=== PATIENT | female | born 1950 | race African-American/Black ===

== ENCOUNTER 2018-08-03 12:03 | Inpatient (IN) | payer MEDICARE, MEDICAID ==
[2018-08-03] MEDS ORDERED: LORazepam 2 MG/ML INJ IM STA (12:26)
[2018-08-03] MEDS ORDERED: ZIPRASIDONE 20 MG VIAL IM STA (12:26)
--- NOTE | 2018-08-03 12:31 | ED ---
Psych HPI - General Chief Complaint: Psychiatric Symptoms Stated Complaint: MENTAL HEALTH PETITION Time Seen by Provider: 08/03/18 12:10 Source: police, RN notes reviewed Mode of arrival: ambulatory - History of Present Illness Initial Comments: This is a 67-year-old female with a known medical history was brought in by police under petition. Patient apparently is been demonstrating a flight of ideas and very aggressive and agitated. She's been seen things that aren't there including snakes. She stated that the poor putting nails and her feet. She apparently and route was having a conversation with no known person. Upon arrival she was very combative verbally abusive and at other times without answer any questions. No trauma is reported no other currently known modifying factors MD Complaint: other - Related Data Home Medications Medication Instructions Recorded Confirmed Cephalexin [Keflex] 500 mg PO QID 08/03/18 08/03/18 OLANZapine [ZyPREXA] 2.5 mg PO DAILY 08/03/18 08/03/18 metFORMIN HCL ER [Glucophage Xr] 1,000 mg PO PC-SUPPER 08/03/18 08/03/18 Allergies Allergy/AdvReac Type Severity Reaction Status Date / Time Unable to Assess Allergy Verified 08/03/18 12:08 Review of Systems ROS Statement: Those systems with pertinent positive or pertinent negative responses have been documented in the HPI. ROS Other: All systems not noted in ROS Statement are negative. Limitations: ROS unobtainable due to patients medical condition Past Medical History Past Medical History: Unable to Obtain Additional Past Medical History / Comment(s): refusing to respond History of Any Multi-Drug Resistant Organisms: Unobtainable Past Surgical History: Unable to Obtain Past Psychological History: Unable to Obtain Smoking Status: Unknown if ever smoked Past Alcohol Use History: Unable to Obtain Past Drug Use History: Unable to Obtain General Exam - General Exam Comments Initial Comments: This is a well-developed well-nourished awake alert agitated female Limitations: no limitations General appearance: alert, anxious Head exam: Present: atraumatic, normocephalic, normal inspection Eye exam: Present: normal appearance, PERRL, EOMI. Absent: scleral icterus, conjunctival injection, periorbital swelling ENT exam: Present: normal exam, mucous membranes moist Neck exam: Present: normal inspection. Absent: tenderness, meningismus, lymphadenopathy Respiratory exam: Present: normal lung sounds bilaterally. Absent: respiratory distress, wheezes, rales, rhonchi, stridor Cardiovascular Exam: Present: regular rate, normal rhythm, normal heart sounds. Absent: systolic murmur, diastolic murmur, rubs, gallop, clicks GI/Abdominal exam: Present: soft, normal bowel sounds. Absent: distended, tenderness, guarding, rebound, rigid Extremities exam: Present: normal inspection, full ROM, normal capillary refill. Absent: tenderness, pedal edema, joint swelling, calf tenderness Back exam: Present: normal inspection Neurological exam: Present: alert, altered, CN II-XII intact Psychiatric exam: Present: agitated, manic Skin exam: Present: warm, dry, intact, normal color. Absent: rash Course Vital Signs 08/03/18 08/03/18 12:52 15:32 Pulse Rate 68 78 Respiratory 20 15 Rate Blood Pressure 198/101 122/85 O2 Sat by Pulse 97 Oximetry Medical Decision Making - Medical Decision Making The patient was evaluated by the psychiatric service and will be admitted for inpatient treatment of acute psychosis. I did fill out a clinical certificate. - Lab Data Result diagrams: 08/03/18 13:18 08/03/18 13:18 Lab Results 08/03/18 08/03/18 08/03/18 Range/Units 13:18 13:18 13:18 WBC 6.2 (3.8-10.6) k/uL RBC 4.38 (3.80-5.40) m/uL Hgb 13.2 (11.4-16.0) gm/dL Hct 41.4 (34.0-46.0) % MCV 94.5 (80.0-100.0) fL MCH 30.1 (25.0-35.0) pg MCHC 31.9 (31.0-37.0) g/dL RDW 12.4 (11.5-15.5) % Plt Count 179 (150-450) k/uL Neutrophils % 72 % Lymphocytes % 20 % Monocytes % 5 % Eosinophils % 2 % Basophils % 0 % Neutrophils # 4.4 (1.3-7.7) k/uL Lymphocytes # 1.2 (1.0-4.8) k/uL Monocytes # 0.3 (0-1.0) k/uL Eosinophils # 0.1 (0-0.7) k/uL Basophils # 0.0 (0-0.2) k/uL Sodium 140 (137-145) mmol/L Potassium 3.9 (3.5-5.1) mmol/L Chloride 109 H (98-107) mmol/L Carbon Dioxide 21 L (22-30) mmol/L Anion Gap 10 mmol/L BUN 20 H (7-17) mg/dL Creatinine 0.75 (0.52-1.04) mg/dL Est GFR (CKD-EPI)AfAm >90 (>60 ml/min/1.73 sqM) Est GFR (CKD-EPI)NonAf 83 (>60 ml/min/1.73 sqM) Glucose 126 H (74-99) mg/dL Calcium 9.1 (8.4-10.2) mg/dL Total Bilirubin 0.3 (0.2-1.3) mg/dL AST 24 (14-36) U/L ALT 28 (9-52) U/L Alkaline Phosphatase 62 (38-126) U/L Ammonia 17 (<30) umol/L Troponin I (0.000-0.034) ng/mL Total Protein 6.6 (6.3-8.2) g/dL Albumin 3.6 (3.5-5.0) g/dL Urine Color Urine Appearance (Clear) Urine pH (5.0-8.0) Ur Specific [place] (1.001-1.035) Urine Protein (Negative) Urine Glucose (UA) (Negative) Urine Ketones (Negative) Urine Blood (Negative) Urine Nitrite (Negative) Urine Bilirubin (Negative) Urine Urobilinogen (<2.0) mg/dL Ur Leukocyte Esterase (Negative) Urine RBC (0-5) /hpf Urine WBC (0-5) /hpf Urine Bacteria (None) /hpf Urine Mucus (None) /hpf Salicylates <1.0 mg/dL Urine Opiates Screen (NotDetected) Ur Oxycodone Screen (NotDetected) Urine Methadone Screen (NotDetected) Ur Propoxyphene Screen (NotDetected) Acetaminophen <10.0 ug/mL Ur Barbiturates Screen (NotDetected) U Tricyclic Antidepress (NotDetected) Ur Phencyclidine Scrn (NotDetected) Ur Amphetamines Screen (NotDetected) U Methamphetamines Scrn (NotDetected) U Benzodiazepines Scrn (NotDetected) Urine Cocaine Screen (NotDetected) U Marijuana (THC) Screen (NotDetected) Serum Alcohol <10 mg/dL 08/03/18 08/03/18 Range/Units 13:18 14:15 WBC (3.8-10.6) k/uL RBC (3.80-5.40) m/uL Hgb (11.4-16.0) gm/dL Hct (34.0-46.0) % MCV (80.0-100.0) fL MCH (25.0-35.0) pg MCHC (31.0-37.0) g/dL RDW (11.5-15.5) % Plt Count (150-450) k/uL Neutrophils % % Lymphocytes % % Monocytes % % Eosinophils % % Basophils % % Neutrophils # (1.3-7.7) k/uL Lymphocytes # (1.0-4.8) k/uL Monocytes # (0-1.0) k/uL Eosinophils # (0-0.7) k/uL Basophils # (0-0.2) k/uL Sodium (137-145) mmol/L Potassium (3.5-5.1) mmol/L Chloride (98-107) mmol/L Carbon Dioxide (22-30) mmol/L Anion Gap mmol/L BUN (7-17) mg/dL Creatinine (0.52-1.04) mg/dL Est GFR (CKD-EPI)AfAm (>60 ml/min/1.73 sqM) Est GFR (CKD-EPI)NonAf (>60 ml/min/1.73 sqM) Glucose (74-99) mg/dL Calcium (8.4-10.2) mg/dL Total Bilirubin (0.2-1.3) mg/dL AST (14-36) U/L ALT (9-52) U/L Alkaline Phosphatase (38-126) U/L Ammonia (<30) umol/L Troponin I <0.012 (0.000-0.034) ng/mL Total Protein (6.3-8.2) g/dL Albumin (3.5-5.0) g/dL Urine Color Colorless Urine Appearance Clear (Clear) Urine pH 6.5 (5.0-8.0) Ur Specific [place] 1.005 (1.001-1.035) Urine Protein Negative (Negative) Urine Glucose (UA) Negative (Negative) Urine Ketones Negative (Negative) Urine Blood Negative (Negative) Urine Nitrite Negative (Negative) Urine Bilirubin Negative (Negative) Urine Urobilinogen <2.0 (<2.0) mg/dL Ur Leukocyte Esterase Moderate H (Negative) Urine RBC 2 (0-5) /hpf Urine WBC 7 H (0-5) /hpf Urine Bacteria Occasional H (None) /hpf Urine Mucus Rare H (None) /hpf Salicylates mg/dL Urine Opiates Screen Not Detected (NotDetected) Ur Oxycodone Screen Not Detected (NotDetected) Urine Methadone Screen Not Detected (NotDetected) Ur Propoxyphene Screen Not Detected (NotDetected) Acetaminophen ug/mL Ur Barbiturates Screen Not Detected (NotDetected) U Tricyclic Antidepress Not Detected (NotDetected) Ur Phencyclidine Scrn Not Detected (NotDetected) Ur Amphetamines Screen Not Detected (NotDetected) U Methamphetamines Scrn Not Detected (NotDetected) U Benzodiazepines Scrn Not Detected (NotDetected) Urine Cocaine Screen Not Detected (NotDetected) U Marijuana (THC) Screen Not Detected (NotDetected) Serum Alcohol mg/dL Disposition Clinical Impression: Acute psychosis Disposition: TRANSFER TO PSYCH HOSP/UNIT Condition: Stable Referrals: None,Stated [Primary Care Provider] - 1-2 days
[2018-08-03 13:30] LABS: Basophils % (A) 0 %; Eosinophils # (A) 0.1 k/uL (0-0.7); Eosinophils % (A) 2 %; HCT 41.4 % (34.0-46.0); HGB 13.2 gm/dL (11.4-16.0); Lymphocytes # (A) 1.2 k/uL (1.0-4.8); Lymphocytes % (A) 20 %; MCH 30.1 pg (25.0-35.0); MCHC 31.9 g/dL (31.0-37.0); MCV 94.5 fL (80.0-100.0); Monocytes # (A) 0.3 k/uL (0-1.0); Monocytes % (A) 5 %; Neutrophils # (A) 4.4 k/uL (1.3-7.7); Neutrophils % (A) 72 %; Platelet Count 179 k/uL (150-450); RBC 4.38 m/uL (3.80-5.40); RDW 12.4 % (11.5-15.5); WBC 6.2 k/uL (3.8-10.6)
[2018-08-03 13:42] LABS: ALT 28 U/L (9-52); AST 24 U/L (14-36); Acetaminophen <10.0 ug/mL; Albumin 3.6 g/dL (3.5-5.0); Alcohol <10 mg/dL; Alkaline Phosphatase 62 U/L (38-126); Anion Gap 10 mmol/L; Blood Urea Nitrogen 20 mg/dL (7-17); Calcium 9.1 mg/dL (8.4-10.2); Carbon Dioxide 21 mmol/L (22-30); Chloride 109 mmol/L (98-107); Glucose 126 mg/dL (74-99); Potassium 3.9 mmol/L (3.5-5.1); Salicylate <1.0 mg/dL; Sodium 140 mmol/L (137-145); Total Bilirubin 0.3 mg/dL (0.2-1.3); Total Protein 6.6 g/dL (6.3-8.2)
[2018-08-03 14:27] LABS: Appearance,Urine Clear (Clear); Bacteria,Urine Occasional /hpf; Bilirubin,Urine Negative (Negative); Blood,Urine Negative (Negative); Color,Urine Colorless; Glucose,Urine (UA) Negative (Negative); Ketones,Urine Negative (Negative); Leukocyte Esterase,Urine Moderate (Negative); Mucus,Urine Rare /hpf; Nitrite,Urine Negative (Negative); PH, Urine 6.5 (5.0-8.0); Protein,Urine Negative (Negative); RBC,Urine 2 /hpf (0-5); Specific Gravity,Urine 1.005 (1.001-1.035); Urobilinogen,Urine <2.0 mg/dL (<2.0); WBC,Urine 7 /hpf (0-5)
[2018-08-03 14:36] LABS: Amphetamine Screen,Urine Not Detected (NotDetected); Barbiturate Screen,Urine Not Detected (NotDetected); Benzodiazepines Screen,Urine Not Detected (NotDetected); Cocaine Screen,Urine Not Detected (NotDetected); Methadone Screen, Urine Not Detected (NotDetected); Opiate Screen,Urine Not Detected (NotDetected); Oxycodone Screen, Urine Not Detected (NotDetected); Phencyclidine Screen,Urine Not Detected (NotDetected); Tricyclic Antidepressant,Urine Not Detected (NotDetected); Urn Cannabinoid Scrn Not Detected (NotDetected)
[2018-08-03] MEDS ORDERED: ZIPRASIDONE 20 MG VIAL IM PRN (20:17)
[2018-08-03] MEDS ORDERED: LORazepam 1 MG TAB PO PRN (20:17)
[2018-08-03] MEDS ORDERED: MAGNESIUM HYDROXIDE 2,400 MG/10 ML CUP PO PRN (20:17)
[2018-08-03] MEDS ORDERED: MAG HYDROX/AL HYDROX/SIMETH 30 ML CUP PO PRN (20:17)
[2018-08-03] MEDS ORDERED: ACETAMINOPHEN TAB 325 MG TAB PO PRN (20:17)
--- NOTE | 2018-08-03 23:26 | P.HPMEDMHU ---
History of Present Illness H&P Date: 08/03/18 Chief Complaint: MHU HPI The patient is a 67-year-old -[place] female with a past medical history of type 2 diabetes and schizophrenia who is admitted to the mental health unit due to increase concerns for acute psychosis on her underlying schizophrenia. Apparently the patient has been having increased paranoid delusions regarding taking her medications, she has been reporting that olanzapine has snake toxin in it which she cannot take and can only take Zyprexa. She also reports that her primary care physician Dr. Cardona has weaned her off her psychiatric medications and metformin. The patient reports that she was brought here and was manhandled by police when they put and Her, she also reports that her neighbors have been using her apartment for prostitution and that she refuses to engage in those acts. Per EPS reports the patient was found in clothing soiled with feces and was was aggressive, paranoid and was not allowing ER staff to clean her up. She was given Geodon and Ativan. Review of Systems Pertinent positives per HPI, all other review of systems are otherwise negative Past Medical History Past Medical History: Unable to Obtain Additional Past Medical History / Comment(s): refusing to respond History of Any Multi-Drug Resistant Organisms: Unobtainable Past Surgical History: Unable to Obtain Past Psychological History: Unable to Obtain Smoking Status: Unknown if ever smoked Past Alcohol Use History: Unable to Obtain Past Drug Use History: Unable to Obtain Medications and Allergies Home Medications Medication Instructions Recorded Confirmed Type Cephalexin [Keflex] 500 mg PO QID 08/03/18 08/03/18 History OLANZapine [ZyPREXA] 2.5 mg PO DAILY 08/03/18 08/03/18 History metFORMIN HCL ER [Glucophage Xr] 1,000 mg PO PC-SUPPER 08/03/18 08/03/18 History Allergies Allergy/AdvReac Type Severity Reaction Status Date / Time Unable to Assess Allergy Verified 08/03/18 20:32 Physical Exam Vitals: Vital Signs Pulse Resp BP Pulse Ox 08/03/18 15:32 78 15 122/85 97 08/03/18 12:52 68 20 198/101 Intake and Output 08/03/18 08/03/18 08/04/18 14:59 22:59 06:59 Other: Weight 72.575 kg Constitutional: No acute distress, conversant, pleasant Eyes: Anicteric sclerae, moist conjunctiva, no lid-lag, PERRLA ENMT: NC/AT,Oropharynx clear, no erythema, exudates Neck:Supple, FROM, no masses, or JVD, No carotid bruits; No thyromegaly Lungs: Clear to auscultation, Clear to percussion, Normal respiratory effort, no accessory muscle use Cardiovascular: Heart regular in rate and rhythm, No murmurs, gallops, or rubs no peripheral edema Abdominal: Soft Nontender, nom distended, no guarding, no rebound or rigidity, Normoactive bowel sounds No hepatomegaly, No splenomegaly, No palpable mass No abdominal wall hernia noted Skin: Normal temperature, tone, texture, turgor, No induration No subcutaneous nodules, No rash, lesions, No ulcers Extremities:No digital cyanosis No clubbing, Pedal pulses intact and symmetrical Radial pulses intact and symmetrical Normal gait and station, No calf tenderness Psychiatric: Poor insight, tangential, pressured speech, paranoid delusions regarding medication, reporting prostitution at her apartment Neuro: Muscles Strength 5/5 in all 4 extremities, Sensation to light touch grossly present throughout, Cranial nerves II-XII grossly intact. No focal sensory deficits Cranial Nerve Examination - Cranial Nerves Cranial Nerve II- Optic: Intact Cranial Nerve III- Oculomotor: Intact Cranial Nerve IV- Trochlear: Intact Cranial Nerve V- Trigeminal: Intact Cranial Nerve - Abducens: Intact Cranial Nerve VII- Facial: Intact Cranial Nerve VIII- Auditory: Intact Cranial Nerve IX- Glossopharyngeal: Intact Cranial Nerve X- Vagus: Intact Cranial Nerve XI- Accessory: Intact Cranial Nerve XII- Hypoglossal: Intact Results CBC & Chem 7: 08/03/18 13:18 08/03/18 13:18 Labs: Abnormal Lab Results - Last 24 Hours (Table) 08/03/18 08/03/18 Range/Units 13:18 14:15 Chloride 109 H (98-107) mmol/L Carbon Dioxide 21 L (22-30) mmol/L BUN 20 H (7-17) mg/dL Glucose 126 H (74-99) mg/dL Ur Leukocyte Esterase Moderate H (Negative) Urine WBC 7 H (0-5) /hpf Urine Bacteria Occasional H (None) /hpf Urine Mucus Rare H (None) /hpf Thrombosis Risk Factor Assmnt - Choose All That Apply Each Factor Represents 1 point: Obesity (BMI >25) Each Risk Factor Represents 2 Points: Age 61-74 years Thrombosis Risk Factor Assessment Total Risk Factor Score: 3 Thrombosis Risk Factor Assessment Level: Moderate Risk Assessment and Plan (1) Schizophrenia, chronic with acute exacerbation Current Visit: Yes Status: Acute Code(s): F20.9 - SCHIZOPHRENIA, UNSPECIFIED SNOMED Code(s): 206472024 (2) Type 2 diabetes mellitus Current Visit: Yes Status: Acute Code(s): E11.9 - TYPE 2 DIABETES MELLITUS WITHOUT COMPLICATIONS SNOMED Code(s): 04949612 (3) Elevated blood pressure reading Current Visit: Yes Status: Acute Code(s): R03.0 - ELEVATED BLOOD-PRESSURE READING, W/O DIAGNOSIS OF HTN SNOMED Code(s): 28087982 Plan: The patient is admitted to the mental health unit with acute exacerbation of her schizophrenia with acute psychosis paranoid delusions, will defer to the inpatient psychiatry team regarding ongoing psychotropic medications and ongoing cognitive behavioral therapy. The patient is resumed on her metformin for her diabetes A1c is pending. The patient is noted to have elevated blood pressure but denies any history of hypertension, we'll continue to check her blood pressures and will start Norvasc and continue to monitor and follow her clinical course Further questions or concerns please do not hesitate to contact the sound inpatient team. I appreciate opportunity to be involved in ongoing care of this patient
[2018-08-04 02:03] VITALS: BMI 29.0
[2018-08-04] MEDS: amLODIPine 10 MG TAB PO SCH (07:51)
[2018-08-04] MEDS: OLANZapine 2.5 MG TAB PO SCH (07:51)
--- NOTE | 2018-08-04 10:08 | P.HP ---
Psychiatric H&P - . H&P Date: 08/04/18 History & Physical: Allergies Allergy/AdvReac Type Severity Reaction Status Date / Time Unable to Assess Allergy Verified 08/03/18 20:32 Vital Signs Temp 97.4 F L 08/04/18 01:36 Pulse 77 08/04/18 01:36 Resp 16 08/04/18 01:36 BP 185/97 08/04/18 01:36 Pulse Ox 97 08/03/18 15:32 Intake & Output 08/03/18 08/04/18 08/04/18 18:59 06:59 18:59 Weight 72.575 kg 71.9 kg Laboratory Last Values WBC 6.2 k/uL (3.8-10.6) 08/03/18 13:18 RBC 4.38 m/uL (3.80-5.40) 08/03/18 13:18 Hgb 13.2 gm/dL (11.4-16.0) 08/03/18 13:18 Hct 41.4 % (34.0-46.0) 08/03/18 13:18 MCV 94.5 fL (80.0-100.0) 08/03/18 13:18 MCH 30.1 pg (25.0-35.0) 08/03/18 13:18 MCHC 31.9 g/dL (31.0-37.0) 08/03/18 13:18 RDW 12.4 % (11.5-15.5) 08/03/18 13:18 Plt Count 179 k/uL (150-450) 08/03/18 13:18 Neutrophils % 72 % 08/03/18 13:18 Lymphocytes % 20 % 08/03/18 13:18 Monocytes % 5 % 08/03/18 13:18 Eosinophils % 2 % 08/03/18 13:18 Basophils % 0 % 08/03/18 13:18 Neutrophils # 4.4 k/uL (1.3-7.7) 08/03/18 13:18 Lymphocytes # 1.2 k/uL (1.0-4.8) 08/03/18 13:18 Monocytes # 0.3 k/uL (0-1.0) 08/03/18 13:18 Eosinophils # 0.1 k/uL (0-0.7) 08/03/18 13:18 Basophils # 0.0 k/uL (0-0.2) 08/03/18 13:18 Sodium 140 mmol/L (137-145) 08/03/18 13:18 Potassium 3.9 mmol/L (3.5-5.1) 08/03/18 13:18 Chloride 109 mmol/L (98-107) H 08/03/18 13:18 Carbon Dioxide 21 mmol/L (22-30) L 08/03/18 13:18 Anion Gap 10 mmol/L 08/03/18 13:18 BUN 20 mg/dL (7-17) H 08/03/18 13:18 Creatinine 0.75 mg/dL (0.52-1.04) 08/03/18 13:18 Est GFR (CKD-EPI)AfAm >90 (>60 ml/min/1.73 sqM) 08/03/18 13:18 Est GFR (CKD-EPI)NonAf 83 (>60 ml/min/1.73 sqM) 08/03/18 13:18 Glucose 126 mg/dL (74-99) H 08/03/18 13:18 Calcium 9.1 mg/dL (8.4-10.2) 08/03/18 13:18 Total Bilirubin 0.3 mg/dL (0.2-1.3) 08/03/18 13:18 AST 24 U/L (14-36) 08/03/18 13:18 ALT 28 U/L (9-52) 08/03/18 13:18 Alkaline Phosphatase 62 U/L (38-126) 08/03/18 13:18 Ammonia 17 umol/L (<30) 08/03/18 13:18 Troponin I <0.012 ng/mL (0.000-0.034) 08/03/18 13:18 Total Protein 6.6 g/dL (6.3-8.2) 08/03/18 13:18 Albumin 3.6 g/dL (3.5-5.0) 08/03/18 13:18 Urine Color Colorless 08/03/18 14:15 Urine Appearance Clear (Clear) 08/03/18 14:15 Urine pH 6.5 (5.0-8.0) 08/03/18 14:15 Ur Specific [place] 1.005 (1.001-1.035) 08/03/18 14:15 Urine Protein Negative (Negative) 08/03/18 14:15 Urine Glucose (UA) Negative (Negative) 08/03/18 14:15 Urine Ketones Negative (Negative) 08/03/18 14:15 Urine Blood Negative (Negative) 08/03/18 14:15 Urine Nitrite Negative (Negative) 08/03/18 14:15 Urine Bilirubin Negative (Negative) 08/03/18 14:15 Urine Urobilinogen <2.0 mg/dL (<2.0) 08/03/18 14:15 Ur Leukocyte Esterase Moderate (Negative) H 08/03/18 14:15 Urine RBC 2 /hpf (0-5) 08/03/18 14:15 Urine WBC 7 /hpf (0-5) H 08/03/18 14:15 Urine Bacteria Occasional /hpf (None) H 08/03/18 14:15 Urine Mucus Rare /hpf (None) H 08/03/18 14:15 Salicylates <1.0 mg/dL 08/03/18 13:18 Urine Opiates Screen Not Detected (NotDetected) 08/03/18 14:15 Ur Oxycodone Screen Not Detected (NotDetected) 08/03/18 14:15 Urine Methadone Screen Not Detected (NotDetected) 08/03/18 14:15 Ur Propoxyphene Screen Not Detected (NotDetected) 08/03/18 14:15 Acetaminophen <10.0 ug/mL 08/03/18 13:18 Ur Barbiturates Screen Not Detected (NotDetected) 08/03/18 14:15 U Tricyclic Antidepress Not Detected (NotDetected) 08/03/18 14:15 Ur Phencyclidine Scrn Not Detected (NotDetected) 08/03/18 14:15 Ur Amphetamines Screen Not Detected (NotDetected) 08/03/18 14:15 U Methamphetamines Scrn Not Detected (NotDetected) 08/03/18 14:15 U Benzodiazepines Scrn Not Detected (NotDetected) 08/03/18 14:15 Urine Cocaine Screen Not Detected (NotDetected) 08/03/18 14:15 U Marijuana (THC) Screen Not Detected (NotDetected) 08/03/18 14:15 Serum Alcohol <10 mg/dL 08/03/18 13:18 Assessment and Plan Assessment: Chief Complaint: Psychiatric Symptoms Stated Complaint: MENTAL HEALTH PETITION Source: police, RN notes reviewedand personal interview with client Mode of arrival: ambulatory - History of Present Illness Initial Comments: This is a 67-year-old female with a known medical history was brought in by police under petition. Patient apparently is been demonstrating a flight of ideas and very aggressive and agitated. She's been seen things that aren't there including snakes. She stated that the poor putting nails and her feet. She apparently and route was having a conversation with no known person. Upon arrival she was very combative verbally abusive and at other times without answer any questions. No trauma is reported no other currently known modifying factors Home Medications Medication Instructions Recorded Confirmed Cephalexin [Keflex] 500 mg PO QID 08/03/18 08/03/18 OLANZapine [ZyPREXA] 2.5 mg PO DAILY 08/03/18 08/03/18 metFORMIN HCL ER [Glucophage Xr] 1,000 mg PO PC-SUPPER 08/03/18 08/03/18 Past Medical History Past Medical History: Unable to Obtain Additional Past Medical History / Comment(s): refusing to respond History of Any Multi-Drug Resistant Organisms: Unobtainable Past Surgical History: Unable to Obtain Past Psychological History: Unable to Obtain Smoking Status: Unknown if ever smoked Past Alcohol Use History: Unable to Obtain Past Drug Use History: Unable to Obtain Musculoskeletal Examination - Abnormal/Involuntary Movements: [none] Strength: [greater than antigravity (greater than/equal to 3/5) in all extremities:] Muscle Tone: [no impairment, ] Gait: [grossly normal, ] Station: [grossly normal] Mental Status Examination - General Appearance: [ disheveled, casual, bizarre, appears older than stated age ] Speech/Language: [slow, rapid, slurred, rambled, mumbling, hesitant, halting, monotone, expressive,, loud,] Attitude/Behavior: [guarded, irritable, withdrawn, indifferent] Mood: [ depressed, euphoric, anxious, elated, irritable, angry, fearful] Affect: [lively, incongruent, labile, other] Orientation: [not time, person, place situation] Thought Content: [ delusions Risk Factors: [no suicidal (ideations, plan), and/or Homicidal (ideations, plan) ] Perception: [hallucinations (auditory] Thought Processes: [concrete, circumstantial, tangential Concentration/Attention Span: [impaired] [Per observation and interview with the patient] Recent Memory: impaired] [0 out of 3 in 3 minutes] Remote Memory: [ impaired] [past events, as related history] Intelligence: [below average] [based on history, based on vocabulary, syntax, grammar, and content] Judgement: [ poor] [per patient's behavior/history of present illness] Insight: [ poor] [understanding severity of illness/history of present illness] Admitting Diagnosis: [schizophrenia acute exacerbation with psychosis] Patient Strengths - Steady employment/financial stability: [disability] Housing stability: [x] Patient Limitations: [medication, non-compliance, pathological/unsupported environment, no interests, intellectual impairment, legal issues, lack of social supports] Initial Plan of Care: [she was on demand order for coming to the hospital and she has no insight she'll have to return to court for mandatory treatment. She' ll be admitted to [facility] environment, medical workup, psychiatric workup in process, nursing evaluation, social work evaluation, and recreational therapy.] Estimated Length of Stay: [5-7 days] Initial Discharge Plan: [ [facility], referred to therapist] Prognosis: [guarded] Justification for Inpatient Hospitalization - [Hallucinations, delusions, agitation, anxiety, depression resulting in significant loss of functioning.] [Dangerous to self, others, or property with need for controlled environment.] [Emotional or behavioral conditions and complications requiring 24 hour medical and nursing care.] [Need for special drug therapy, or other therapeutic program requiring continuous hospitalization.] [Failure of social or occupational functioning.] [Inability to meet basic life and health needs.] [Legally mandated admission.] [Failure of treatment at a lower level of care.] (1) Schizophrenia, chronic with acute exacerbation Current Visit: Yes Status: Acute Priority: High Code(s): F20.9 - SCHIZOPHRENIA, UNSPECIFIED SNOMED Code(s): 451178130 Time with Patient: Less than 30
[2018-08-04] MEDS: metFORMIN 500 MG TAB PO SCH (17:15)
--- NOTE | 2018-08-05 08:47 | P.PN ---
Subjective Progress Note Date: 08/05/18 Principal diagnosis: mute schizoaffective disorder his is a 67-year-old female with a known medical history was brought in by police under petition. Patient apparently is been demonstrating a flight of ideas and very aggressive and agitated. She's been seen things that aren't there including snakes. She stated that the poor putting nails and her feet. She apparently and route was having a conversation with no known person. Upon arrival she was very combative verbally abusive and at other times without answer any questions. No trauma is reported no other currently known modifying factors Home Medications Medication Instructions Recorded Confirmed Cephalexin [Keflex] 500 mg PO QID 08/03/18 08/03/18 OLANZapine [ZyPREXA] 2.5 mg PO DAILY 08/03/18 08/03/18 metFORMIN HCL ER [Glucophage Xr] 1,000 mg PO PC-SUPPER 08/03/18 08/03/18 Past Medical History Past Medical History: Unable to Obtain Additional Past Medical History / Comment(s): refusing to respond History of Any Multi-Drug Resistant Organisms: Unobtainable Past Surgical History: Unable to Obtain Past Psychological History: Unable to Obtain Smoking Status: Unknown if ever smoked Past Alcohol Use History: Unable to Obtain Past Drug Use History: Unable to Obtain Musculoskeletal Examination - Abnormal/Involuntary Movements: [none] Strength: [greater than antigravity (greater than/equal to 3/5) in all extremities:] Muscle Tone: [no impairment, ] Gait: [grossly normal, ] Station: [grossly normal] Mental Status Examination - General Appearance: [ disheveled, casual, bizarre, appears older than stated age ] Speech/Language: [slow, rapid, slurred, rambled, mumbling, hesitant, halting, monotone, expressive,, loud,] Attitude/Behavior: [guarded, irritable, withdrawn, indifferent] Mood: [ depressed, euphoric, anxious, elated, irritable, angry, fearful] Affect: [lively, incongruent, labile, other] Orientation: [not time, person, place situation] Thought Content: [ delusions Risk Factors: [no suicidal (ideations, plan), and/or Homicidal (ideations, plan) ] Perception: [hallucinations (auditory] Thought Processes: [concrete, circumstantial, tangential Concentration/Attention Span: [impaired] [Per observation and interview with the patient] Recent Memory: impaired] [0 out of 3 in 3 minutes] Remote Memory: [ impaired] [past events, as related history] Intelligence: [below average] [based on history, based on vocabulary, syntax, grammar, and content] Judgement: [ poor] [per patient's behavior/history of present illness] Insight: [ poor] [understanding severity of illness/history of present illness] Admitting Diagnosis: [schizophrenia acute exacerbation with psychosis] Patient Strengths - Steady employment/financial stability: [disability] Housing stability: [x] Patient Limitations: [medication, non-compliance, pathological/unsupported environment, no interests, intellectual impairment, legal issues, lack of social supports] Initial Plan of Care: [she was on demand order for coming to the hospital and she has no insight she'll have to return to court for mandatory treatment. She' ll be admitted to [facility], medical workup, psychiatric workup in process, nursing evaluation, social work evaluation, and recreational therapy.] Estimated Length of Stay: [5-7 days] Initial Discharge Plan: [ [facility], referred to therapist] Prognosis: [guarded] Objective - Vital Signs Vital signs: Vital Signs Temp 98.0 F 08/05/18 06:16 Pulse 68 08/05/18 06:16 Resp 14 08/05/18 06:16 BP 133/77 08/05/18 06:16 Pulse Ox 97 08/03/18 15:32 - Labs CBC & Chem 7: 08/03/18 13:18 08/03/18 13:18 Assessment and Plan (1) Schizophrenia, chronic with acute exacerbation Current Visit: Yes Status: Acute Priority: High Code(s): F20.9 - SCHIZOPHRENIA, UNSPECIFIED SNOMED Code(s): 960809757
[2018-08-05] MEDS: OLANZapine 2.5 MG TAB PO SCH (09:14)
[2018-08-05] MEDS: amLODIPine 10 MG TAB PO SCH (09:14)
[2018-08-05] MEDS: metFORMIN 500 MG TAB PO SCH (16:31)
[2018-08-06] MEDS: OLANZapine 2.5 MG TAB PO SCH (07:49)
[2018-08-06] MEDS: amLODIPine 10 MG TAB PO SCH (07:49)
--- NOTE | 2018-08-06 09:34 | P.PN ---
Subjective Progress Note Date: 08/06/18 Principal diagnosis: mute schizoaffective disorder his is a 67-year-old female with a known medical history was brought in by police under petition. Patient apparently is been demonstrating a flight of ideas and very aggressive and agitated. She's been seen things that aren't there including snakes. She stated that the poor putting nails and her feet. She apparently and route was having a conversation with no known person. Upon arrival she was very combative verbally abusive and at other times without answer any questions. No trauma is reported no other currently known modifying factors Home Medications Medication Instructions Recorded Confirmed Cephalexin [Keflex] 500 mg PO QID 08/03/18 08/03/18 OLANZapine [ZyPREXA] 2.5 mg PO DAILY 08/03/18 08/03/18 metFORMIN HCL ER [Glucophage Xr] 1,000 mg PO PC-SUPPER 08/03/18 08/03/18 Past Medical History Past Medical History: Unable to Obtain Additional Past Medical History / Comment(s): refusing to respond History of Any Multi-Drug Resistant Organisms: Unobtainable Past Surgical History: Unable to Obtain Past Psychological History: Unable to Obtain Smoking Status: Unknown if ever smoked Past Alcohol Use History: Unable to Obtain Past Drug Use History: Unable to Obtain Musculoskeletal Examination - Abnormal/Involuntary Movements: [none] Strength: [greater than antigravity (greater than/equal to 3/5) in all extremities:] Muscle Tone: [no impairment, ] Gait: [grossly normal, ] Station: [grossly normal] Mental Status Examination - General Appearance: [ disheveled, casual, bizarre, appears older than stated age ] Speech/Language: [slow, rapid, slurred, rambled, mumbling, hesitant, halting, monotone, expressive,, loud,] Attitude/Behavior: [guarded, irritable, withdrawn, indifferent] Mood: [ depressed, euphoric, anxious, elated, irritable, angry, fearful] Affect: [lively, incongruent, labile, other] Orientation: [not time, person, place situation] Thought Content: [ delusions Risk Factors: [no suicidal (ideations, plan), and/or Homicidal (ideations, plan) ] Perception: [hallucinations (auditory] Thought Processes: [concrete, circumstantial, tangential Concentration/Attention Span: [impaired] [Per observation and interview with the patient] Recent Memory: impaired] [0 out of 3 in 3 minutes] Remote Memory: [ impaired] [past events, as related history] Intelligence: [below average] [based on history, based on vocabulary, syntax, grammar, and content] Judgement: [ poor] [per patient's behavior/history of present illness] Insight: [ poor] [understanding severity of illness/history of present illness] Admitting Diagnosis: [schizophrenia acute exacerbation with psychosis] Patient Strengths - Steady employment/financial stability: [disability] Housing stability: [x] Patient Limitations: [medication, non-compliance, pathological/unsupported environment, no interests, intellectual impairment, legal issues, lack of social supports] Initial Plan of Care: [she was on demand order for coming to the hospital and she has no insight she'll have to return to court for mandatory treatment. She' ll be admitted to [facility], medical workup, psychiatric workup in process, nursing evaluation, social work evaluation, and recreational therapy.] Estimated Length of Stay: [5-7 days] Initial Discharge Plan: [ [facility], referred to therapist] Prognosis: [guarded] Objective - Vital Signs Vital signs: Vital Signs Temp 98.2 F 08/06/18 05:48 Pulse 91 08/06/18 05:48 Resp 14 08/06/18 05:48 BP 120/79 08/06/18 05:48 Pulse Ox 97 08/03/18 15:32 - Labs CBC & Chem 7: 08/03/18 13:18 08/03/18 13:18 Assessment and Plan Assessment: Chief Complaint: Psychiatric Symptoms Stated Complaint: [facility] [facility] Source: police, RN notes reviewedand personal interview with client Mode of arrival: ambulatory - History of Present Illness Initial Comments: This is a 67-year-old female with a known medical history was brought in by police under petition. Patient apparently is been demonstrating a flight of ideas and very aggressive and agitated. She's been seen things that aren't there including snakes. She stated that the poor putting nails and her feet. She apparently and route was having a conversation with no known person. Upon arrival she was very combative verbally abusive and at other times without answer any questions. No trauma is reported no other currently known modifying factors Home Medications Medication Instructions Recorded Confirmed Cephalexin [Keflex] 500 mg PO QID 08/03/18 08/03/18 OLANZapine [ZyPREXA] 2.5 mg PO DAILY 08/03/18 08/03/18 metFORMIN HCL ER [Glucophage Xr] 1,000 mg PO PC-SUPPER 08/03/18 08/03/18 Past Medical History Past Medical History: Unable to Obtain Additional Past Medical History / Comment(s): refusing to respond History of Any Multi-Drug Resistant Organisms: Unobtainable Past Surgical History: Unable to Obtain Past Psychological History: Unable to Obtain Smoking Status: Unknown if ever smoked Past Alcohol Use History: Unable to Obtain Past Drug Use History: Unable to Obtain Musculoskeletal Examination - Abnormal/Involuntary Movements: [none] Strength: [greater than antigravity (greater than/equal to 3/5) in all extremities:] Muscle Tone: [no impairment, ] Gait: [grossly normal, ] Station: [grossly normal] Mental Status Examination - General Appearance: [ disheveled, casual, bizarre, appears older than stated age ] Speech/Language: [slow, rapid, slurred, rambled, mumbling, hesitant, halting, monotone, expressive,, loud,] Attitude/Behavior: [guarded, irritable, withdrawn, indifferent] Mood: [ depressed, euphoric, anxious, elated, irritable, angry, fearful] Affect: [lively, incongruent, labile, other] Orientation: [not time, person, place situation] Thought Content: [ delusions Risk Factors: [no suicidal (ideations, plan), and/or Homicidal (ideations, plan) ] Perception: [hallucinations (auditory] Thought Processes: [concrete, circumstantial, tangential Concentration/Attention Span: [impaired] [Per observation and interview with the patient] Recent Memory: impaired] [0 out of 3 in 3 minutes] Remote Memory: [ impaired] [past events, as related history] Intelligence: [below average] [based on history, based on vocabulary, syntax, grammar, and content] Judgement: [ poor] [per patient's behavior/history of present illness] Insight: [ poor] [understanding severity of illness/history of present illness] Admitting Diagnosis: [schizophrenia acute exacerbation with psychosis] Patient Strengths - Steady employment/financial stability: [disability] Housing stability: [x] Patient Limitations: [medication, non-compliance, pathological/unsupported environment, no interests, intellectual impairment, legal issues, lack of social supports] Initial Plan of Care: [she was on demand order for coming to the hospital and she has no insight she'll have to return to court for mandatory treatment. She' ll be admitted to [facility], medical workup, psychiatric workup in process, nursing evaluation, social work evaluation, and recreational therapy.] Estimated Length of Stay: [5-7 days] Initial Discharge Plan: [ [facility], referred to therapist] Prognosis: [guarded] Justification for Inpatient Hospitalization - [Hallucinations, delusions, agitation, anxiety, depression resulting in significant loss of functioning.] [Dangerous to self, others, or property with need for controlled environment.] [Emotional or behavioral conditions and complications requiring 24 hour medical and nursing care.] [Need for special drug therapy, or other therapeutic program requiring continuous hospitalization.] [Failure of social or occupational functioning.] [Inability to meet basic life and health needs.] [Legally mandated admission.] [Failure of treatment at a lower level of care.] (1) Schizophrenia, chronic with acute exacerbation Current Visit: Yes Status: Acute Priority: High Code(s): F20.9 - SCHIZOPHRENIA, UNSPECIFIED SNOMED Code(s): 669959952 Time with Patient: Less than 30
[2018-08-06] MEDS: metFORMIN 500 MG TAB PO SCH (16:42)
[2018-08-07] MEDS: OLANZapine 2.5 MG TAB PO SCH (09:15)
[2018-08-07] MEDS: amLODIPine 10 MG TAB PO SCH (09:15)
--- NOTE | 2018-08-07 12:19 | P.PN ---
Subjective Progress Note Date: 08/07/18 Principal diagnosis: mute schizoaffective disorder his is a 67-year-old female with a known medical history was brought in by police under petition. Patient apparently is been demonstrating a flight of ideas and very aggressive and agitated. She's been seen things that aren't there including snakes. Interval history today: This 67-year-old -[place] female still remains elusive and very disheveled bizarre as stated in the mental status examination below. She is not on participating in treatment. Home Medications Medication Instructions Recorded Confirmed Cephalexin [Keflex] 500 mg PO QID 08/03/18 08/03/18 OLANZapine [ZyPREXA] 2.5 mg PO DAILY 08/03/18 08/03/18 metFORMIN HCL ER [Glucophage Xr] 1,000 mg PO PC-SUPPER 08/03/18 08/03/18 Past Medical History Past Medical History: Unable to Obtain Additional Past Medical History / Comment(s): refusing to respond History of Any Multi-Drug Resistant Organisms: Unobtainable Past Surgical History: Unable to Obtain Past Psychological History: Unable to Obtain Smoking Status: Unknown if ever smoked Past Alcohol Use History: Unable to Obtain Past Drug Use History: Unable to Obtain Musculoskeletal Examination - Abnormal/Involuntary Movements: [none] Strength: [greater than antigravity (greater than/equal to 3/5) in all extremities:] Muscle Tone: [no impairment, ] Gait: [grossly normal, ] Station: [grossly normal] Mental Status Examination - General Appearance: [ disheveled, casual, bizarre, appears older than stated age ] Speech/Language: [slow, rapid, slurred, rambled, mumbling, hesitant, halting, monotone, expressive,, loud,] Attitude/Behavior: [guarded, irritable, withdrawn, indifferent] Mood: [ depressed, euphoric, anxious, elated, irritable, angry, fearful] Affect: [lively, incongruent, labile, other] Orientation: [not time, person, place situation] Thought Content: [ delusions Risk Factors: [no suicidal (ideations, plan), and/or Homicidal (ideations, plan) ] Perception: [hallucinations (auditory] Thought Processes: [concrete, circumstantial, tangential Concentration/Attention Span: [impaired] [Per observation and interview with the patient] Recent Memory: impaired] [0 out of 3 in 3 minutes] Remote Memory: [ impaired] [past events, as related history] Intelligence: [below average] [based on history, based on vocabulary, syntax, grammar, and content] Judgement: [ poor] [per patient's behavior/history of present illness] Insight: [ poor] [understanding severity of illness/history of present illness] Admitting Diagnosis: [schizophrenia acute exacerbation with psychosis] Patient Strengths - Steady employment/financial stability: [disability] Housing stability: [x] Patient Limitations: [medication, non-compliance, pathological/unsupported environment, no interests, intellectual impairment, legal issues, lack of social supports] Initial Plan of Care: [she was on demand order for coming to the hospital and she has no insight she'll have to return to court for mandatory treatment. She' ll be admitted to [facility], medical workup, psychiatric workup in process, nursing evaluation, social work evaluation, and recreational therapy.] Estimated Length of Stay: [5-7 days] Initial Discharge Plan: [ [facility], referred to therapist] Prognosis: [guarded] Objective - Vital Signs Vital signs: Vital Signs Temp 98.3 F 08/07/18 06:23 Pulse 72 08/07/18 10:34 Resp 14 08/07/18 06:23 BP 133/75 08/07/18 10:34 Pulse Ox 97 08/03/18 15:32 - Labs CBC & Chem 7: 08/03/18 13:18 08/03/18 13:18 Assessment and Plan (1) Schizophrenia, chronic with acute exacerbation Current Visit: Yes Status: Acute Priority: High Code(s): F20.9 - SCHIZOPHRENIA, UNSPECIFIED SNOMED Code(s): 648421758
[2018-08-07] MEDS: metFORMIN 500 MG TAB PO SCH (18:07)
[2018-08-08] MEDS: OLANZapine 2.5 MG TAB PO SCH (08:08)
[2018-08-08] MEDS: amLODIPine 10 MG TAB PO SCH (08:08)
--- NOTE | 2018-08-08 13:57 | P.PN ---
Subjective Progress Note Date: 08/08/18 Principal diagnosis: mute schizoaffective disorder his is a 67-year-old female with a known medical history was brought in by police under petition. Patient apparently is been demonstrating a flight of ideas and very aggressive and agitated. She's been seen things that aren't there including snakes. Interval history today: This 67-year-old -[place] female still remains elusive and very disheveled bizarre as stated in the mental status examination below. She is not on participating in treatment. Home Medications Medication Instructions Recorded Confirmed Cephalexin [Keflex] 500 mg PO QID 08/03/18 08/03/18 OLANZapine [ZyPREXA] 2.5 mg PO DAILY 08/03/18 08/03/18 metFORMIN HCL ER [Glucophage Xr] 1,000 mg PO PC-SUPPER 08/03/18 08/03/18 Past Medical History Past Medical History: Unable to Obtain Additional Past Medical History / Comment(s): refusing to respond History of Any Multi-Drug Resistant Organisms: Unobtainable Past Surgical History: Unable to Obtain Past Psychological History: Unable to Obtain Smoking Status: Unknown if ever smoked Past Alcohol Use History: Unable to Obtain Past Drug Use History: Unable to Obtain Objective - Vital Signs Vital signs: Vital Signs Temp 97.9 F 08/08/18 02:21 Pulse 79 08/08/18 02:21 Resp 16 08/08/18 02:21 BP 125/84 08/08/18 02:21 Pulse Ox 97 08/03/18 15:32 - Labs CBC & Chem 7: 08/03/18 13:18 08/03/18 13:18 Assessment and Plan Assessment: Musculoskeletal Examination - Abnormal/Involuntary Movements: [none] Strength: [greater than antigravity (greater than/equal to 3/5) in all extremities:] Muscle Tone: [no impairment, ] Gait: [grossly normal, ] Station: [grossly normal] Mental Status Examination - General Appearance: [ disheveled, casual, bizarre, appears older than stated age ] Speech/Language: [slow, rapid, slurred, rambled, mumbling, hesitant, halting, monotone, expressive,, loud,] Attitude/Behavior: [guarded, irritable, withdrawn, indifferent] Mood: [ depressed, euphoric, anxious, elated, irritable, angry, fearful] Affect: [lively, incongruent, labile, other] Orientation: [not time, person, place situation] Thought Content: [ delusions Risk Factors: [no suicidal (ideations, plan), and/or Homicidal (ideations, plan) ] Perception: [hallucinations (auditory] Thought Processes: [concrete, circumstantial, tangential Concentration/Attention Span: [impaired] [Per observation and interview with the patient] Recent Memory: impaired] [0 out of 3 in 3 minutes] Remote Memory: [ impaired] [past events, as related history] Intelligence: [below average] [based on history, based on vocabulary, syntax, grammar, and content] Judgement: [ poor] [per patient's behavior/history of present illness] Insight: [ poor] [understanding severity of illness/history of present illness] Admitting Diagnosis: [schizophrenia acute exacerbation with psychosis] Patient Strengths - Steady employment/financial stability: [disability] Housing stability: [x] Patient Limitations: [medication, non-compliance, pathological/unsupported environment, no interests, intellectual impairment, legal issues, lack of social supports] (1) Schizophrenia, chronic with acute exacerbation Current Visit: Yes Status: Acute Priority: High Code(s): F20.9 - SCHIZOPHRENIA, UNSPECIFIED SNOMED Code(s): 712354224 Plan: Plan of Care: [she was on demand order for coming to the hospital and she has no insight she'll have to return to court for mandatory treatment. She'll be admitted to [facility], medical workup, psychiatric workup in process, nursing evaluation, social work evaluation, and recreational therapy.] Awaiting court Estimated Length of Stay: [5-7 days] Initial Discharge Plan: [ [facility], referred to therapist] Prognosis: [guarded]
[2018-08-08] MEDS: metFORMIN 500 MG TAB PO SCH (16:13)
[2018-08-09] MEDS: amLODIPine 10 MG TAB PO SCH (07:39)
[2018-08-09] MEDS: OLANZapine 2.5 MG TAB PO SCH (07:39)
--- NOTE | 2018-08-09 11:55 | P.PN ---
Subjective Progress Note Date: 08/09/18 Principal diagnosis: mute schizoaffective disorder his is a 67-year-old female with a known medical history was brought in by police under petition. Patient apparently is been demonstrating a flight of ideas and very aggressive and agitated. She's been seen things that aren't there including snakes. Interval history today: This 67-year-old -[place] female still remains elusive and very disheveled bizarre as stated in the mental status examination below. She is not on participating in treatment. Home Medications Medication Instructions Recorded Confirmed Cephalexin [Keflex] 500 mg PO QID 08/03/18 08/03/18 OLANZapine [ZyPREXA] 2.5 mg PO DAILY 08/03/18 08/03/18 metFORMIN HCL ER [Glucophage Xr] 1,000 mg PO PC-SUPPER 08/03/18 08/03/18 Past Medical History Past Medical History: Unable to Obtain Additional Past Medical History / Comment(s): refusing to respond History of Any Multi-Drug Resistant Organisms: Unobtainable Past Surgical History: Unable to Obtain Past Psychological History: Unable to Obtain Smoking Status: Unknown if ever smoked Past Alcohol Use History: Unable to Obtain Past Drug Use History: Unable to Obtain Objective - Vital Signs Vital signs: Vital Signs Temp 97.7 F 08/09/18 06:47 Pulse 58 L 08/09/18 06:47 Resp 18 08/09/18 06:47 BP 152/83 08/09/18 06:47 Pulse Ox 97 08/03/18 15:32 - Labs CBC & Chem 7: 08/03/18 13:18 08/03/18 13:18 Assessment and Plan Assessment: Musculoskeletal Examination - Abnormal/Involuntary Movements: [none] Strength: [greater than antigravity (greater than/equal to 3/5) in all extremities:] Muscle Tone: [no impairment, ] Gait: [grossly normal, ] Station: [grossly normal] Mental Status Examination - General Appearance: [ disheveled, casual, bizarre, appears older than stated age ] Speech/Language: [slow, rapid, slurred, rambled, mumbling, hesitant, halting, monotone, expressive,, loud,] Attitude/Behavior: [guarded, irritable, withdrawn, indifferent] Mood: [ depressed, euphoric, anxious, elated, irritable, angry, fearful] Affect: [lively, incongruent, labile, other] Orientation: [not time, person, place situation] Thought Content: [ delusions Risk Factors: [no suicidal (ideations, plan), and/or Homicidal (ideations, plan) ] Perception: [hallucinations (auditory] Thought Processes: [concrete, circumstantial, tangential Concentration/Attention Span: [impaired] [Per observation and interview with the patient] Recent Memory: impaired] [0 out of 3 in 3 minutes] Remote Memory: [ impaired] [past events, as related history] Intelligence: [below average] [based on history, based on vocabulary, syntax, grammar, and content] Judgement: [ poor] [per patient's behavior/history of present illness] Insight: [ poor] [understanding severity of illness/history of present illness] Admitting Diagnosis: [schizophrenia acute exacerbation with psychosis] Patient Strengths - Steady employment/financial stability: [disability] Housing stability: [x] Patient Limitations: [medication, non-compliance, pathological/unsupported environment, no interests, intellectual impairment, legal issues, lack of social supports] (1) Schizophrenia, chronic with acute exacerbation Current Visit: Yes Status: Acute Priority: High Code(s): F20.9 - SCHIZOPHRENIA, UNSPECIFIED SNOMED Code(s): 760776396 Plan: Plan of Care: [she was on demand order for coming to the hospital and she has no insight she'll have to return to court for mandatory treatment. She'll be admitted to [facility], medical workup, psychiatric workup in process, nursing evaluation, social work evaluation, and recreational therapy.] Awaiting court Estimated Length of Stay: [5-7 days] Initial Discharge Plan: [ [facility], referred to therapist] Prognosis: [guarded] Time with Patient: Less than 30
[2018-08-09] MEDS: metFORMIN 500 MG TAB PO SCH (15:47)
[2018-08-10] MEDS: amLODIPine 10 MG TAB PO SCH (09:04)
[2018-08-10] MEDS: OLANZapine 2.5 MG TAB PO SCH (09:04)
--- NOTE | 2018-08-10 09:57 | P.PN ---
Subjective Progress Note Date: 08/10/18 Principal diagnosis: mute schizoaffective disorder his is a 67-year-old female with a known medical history was brought in by police under petition. Patient apparently is been demonstrating a flight of ideas and very aggressive and agitated. She's been seen things that aren't there including snakes. Interval history today: This 67-year-old -[place] female still remains elusive and very disheveled bizarre as stated in the mental status examination below. She is not participating in treatment. Home Medications Medication Instructions Recorded Confirmed Cephalexin [Keflex] 500 mg PO QID 08/03/18 08/03/18 OLANZapine [ZyPREXA] 2.5 mg PO DAILY 08/03/18 08/03/18 metFORMIN HCL ER [Glucophage Xr] 1,000 mg PO PC-SUPPER 08/03/18 08/03/18 Past Medical History Past Medical History: Unable to Obtain Additional Past Medical History / Comment(s): refusing to respond History of Any Multi-Drug Resistant Organisms: Unobtainable Past Surgical History: Unable to Obtain Past Psychological History: Unable to Obtain Smoking Status: Unknown if ever smoked Past Alcohol Use History: Unable to Obtain Past Drug Use History: Unable to Obtain Objective - Vital Signs Vital signs: Vital Signs Temp 98.2 F 08/10/18 06:23 Pulse 85 08/10/18 06:23 Resp 18 08/10/18 06:23 BP 157/87 08/10/18 06:23 Pulse Ox 97 08/03/18 15:32 - Labs CBC & Chem 7: 08/03/18 13:18 08/03/18 13:18 Assessment and Plan Assessment: Musculoskeletal Examination - Abnormal/Involuntary Movements: [none] Strength: [greater than antigravity (greater than/equal to 3/5) in all extremities:] Muscle Tone: [no impairment, ] Gait: [grossly normal, ] Station: [grossly normal] Mental Status Examination - General Appearance: [ disheveled, casual, bizarre, appears older than stated age ] Speech/Language: [slow, rapid, slurred, rambled, mumbling, hesitant, halting, monotone, expressive,, loud,] Attitude/Behavior: [guarded, irritable, withdrawn, indifferent] Mood: [ depressed, euphoric, anxious, elated, irritable, angry, fearful] Affect: [lively, incongruent, labile, other] Orientation: [not time, person, place situation] Thought Content: [ delusions Risk Factors: [no suicidal (ideations, plan), and/or Homicidal (ideations, plan) ] Perception: [hallucinations (auditory] Thought Processes: [concrete, circumstantial, tangential Concentration/Attention Span: [impaired] [Per observation and interview with the patient] Recent Memory: impaired] [0 out of 3 in 3 minutes] Remote Memory: [ impaired] [past events, as related history] Intelligence: [below average] [based on history, based on vocabulary, syntax, grammar, and content] Judgement: [ poor] [per patient's behavior/history of present illness] Insight: [ poor] [understanding severity of illness/history of present illness] Admitting Diagnosis: [schizophrenia acute exacerbation with psychosis] Patient Strengths - Steady employment/financial stability: [disability] Housing stability: [x] Patient Limitations: [medication, non-compliance, pathological/unsupported environment, no interests, intellectual impairment, legal issues, lack of social supports] (1) Schizophrenia, chronic with acute exacerbation Current Visit: Yes Status: Acute Priority: High Code(s): F20.9 - SCHIZOPHRENIA, UNSPECIFIED SNOMED Code(s): 784525702 Plan: Plan of Care: [she was on demand order for coming to the hospital and she has no insight she'll have to return to court for mandatory treatment. She'll be admitted to [facility], medical workup, psychiatric workup in process, nursing evaluation, social work evaluation, and recreational therapy.] Awaiting court and now court mandated Estimated Length of Stay: [5-7 days] Initial Discharge Plan: [ [facility], referred to therapist] Prognosis: [guarded] Prolixin 1.25 mg every 6 hours IM Time with Patient: Less than 30
[2018-08-10] MEDS: flUPHENAZine 2.5 MG/ML (MDV) 10 ML VIAL IM SCH ×2 (11:28→18:54)
[2018-08-10] MEDS: metFORMIN 500 MG TAB PO SCH (18:55)
[2018-08-11] MEDS: flUPHENAZine 2.5 MG/ML (MDV) 10 ML VIAL IM SCH ×3 (09:12→21:57)
[2018-08-11] MEDS: OLANZapine 2.5 MG TAB PO SCH (09:13)
[2018-08-11] MEDS: amLODIPine 10 MG TAB PO SCH (09:14)
--- NOTE | 2018-08-11 09:49 | P.PN ---
Subjective Progress Note Date: 08/11/18 Principal diagnosis: mute schizoaffective disorder his is a 67-year-old female with a known medical history was brought in by police under petition. Patient apparently is been demonstrating a flight of ideas and very aggressive and agitated. She's been seen things that aren't there including snakes. Interval history today: This 67-year-old -[place] female still remains elusive and very disheveled bizarre as stated in the mental status examination below. She is not participating in treatment. Home Medications Medication Instructions Recorded Confirmed Cephalexin [Keflex] 500 mg PO QID 08/03/18 08/03/18 OLANZapine [ZyPREXA] 2.5 mg PO DAILY 08/03/18 08/03/18 metFORMIN HCL ER [Glucophage Xr] 1,000 mg PO PC-SUPPER 08/03/18 08/03/18 Past Medical History Past Medical History: Unable to Obtain Additional Past Medical History / Comment(s): refusing to respond History of Any Multi-Drug Resistant Organisms: Unobtainable Past Surgical History: Unable to Obtain Past Psychological History: Unable to Obtain Smoking Status: Unknown if ever smoked Past Alcohol Use History: Unable to Obtain Past Drug Use History: Unable to Obtain Objective - Vital Signs Vital signs: Vital Signs Temp 98.0 F 08/11/18 06:38 Pulse 71 08/11/18 06:38 Resp 16 08/11/18 06:38 BP 119/60 08/11/18 06:38 Pulse Ox 97 08/03/18 15:32 - Labs CBC & Chem 7: 08/03/18 13:18 08/03/18 13:18 Assessment and Plan Assessment: Musculoskeletal Examination - Abnormal/Involuntary Movements: [none] Strength: [greater than antigravity (greater than/equal to 3/5) in all extremities:] Muscle Tone: [no impairment, ] Gait: [grossly normal, ] Station: [grossly normal] Mental Status Examination - General Appearance: [ disheveled, casual, bizarre, appears older than stated age ] Speech/Language: [slow, rapid, slurred, rambled, mumbling, hesitant, halting, monotone, expressive,, loud,] Attitude/Behavior: [guarded, irritable, withdrawn, indifferent] Mood: [ depressed, euphoric, anxious, elated, irritable, angry, fearful] Affect: [lively, incongruent, labile, other] Orientation: [not time, person, place situation] Thought Content: [ delusions Risk Factors: [no suicidal (ideations, plan), and/or Homicidal (ideations, plan) ] Perception: [hallucinations (auditory] Thought Processes: [concrete, circumstantial, tangential Concentration/Attention Span: [impaired] [Per observation and interview with the patient] Recent Memory: impaired] [0 out of 3 in 3 minutes] Remote Memory: [ impaired] [past events, as related history] Intelligence: [below average] [based on history, based on vocabulary, syntax, grammar, and content] Judgement: [ poor] [per patient's behavior/history of present illness] Insight: [ poor] [understanding severity of illness/history of present illness] Admitting Diagnosis: [schizophrenia acute exacerbation with psychosis] Patient Strengths - Steady employment/financial stability: [disability] Housing stability: [x] Patient Limitations: [medication, non-compliance, pathological/unsupported environment, no interests, intellectual impairment, legal issues, lack of social supports] (1) Schizophrenia, chronic with acute exacerbation Current Visit: Yes Status: Acute Priority: High Code(s): F20.9 - SCHIZOPHRENIA, UNSPECIFIED SNOMED Code(s): 856391408 Plan: Plan of Care: [she was on demand order for coming to the hospital and she has no insight she'll have to return to court for mandatory treatment. She'll be admitted to [facility], medical workup, psychiatric workup in process, nursing evaluation, social work evaluation, and recreational therapy.] Awaiting court and now court mandated Estimated Length of Stay: [10 days] Initial Discharge Plan: [ [facility], referred to therapist] Prognosis: [guarded] Prolixin 1.25 mg every 8am, 2pm, 8 pm IM
[2018-08-11] MEDS: metFORMIN 500 MG TAB PO SCH (17:31)
[2018-08-12] MEDS: amLODIPine 10 MG TAB PO SCH (09:32)
[2018-08-12] MEDS: OLANZapine 2.5 MG TAB PO SCH (09:32)
[2018-08-12] MEDS: flUPHENAZine 2.5 MG/ML (MDV) 10 ML VIAL IM SCH ×3 (09:35→22:40)
--- NOTE | 2018-08-12 15:42 | P.PN ---
Progress Note - Text Progress Note Date: 08/12/18 Interval history: Patient seen in [facility] today. She makes reference to being sore from receiving injections. She relates that she shouldn't be here. She states that she came here by the police. She makes reference to having received Geodon and Ativan. She does state that she is taking Zyprexa by mouth. Mental status exam: She is alert and cooperative. She denies any thoughts of harm to self or others. She denies any auditory or visual hallucinations. She makes reference to wanting to read her critical care journals that she had in the emergency room. She does not show any significant agitation. Plan: Patient will be maintained on current psychotropic medication regimen. Continue to monitor for any medication side effects and monitor her ongoing response to treatment.
[2018-08-12] MEDS: metFORMIN 500 MG TAB PO SCH (17:52)
[2018-08-13] MEDS: flUPHENAZine 2.5 MG/ML (MDV) 10 ML VIAL IM SCH ×3 (09:43→19:54)
[2018-08-13] MEDS: amLODIPine 10 MG TAB PO SCH (09:44)
[2018-08-13] MEDS: OLANZapine 2.5 MG TAB PO SCH (09:44)
--- NOTE | 2018-08-13 11:23 | P.PN ---
Progress Note - Text Progress Note Date: 08/13/18 Interval history: Patient is seen again in [facility] today. She was found in her room lying in bed. She is cooperative to come to the interview room. She makes reference to feeling sore today. She makes reference to not feeling like going to groups. She does relate that she sleeping and eating okay. She again inquires about her critical care journals. 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 Mental status exam: She is alert and cooperative with the interview. Her affect is restricted overall. She does not show any agitation. She denies any hallucinations. She denies any thoughts of harm to self or others. She describes her mood as "sore." Plan: We'll maintain current psychotropic medication regimen. Continue to monitor for any medication side effects, monitor her ongoing response to treatment.
[2018-08-13] MEDS: metFORMIN 500 MG TAB PO SCH (17:23)
[2018-08-14] MEDS: amLODIPine 10 MG TAB PO SCH (08:30)
[2018-08-14] MEDS: OLANZapine 2.5 MG TAB PO SCH (08:30)
[2018-08-14] MEDS ORDERED: fluPHENAZine DECANOATE 25 MG/ML 5ML MDV IM ONE (10:25)
--- NOTE | 2018-08-14 10:28 | P.PN ---
Subjective Progress Note Date: 08/14/18 Principal diagnosis: mute schizoaffective disorder his is a 67-year-old female with a known medical history was brought in by police under petition. Patient apparently is been demonstrating a flight of ideas and very aggressive and agitated. She's been seen things that aren't there including snakes. Interval history today: This 67-year-old -[place] female still remains elusive and very disheveled bizarre as stated in the mental status examination below. She is not participating in treatment. Home Medications Medication Instructions Recorded Confirmed Cephalexin [Keflex] 500 mg PO QID 08/03/18 08/03/18 OLANZapine [ZyPREXA] 2.5 mg PO DAILY 08/03/18 08/03/18 metFORMIN HCL ER [Glucophage Xr] 1,000 mg PO PC-SUPPER 08/03/18 08/03/18 Past Medical History Past Medical History: Unable to Obtain Additional Past Medical History / Comment(s): refusing to respond History of Any Multi-Drug Resistant Organisms: Unobtainable Past Surgical History: Unable to Obtain Past Psychological History: Unable to Obtain Smoking Status: Unknown if ever smoked Past Alcohol Use History: Unable to Obtain Past Drug Use History: Unable to Obtain Objective - Vital Signs Vital signs: Vital Signs Temp 97.9 F 08/14/18 06:50 Pulse 79 08/14/18 06:50 Resp 12 08/14/18 06:50 BP 140/87 08/14/18 06:50 Pulse Ox 97 08/03/18 15:32 - Labs CBC & Chem 7: 08/03/18 13:18 08/03/18 13:18 Assessment and Plan Assessment: Musculoskeletal Examination - Abnormal/Involuntary Movements: [none] Strength: [greater than antigravity (greater than/equal to 3/5) in all extremities:] Muscle Tone: [no impairment, ] Gait: [grossly normal, ] Station: [grossly normal] Mental Status Examination - General Appearance: [ disheveled, casual, bizarre, appears older than stated age ] Speech/Language: [slow, rapid, slurred, rambled, mumbling, hesitant, halting, monotone, expressive,, loud,] Attitude/Behavior: [guarded, irritable, withdrawn, indifferent] Mood: [ depressed, euphoric, anxious, elated, irritable, angry, fearful] Affect: [lively, incongruent, labile, other] Orientation: [not time, person, place situation] Thought Content: [ delusions Risk Factors: [no suicidal (ideations, plan), and/or Homicidal (ideations, plan) ] Perception: [hallucinations (auditory] Thought Processes: [concrete, circumstantial, tangential Concentration/Attention Span: [impaired] [Per observation and interview with the patient] Recent Memory: impaired] [0 out of 3 in 3 minutes] Remote Memory: [ impaired] [past events, as related history] Intelligence: [below average] [based on history, based on vocabulary, syntax, grammar, and content] Judgement: [ poor] [per patient's behavior/history of present illness] Insight: [ poor] [understanding severity of illness/history of present illness] Admitting Diagnosis: [schizophrenia acute exacerbation with psychosis] Patient Strengths - Steady employment/financial stability: [disability] Housing stability: [x] Patient Limitations: [medication, non-compliance, pathological/unsupported environment, no interests, intellectual impairment, legal issues, lack of social supports] (1) Schizophrenia, chronic with acute exacerbation Current Visit: Yes Status: Acute Priority: High Code(s): F20.9 - SCHIZOPHRENIA, UNSPECIFIED SNOMED Code(s): 925181128 Plan: Plan of Care: [she was on demand order for coming to the hospital and she has no insight she'll have to return to court for mandatory treatment. She'll be admitted to [facility], medical workup, psychiatric workup in process, nursing evaluation, social work evaluation, and recreational therapy.] Awaiting court and now court mandated Estimated Length of Stay: [10 days] Initial Discharge Plan: [ [facility], referred to therapist] Prognosis: [guarded] Prolixin 25 mg deconate and 4 mg prolixin at 21:00 Time with Patient: Less than 30
[2018-08-14] MEDS: flUPHENAZine 2.5 MG/ML (MDV) 10 ML VIAL IM SCH (10:52)
[2018-08-14] MEDS: metFORMIN 500 MG TAB PO SCH (17:09)
[2018-08-15] MEDS: amLODIPine 10 MG TAB PO SCH ×2 (08:36→08:38)
--- NOTE | 2018-08-15 10:23 | P.PN ---
Subjective Progress Note Date: 08/15/18 Principal diagnosis: mute schizoaffective disorder his is a 67-year-old female with a known medical history was brought in by police under petition. Patient apparently is been demonstrating a flight of ideas and very aggressive and agitated. She's been seen things that aren't there including snakes. Interval history today: This 67-year-old -[place] female still remains elusive and very disheveled bizarre as stated in the mental status examination below. She is not participating in treatment. Home Medications Medication Instructions Recorded Confirmed Cephalexin [Keflex] 500 mg PO QID 08/03/18 08/03/18 OLANZapine [ZyPREXA] 2.5 mg PO DAILY 08/03/18 08/03/18 metFORMIN HCL ER [Glucophage Xr] 1,000 mg PO PC-SUPPER 08/03/18 08/03/18 Past Medical History Past Medical History: Unable to Obtain Additional Past Medical History / Comment(s): refusing to respond History of Any Multi-Drug Resistant Organisms: Unobtainable Past Surgical History: Unable to Obtain Past Psychological History: Unable to Obtain Smoking Status: Unknown if ever smoked Past Alcohol Use History: Unable to Obtain Past Drug Use History: Unable to Obtain Objective - Vital Signs Vital signs: Vital Signs Temp 97.9 F 08/15/18 07:07 Pulse 74 08/15/18 07:07 Resp 16 08/15/18 07:07 BP 130/79 08/15/18 07:07 Pulse Ox 97 08/03/18 15:32 - Labs CBC & Chem 7: 08/03/18 13:18 08/03/18 13:18 Assessment and Plan Assessment: Musculoskeletal Examination - Abnormal/Involuntary Movements: [none] Strength: [greater than antigravity (greater than/equal to 3/5) in all extremities:] Muscle Tone: [no impairment, ] Gait: [grossly normal, ] Station: [grossly normal] Mental Status Examination - General Appearance: [ disheveled, casual, bizarre, appears older than stated age ] Speech/Language: [slow, rapid, slurred, rambled, mumbling, hesitant, halting, monotone, expressive,, loud,] Attitude/Behavior: [guarded, irritable, withdrawn, indifferent] Mood: [ depressed, euphoric, anxious, elated, irritable, angry, fearful] Affect: [lively, incongruent, labile, other] Orientation: [not time, person, place situation] Thought Content: [ delusions Risk Factors: [no suicidal (ideations, plan), and/or Homicidal (ideations, plan) ] Perception: [hallucinations (auditory] Thought Processes: [concrete, circumstantial, tangential Concentration/Attention Span: [impaired] [Per observation and interview with the patient] Recent Memory: impaired] [0 out of 3 in 3 minutes] Remote Memory: [ impaired] [past events, as related history] Intelligence: [below average] [based on history, based on vocabulary, syntax, grammar, and content] Judgement: [ poor] [per patient's behavior/history of present illness] Insight: [ poor] [understanding severity of illness/history of present illness] Admitting Diagnosis: [schizophrenia acute exacerbation with psychosis] Patient Strengths - Steady employment/financial stability: [disability] Housing stability: [x] Patient Limitations: [medication, non-compliance, pathological/unsupported environment, no interests, intellectual impairment, legal issues, lack of social supports] (1) Schizophrenia, chronic with acute exacerbation Current Visit: Yes Status: Acute Priority: High Code(s): F20.9 - SCHIZOPHRENIA, UNSPECIFIED SNOMED Code(s): 709774099 Plan: Plan of Care: [she was on demand order for coming to the hospital and she has no insight she'll have to return to court for mandatory treatment. She'll be admitted to [facility], medical workup, psychiatric workup in process, nursing evaluation, social work evaluation, and recreational therapy.] Awaiting court and now court mandated Estimated Length of Stay: [10 days] Initial Discharge Plan: [ [facility], referred to therapist] Prognosis: [guarded] Prolixin 25 mg deconate and 3 mg prolixin at 21:00 Time with Patient: Less than 30
[2018-08-15] MEDS: metFORMIN 500 MG TAB PO SCH (18:08)
[2018-08-16] MEDS: amLODIPine 10 MG TAB PO SCH (09:08)
[2018-08-16] MEDS ORDERED: OLANZapine ODT 5 MG TAB PO PRN (09:58)
--- NOTE | 2018-08-16 10:01 | P.PN ---
Subjective Progress Note Date: 08/16/18 Principal diagnosis: mute schizoaffective disorder his is a 67-year-old female with a known medical history was brought in by police under petition. Patient apparently is been demonstrating a flight of ideas and very aggressive and agitated. She's been seen things that aren't there including snakes. Interval history today: This 67-year-old -[place] female still remains elusive and very disheveled bizarre as stated in the mental status examination below. She is not participating in treatment. Home Medications Medication Instructions Recorded Confirmed Cephalexin [Keflex] 500 mg PO QID 08/03/18 08/03/18 OLANZapine [ZyPREXA] 2.5 mg PO DAILY 08/03/18 08/03/18 metFORMIN HCL ER [Glucophage Xr] 1,000 mg PO PC-SUPPER 08/03/18 08/03/18 Past Medical History Past Medical History: Unable to Obtain Additional Past Medical History / Comment(s): refusing to respond History of Any Multi-Drug Resistant Organisms: Unobtainable Past Surgical History: Unable to Obtain Past Psychological History: Unable to Obtain Smoking Status: Unknown if ever smoked Past Alcohol Use History: Unable to Obtain Past Drug Use History: Unable to Obtain Objective - Vital Signs Vital signs: Vital Signs Temp 97.6 F 08/16/18 06:37 Pulse 75 08/16/18 06:37 Resp 16 08/16/18 06:37 BP 147/78 08/16/18 06:37 Pulse Ox 97 08/03/18 15:32 - Labs CBC & Chem 7: 08/03/18 13:18 08/03/18 13:18 Assessment and Plan Assessment: Musculoskeletal Examination - Abnormal/Involuntary Movements: [none] Strength: [greater than antigravity (greater than/equal to 3/5) in all extremities:] Muscle Tone: [no impairment, ] Gait: [grossly normal, ] Station: [grossly normal] Mental Status Examination - General Appearance: [ disheveled, casual, bizarre, appears older than stated age ] Speech/Language: [slow, rapid, slurred, rambled, mumbling, hesitant, halting, monotone, expressive,, loud,] Attitude/Behavior: [guarded, irritable, withdrawn, indifferent] Mood: [ depressed, euphoric, anxious, elated, irritable, angry, fearful] Affect: [lively, incongruent, labile, other] Orientation: [not time, person, place situation] Thought Content: [ delusions Risk Factors: [no suicidal (ideations, plan), and/or Homicidal (ideations, plan) ] Perception: [hallucinations (auditory] Thought Processes: [concrete, circumstantial, tangential Concentration/Attention Span: [impaired] [Per observation and interview with the patient] Recent Memory: impaired] [0 out of 3 in 3 minutes] Remote Memory: [ impaired] [past events, as related history] Intelligence: [below average] [based on history, based on vocabulary, syntax, grammar, and content] Judgement: [ poor] [per patient's behavior/history of present illness] Insight: [ poor] [understanding severity of illness/history of present illness] Admitting Diagnosis: [schizophrenia acute exacerbation with psychosis] Patient Strengths - Steady employment/financial stability: [disability] Housing stability: [x] Patient Limitations: [medication, non-compliance, pathological/unsupported environment, no interests, intellectual impairment, legal issues, lack of social supports] (1) Schizophrenia, chronic with acute exacerbation Current Visit: Yes Status: Acute Priority: High Code(s): F20.9 - SCHIZOPHRENIA, UNSPECIFIED SNOMED Code(s): 191683508 Plan: Plan of Care: [she was on demand order for coming to the hospital and she has no insight she'll have to return to court for mandatory treatment. She'll be admitted to [facility], medical workup, psychiatric workup in process, nursing evaluation, social work evaluation, and recreational therapy.] Awaiting court and now court mandated Estimated Length of Stay: [10 days] Initial Discharge Plan: [ [facility] [address], referred to therapist] Prognosis: [guarded] Prolixin 25 mg deconate and zyprexa 5 mg po qd and will use Zydis for break thru Time with Patient: Less than 30
[2018-08-16] MEDS: metFORMIN 500 MG TAB PO SCH (18:11)
[2018-08-16] MEDS: OLANZapine 5 MG TAB PO SCH (20:29)
[2018-08-17] MEDS: metFORMIN 500 MG TAB PO SCH (08:18)
[2018-08-17] MEDS: amLODIPine 10 MG TAB PO SCH (08:18)
[2018-08-17] MEDS: OLANZapine 5 MG TAB PO SCH (20:54)
[2018-08-18] MEDS: amLODIPine 10 MG TAB PO SCH (08:17)
--- NOTE | 2018-08-18 09:32 | P.PN ---
Subjective Progress Note Date: 08/17/18 Principal diagnosis: mute schizoaffective disorder his is a 67-year-old female with a known medical history was brought in by police under petition. Patient apparently is been demonstrating a flight of ideas and very aggressive and agitated. She's been seen things that aren't there including snakes. Interval history today: This 67-year-old -[place] female still remains elusive and very disheveled bizarre as stated in the mental status examination below. She is not participating in treatment. Home Medications Medication Instructions Recorded Confirmed Cephalexin [Keflex] 500 mg PO QID 08/03/18 08/03/18 OLANZapine [ZyPREXA] 2.5 mg PO DAILY 08/03/18 08/03/18 metFORMIN HCL ER [Glucophage Xr] 1,000 mg PO PC-SUPPER 08/03/18 08/03/18 Past Medical History Past Medical History: Unable to Obtain Additional Past Medical History / Comment(s): refusing to respond History of Any Multi-Drug Resistant Organisms: Unobtainable Past Surgical History: Unable to Obtain Past Psychological History: Unable to Obtain Smoking Status: Unknown if ever smoked Past Alcohol Use History: Unable to Obtain Past Drug Use History: Unable to Obtain Objective - Vital Signs Vital signs: Vital Signs Temp 98.1 F 08/18/18 04:24 Pulse 58 L 08/18/18 04:24 Resp 14 08/18/18 04:24 BP 162/79 08/18/18 04:24 Pulse Ox 97 08/03/18 15:32 Intake & Output 08/17/18 08/18/18 08/18/18 18:59 06:59 18:59 Weight 71.9 kg - Labs CBC & Chem 7: 08/03/18 13:18 08/03/18 13:18 Assessment and Plan Assessment: Musculoskeletal Examination - Abnormal/Involuntary Movements: [none] Strength: [greater than antigravity (greater than/equal to 3/5) in all extremities:] Muscle Tone: [no impairment, ] Gait: [grossly normal, ] Station: [grossly normal] Mental Status Examination - General Appearance: [ disheveled, casual, bizarre, appears older than stated age ] Speech/Language: [slow, rapid, slurred, rambled, mumbling, hesitant, halting, monotone, expressive,, loud,] Attitude/Behavior: [guarded, irritable, withdrawn, indifferent] Mood: [ depressed, euphoric, anxious, elated, irritable, angry, fearful] Affect: [lively, incongruent, labile, other] Orientation: [not time, person, place situation] Thought Content: [ delusions Risk Factors: [no suicidal (ideations, plan), and/or Homicidal (ideations, plan) ] Perception: [hallucinations (auditory] Thought Processes: [concrete, circumstantial, tangential Concentration/Attention Span: [impaired] [Per observation and interview with the patient] Recent Memory: impaired] [0 out of 3 in 3 minutes] Remote Memory: [ impaired] [past events, as related history] Intelligence: [below average] [based on history, based on vocabulary, syntax, grammar, and content] Judgement: [ poor] [per patient's behavior/history of present illness] Insight: [ poor] [understanding severity of illness/history of present illness] Admitting Diagnosis: [schizophrenia acute exacerbation with psychosis] Patient Strengths - Steady employment/financial stability: [disability] Housing stability: [x] Patient Limitations: [medication, non-compliance, pathological/unsupported environment, no interests, intellectual impairment, legal issues, lack of social supports] (1) Schizophrenia, chronic with acute exacerbation Current Visit: Yes Status: Acute Priority: High Code(s): F20.9 - SCHIZOPHRENIA, UNSPECIFIED SNOMED Code(s): 034279040 Plan: Plan of Care: [she was on demand order for coming to the hospital and she has no insight she'll have to return to court for mandatory treatment. She'll be admitted to [facility] environment, medical workup, psychiatric workup in process, nursing evaluation, social work evaluation, and recreational therapy.] Awaiting court and now court mandated Estimated Length of Stay: [10 days] Initial Discharge Plan: [ [facility], referred to therapist] Prognosis: [guarded] Prolixin 25 mg deconate and zyprexa 5 mg po qd and will use Zydis for break thru Time with Patient: Less than 30
--- NOTE | 2018-08-18 09:34 | P.PN ---
Subjective Progress Note Date: 08/18/18 Principal diagnosis: mute schizoaffective disorder his is a 67-year-old female with a known medical history was brought in by police under petition. Patient apparently is been demonstrating a flight of ideas and very aggressive and agitated. She's been seen things that aren't there including snakes. Interval history today: This 67-year-old -Maltese female still remains elusive and very disheveled bizarre as stated in the mental status examination below. She is not participating in treatment. Home Medications Medication Instructions Recorded Confirmed Cephalexin [Keflex] 500 mg PO QID 08/03/18 08/03/18 OLANZapine [ZyPREXA] 2.5 mg PO DAILY 08/03/18 08/03/18 metFORMIN HCL ER [Glucophage Xr] 1,000 mg PO PC-SUPPER 08/03/18 08/03/18 Past Medical History Past Medical History: Unable to Obtain Additional Past Medical History / Comment(s): refusing to respond History of Any Multi-Drug Resistant Organisms: Unobtainable Past Surgical History: Unable to Obtain Past Psychological History: Unable to Obtain Smoking Status: Unknown if ever smoked Past Alcohol Use History: Unable to Obtain Past Drug Use History: Unable to Obtain Objective - Vital Signs Vital signs: Vital Signs Temp 98.1 F 08/18/18 04:24 Pulse 58 L 08/18/18 04:24 Resp 14 08/18/18 04:24 BP 162/79 08/18/18 04:24 Pulse Ox 97 08/03/18 15:32 Intake & Output 08/17/18 08/18/18 08/18/18 18:59 06:59 18:59 Weight 71.9 kg - Labs CBC & Chem 7: 08/03/18 13:18 08/03/18 13:18 Assessment and Plan Assessment: Musculoskeletal Examination - Abnormal/Involuntary Movements: [none] Strength: [greater than antigravity (greater than/equal to 3/5) in all extremities:] Muscle Tone: [no impairment, ] Gait: [grossly normal, ] Station: [grossly normal] Mental Status Examination - General Appearance: [ disheveled, casual, bizarre, appears older than stated age ] Speech/Language: [slow, rapid, slurred, rambled, mumbling, hesitant, halting, monotone, expressive,, loud,] Attitude/Behavior: [guarded, irritable, withdrawn, indifferent] Mood: [ depressed, euphoric, anxious, elated, irritable, angry, fearful] Affect: [lively, incongruent, labile, other] Orientation: [not time, person, place situation] Thought Content: [ delusions Risk Factors: [no suicidal (ideations, plan), and/or Homicidal (ideations, plan) ] Perception: [hallucinations (auditory] Thought Processes: [concrete, circumstantial, tangential Concentration/Attention Span: [impaired] [Per observation and interview with the patient] Recent Memory: impaired] [0 out of 3 in 3 minutes] Remote Memory: [ impaired] [past events, as related history] Intelligence: [below average] [based on history, based on vocabulary, syntax, grammar, and content] Judgement: [ poor] [per patient's behavior/history of present illness] Insight: [ poor] [understanding severity of illness/history of present illness] Admitting Diagnosis: [schizophrenia acute exacerbation with psychosis] Patient Strengths - Steady employment/financial stability: [disability] Housing stability: [x] Patient Limitations: [medication, non-compliance, pathological/unsupported environment, no interests, intellectual impairment, legal issues, lack of social supports] (1) Schizophrenia, chronic with acute exacerbation Current Visit: Yes Status: Acute Priority: High Code(s): F20.9 - SCHIZOPHRENIA, UNSPECIFIED SNOMED Code(s): 468642013 Plan: Plan of Care: [she was on demand order for coming to the hospital and she has no insight she'll have to return to court for mandatory treatment. She'll be admitted to [facility] environment, medical workup, psychiatric workup in process, nursing evaluation, social work evaluation, and recreational therapy.] Awaiting court and now court mandated Estimated Length of Stay: [10 days] Initial Discharge Plan: [ [facility], referred to therapist] Prognosis: [guarded] Prolixin 25 mg deconate and zyprexa 7.5 mg po qd and will use Zydis for break thru and add lamictal 25 mg po qhs Time with Patient: Less than 30
[2018-08-18 17:59] LABS: Glucose,Whole Blood 108 mg/dL (75-99)
[2018-08-18] MEDS: metFORMIN 500 MG TAB PO SCH (18:09)
[2018-08-18] MEDS: OLANZapine 2.5 MG TAB PO SCH (19:09)
[2018-08-18] MEDS: lamoTRIgine 25 MG TAB PO SCH (19:11)
[2018-08-19 07:33] LABS: Glucose,Whole Blood 113 mg/dL (75-99)
[2018-08-19] MEDS: amLODIPine 10 MG TAB PO SCH (07:49)
--- NOTE | 2018-08-19 09:07 | P.PN ---
Progress Note - Text Interval history: The patient is found in the back hallway she follows me to an interview room to speak. She states that she has been admitted here and appropriately. She states that she is sick of the police coming to her home and taking her to the hospital. She indicates that she is on too high of a dose of Zyprexa. She reports that she slept last night and is eating appropriately. Staff reported she slept over 6 hours. Mental status exam: The patient is an -Spanish female appearing her stated age. She is dressed in her own clothing and is wearing a red white and blue scarf on her head. She is seated in her chair during our interaction she is mildly agitated. She becomes more animated and irritable appearing in describing her frustration with being in the hospital. She states that she is high-class and she is at or higher than the level of the doctors. She reports that she shops online and buys expensive clothing. She demands to have her journals back. She is reporting no suicidal or homicidal ideation intent or plan. She clearly describes paranoid and persecutory type delusions. She is reporting no auditory or visual hallucinations. She is oriented to person place and date. Plan: The patient will continue on her current psychotropic medication. Vital signs reviewed. She is encouraged to participate in the milieu. We will continue monitoring her for safety.
[2018-08-19] MEDS: metFORMIN 500 MG TAB PO SCH (16:11)
[2018-08-19] MEDS: OLANZapine 2.5 MG TAB PO SCH (18:41)
[2018-08-19] MEDS: lamoTRIgine 25 MG TAB PO SCH (18:41)
[2018-08-20 06:21] LABS: Glucose,Whole Blood 88 mg/dL (75-99)
[2018-08-20] MEDS: amLODIPine 10 MG TAB PO SCH (09:10)
--- NOTE | 2018-08-20 11:45 | P.PN ---
Progress Note - Text Interval history: The patient is found in the hallway she follows me to an interview room. She indicates continued frustration that she is here in the hospital. She again re-explained how she is taken from her home to hospital such as this against her will. She indicates she slept last night appetite is stable. It appears she has complied with the Zyprexa but refused the Lamictal. We discussed this further and she states she does not require Lamictal. Mental status exam: The patient is a -[place]oc[place] female appearing her stated age she is dressed in the same: Is yesterday. Eye contact is appropriate. She is pleasant and cooperative during our interaction. She has spontaneous speech she can become circumstantial at times. She is reporting no suicidal or homicidal ideation. She spontaneously describes her mind prescribed 20 thoughts and at times grandiose thinking. She demonstrates no verbal or physical aggressiveness. Affect remains constricted. Insight and judgment impaired. She is oriented to person place month and year. She is endorsing no auditory or visual hallucinations. Plan: The patient will continue on her current medication we will monitor her compliance with the Lamictal further. Vital signs reviewed her blood pressure has been variable she is describing no physical symptoms at this time and she is ambulating without difficulty. We will monitor her for safety.
[2018-08-20] MEDS: metFORMIN 500 MG TAB PO SCH (16:52)
[2018-08-20] MEDS: OLANZapine 2.5 MG TAB PO SCH (17:32)
[2018-08-20] MEDS: lamoTRIgine 25 MG TAB PO SCH (17:32)
[2018-08-21 05:26] LABS: Glucose,Whole Blood 120 mg/dL (75-99)
[2018-08-21] MEDS: amLODIPine 10 MG TAB PO SCH (09:08)
--- NOTE | 2018-08-21 12:49 | P.PN ---
Subjective Progress Note Date: 08/21/18 Principal diagnosis: mute schizoaffective disorder his is a 67-year-old female with a known medical history was brought in by police under petition. Patient apparently is been demonstrating a flight of ideas and very aggressive and agitated. She's been seen things that aren't there including snakes. Interval history today: This 67-year-old -[place]ian female still remains elusive and bizarre as stated in the mental status examination below. She is now participating in treatment. Home Medications Medication Instructions Recorded Confirmed Cephalexin [Keflex] 500 mg PO QID 08/03/18 08/03/18 OLANZapine [ZyPREXA] 2.5 mg PO DAILY 08/03/18 08/03/18 metFORMIN HCL ER [Glucophage Xr] 1,000 mg PO PC-SUPPER 08/03/18 08/03/18 Past Medical History Past Medical History: Unable to Obtain Additional Past Medical History / Comment(s): refusing to respond History of Any Multi-Drug Resistant Organisms: Unobtainable Past Surgical History: Unable to Obtain Past Psychological History: Unable to Obtain Smoking Status: Unknown if ever smoked Past Alcohol Use History: Unable to Obtain Past Drug Use History: Unable to Obtain Objective - Vital Signs Vital signs: Vital Signs Temp 97.6 F 08/20/18 02:52 Pulse 61 08/20/18 02:52 Resp 14 08/20/18 02:52 BP 179/92 08/20/18 02:52 Pulse Ox 97 08/03/18 15:32 Intake & Output 08/20/18 08/21/18 08/21/18 18:59 06:59 18:59 Intake Total 480 Balance 480 Weight 74.868 kg Intake: Oral 480 - Labs CBC & Chem 7: 08/03/18 13:18 08/03/18 13:18 Labs: Abnormal Lab Results - Last 24 Hours (Table) 08/21/18 Range/Units 05:22 POC Glucose (mg/dL) 120 H (75-99) mg/dL Assessment and Plan Assessment: Musculoskeletal Examination - Abnormal/Involuntary Movements: [none] Strength: [greater than antigravity (greater than/equal to 3/5) in all extremities:] Muscle Tone: [no impairment, ] Gait: [grossly normal, ] Station: [grossly normal] Mental Status Examination - General Appearance: [ casual, bizarre, appears older than stated age] Speech/Language: [slow, rapid,hesitant, halting] Attitude/Behavior: [guarded, irritable, withdrawn, indifferent] Mood: [ depressed, euphoric, anxious, elated, irritable, angry, fearful] Affect: [lively, incongruent, labile] Orientation: [ time, person, place situation] Thought Content: [ delusions Risk Factors: [not suicidal (ideations, plan), and/or Homicidal (ideations, plan )] Perception: [hallucinations (auditory] denies Thought Processes: [concrete, circumstantial, tangential Concentration/Attention Span: [impaired] [Per observation and interview with the patient] Recent Memory: impaired] [1 out of 3 in 3 minutes] Remote Memory: [ impaired] [past events, as related history] Intelligence: [below average] [based on history, based on vocabulary, syntax, grammar, and content] Judgement: [ fair] [per patient's behavior/history of present illness] Insight: [ fair] [understanding severity of illness/history of present illness] Admitting Diagnosis: [schizophrenia acute exacerbation with psychosis] Patient Strengths - Steady employment/financial stability: [disability] Housing stability: [x] Patient Limitations: [medication, non-compliance, pathological/unsupported environment, no interests, intellectual impairment, legal issues, lack of social supports] (1) Schizophrenia, chronic with acute exacerbation Current Visit: Yes Status: Acute Priority: High Code(s): F20.9 - SCHIZOPHRENIA, UNSPECIFIED SNOMED Code(s): 979517189 Plan: Plan of Care: [she was on demand order for coming to the hospital and she has no insight she'll have to return to court for mandatory treatment. She'll be admitted to [facility] environment, medical workup, psychiatric workup in process, nursing evaluation, social work evaluation, and recreational therapy.] Awaiting court and now court mandated Estimated Length of Stay: [10 days] Initial Discharge Plan: [ [facility], referred to therapist] Prognosis: [guarded] Prolixin 25 mg deconate and zyprexa 10 mg po qd and will use Zydis for break thru and add lamictal 50 mg po qhs Time with Patient: Less than 30
[2018-08-21] MEDS: metFORMIN 500 MG TAB PO SCH (19:48)
[2018-08-21] MEDS: lamoTRIgine 25 MG TAB PO SCH (20:21)
[2018-08-21] MEDS ORDERED: OLANZapine 10 MG TAB PO SCH (21:00)
[2018-08-22] MEDS: amLODIPine 10 MG TAB PO SCH (08:48)
--- NOTE | 2018-08-22 09:57 | P.PN ---
Subjective Progress Note Date: 08/22/18 Principal diagnosis: mute schizoaffective disorder his is a 67-year-old female with a known medical history was brought in by police under petition. Patient apparently is been demonstrating a flight of ideas and very aggressive and agitated. She's been seen things that aren't there including snakes. Interval history today: This 67-year-old -Burmese female still remains elusive and bizarre as stated in the mental status examination below. She is now participating in treatment. Home Medications Medication Instructions Recorded Confirmed Cephalexin [Keflex] 500 mg PO QID 08/03/18 08/03/18 OLANZapine [ZyPREXA] 2.5 mg PO DAILY 08/03/18 08/03/18 metFORMIN HCL ER [Glucophage Xr] 1,000 mg PO PC-SUPPER 08/03/18 08/03/18 Past Medical History Past Medical History: Unable to Obtain Additional Past Medical History / Comment(s): refusing to respond History of Any Multi-Drug Resistant Organisms: Unobtainable Past Surgical History: Unable to Obtain Past Psychological History: Unable to Obtain Smoking Status: Unknown if ever smoked Past Alcohol Use History: Unable to Obtain Past Drug Use History: Unable to Obtain Objective - Vital Signs Vital signs: Vital Signs Temp 98.4 F 08/22/18 06:48 Pulse 67 08/22/18 06:48 Resp 18 08/22/18 06:48 BP 191/88 08/22/18 06:48 Pulse Ox 97 08/03/18 15:32 - Labs CBC & Chem 7: 08/03/18 13:18 08/03/18 13:18 Assessment and Plan Assessment: Musculoskeletal Examination - Abnormal/Involuntary Movements: [none] Strength: [greater than antigravity (greater than/equal to 3/5) in all extremities:] Muscle Tone: [no impairment, ] Gait: [grossly normal, ] Station: [grossly normal] Mental Status Examination - General Appearance: [ casual, bizarre, appears older than stated age] Speech/Language: [slow, rapid,hesitant, halting] Attitude/Behavior: [guarded, irritable, withdrawn, indifferent] Mood: [ depressed, euphoric, anxious, elated, irritable, angry, fearful] Affect: [lively, incongruent, labile] Orientation: [ time, person, place situation] Thought Content: [ delusions Risk Factors: [not suicidal (ideations, plan), and/or Homicidal (ideations, plan )] Perception: [hallucinations (auditory] denies Thought Processes: [concrete, circumstantial, tangential Concentration/Attention Span: [impaired] [Per observation and interview with the patient] Recent Memory: impaired] [1 out of 3 in 3 minutes] Remote Memory: [ impaired] [past events, as related history] Intelligence: [below average] [based on history, based on vocabulary, syntax, grammar, and content] Judgement: [ fair] [per patient's behavior/history of present illness] Insight: [ fair] [understanding severity of illness/history of present illness] Admitting Diagnosis: [schizophrenia acute exacerbation with psychosis] Patient Strengths - Steady employment/financial stability: [disability] Housing stability: [x] Patient Limitations: [medication, non-compliance, pathological/unsupported environment, no interests, intellectual impairment, legal issues, lack of social supports] (1) Schizophrenia, chronic with acute exacerbation Current Visit: Yes Status: Acute Priority: High Code(s): F20.9 - SCHIZOPHRENIA, UNSPECIFIED SNOMED Code(s): 064557348 Plan: Plan of Care: [she was on demand order for coming to the hospital and she has no insight she'll have to return to court for mandatory treatment. She'll be admitted to [facility] environment, medical workup, psychiatric workup in process, nursing evaluation, social work evaluation, and recreational therapy.] court and now court mandated Estimated Length of Stay: [10 days] Initial Discharge Plan: [ [facility], referred to therapist] Prognosis: [guarded] Prolixin 25 mg deconate and zyprexa 15 mg po qd and will use Zydis for break thru and add lamictal 50 mg po qhs=patient refuses Time with Patient: Less than 30
[2018-08-22] MEDS: metFORMIN 500 MG TAB PO SCH (17:25)
[2018-08-22] MEDS: lamoTRIgine 25 MG TAB PO SCH (20:10)
[2018-08-22] MEDS ORDERED: OLANZapine 5 MG TAB PO SCH (21:00)
[2018-08-23] MEDS: amLODIPine 10 MG TAB PO SCH (07:42)
--- NOTE | 2018-08-23 11:39 | P.PN ---
Subjective Progress Note Date: 08/23/18 Principal diagnosis: mute schizoaffective disorder his is a 67-year-old female with a known medical history was brought in by police under petition. Patient apparently is been demonstrating a flight of ideas and very aggressive and agitated. She's been seen things that aren't there including snakes. Interval history today: This 67-year-old -Czech female still remains elusive and bizarre as stated in the mental status examination below. She is now participating in treatment. Home Medications Medication Instructions Recorded Confirmed Cephalexin [Keflex] 500 mg PO QID 08/03/18 08/03/18 OLANZapine [ZyPREXA] 2.5 mg PO DAILY 08/03/18 08/03/18 metFORMIN HCL ER [Glucophage Xr] 1,000 mg PO PC-SUPPER 08/03/18 08/03/18 Objective - Vital Signs Vital signs: Vital Signs Temp 98 F 08/23/18 06:07 Pulse 60 08/23/18 06:07 Resp 18 08/23/18 06:07 BP 158/75 08/23/18 06:07 Pulse Ox 97 08/03/18 15:32 - Labs CBC & Chem 7: 08/03/18 13:18 08/03/18 13:18 Assessment and Plan Assessment: Musculoskeletal Examination - Abnormal/Involuntary Movements: [none] Strength: [greater than antigravity (greater than/equal to 3/5) in all extremities:] Muscle Tone: [no impairment, ] Gait: [grossly normal, ] Station: [grossly normal] Mental Status Examination - General Appearance: [ casual, bizarre, appears older than stated age] Speech/Language: [slow, rapid,hesitant, halting] Attitude/Behavior: [guarded, irritable, withdrawn, indifferent] Mood: [ depressed, euphoric, anxious, elated, irritable, angry, fearful] Affect: [lively, incongruent, labile] Orientation: [ time, person, place situation] Thought Content: [ delusions Risk Factors: [not suicidal (ideations, plan), and/or Homicidal (ideations, plan )] Perception: [hallucinations (auditory] denies Thought Processes: [concrete, circumstantial, tangential Concentration/Attention Span: [impaired] [Per observation and interview with the patient] Recent Memory: impaired] [1 out of 3 in 3 minutes] Remote Memory: [ impaired] [past events, as related history] Intelligence: [below average] [based on history, based on vocabulary, syntax, grammar, and content] Judgement: [ fair] [per patient's behavior/history of present illness] Insight: [ fair] [understanding severity of illness/history of present illness] Admitting Diagnosis: [schizophrenia acute exacerbation with psychosis] Patient Strengths - Steady employment/financial stability: [disability] Housing stability: [x] Patient Limitations: [medication, non-compliance, pathological/unsupported environment, no interests, intellectual impairment, legal issues, lack of social supports] (1) Schizophrenia, chronic with acute exacerbation Current Visit: Yes Status: Acute Priority: High Code(s): F20.9 - SCHIZOPHRENIA, UNSPECIFIED SNOMED Code(s): 819960792 Plan: Plan of Care: [she was on demand order for coming to the hospital and she has no insight she'll have to return to court for mandatory treatment. She'll be admitted to [facility] environment, medical workup, psychiatric workup in process, nursing evaluation, social work evaluation, and recreational therapy.] court and now court mandated Estimated Length of Stay: [10 days] Initial Discharge Plan: [ [facility], referred to therapist] Prognosis: [guarded] zyprexa 20 mg po qd and will use Zydis for break thru and add lamictal 50 mg po qhs=patient refuses Time with Patient: Less than 30
[2018-08-23] MEDS: metFORMIN 500 MG TAB PO SCH (15:36)
[2018-08-23] MEDS: lamoTRIgine 25 MG TAB PO SCH (20:12)
[2018-08-24] MEDS: amLODIPine 10 MG TAB PO SCH (08:58)
[2018-08-24] MEDS ORDERED: OLANZapine 10 MG TAB PO SCH (09:00)
--- NOTE | 2018-08-24 09:49 | P.PN ---
Subjective Progress Note Date: 08/24/18 Principal diagnosis: mute schizoaffective disorder his is a 67-year-old female with a known medical history was brought in by police under petition. Patient apparently is been demonstrating a flight of ideas and very aggressive and agitated. She's been seen things that aren't there including snakes. Interval history today: This 67-year-old -[place]an female still remains elusive and bizarre as stated in the mental status examination below. She is now participating in treatment. Home Medications Medication Instructions Recorded Confirmed Cephalexin [Keflex] 500 mg PO QID 08/03/18 08/03/18 OLANZapine [ZyPREXA] 2.5 mg PO DAILY 08/03/18 08/03/18 metFORMIN HCL ER [Glucophage Xr] 1,000 mg PO PC-SUPPER 08/03/18 08/03/18 Objective - Vital Signs Vital signs: Vital Signs Temp 97.9 F 08/24/18 06:23 Pulse 64 08/24/18 06:23 Resp 18 08/24/18 06:23 BP 132/70 08/24/18 06:23 Pulse Ox 97 08/03/18 15:32 - Labs CBC & Chem 7: 08/03/18 13:18 08/03/18 13:18 Assessment and Plan Assessment: Musculoskeletal Examination - Abnormal/Involuntary Movements: [none] Strength: [greater than antigravity (greater than/equal to 3/5) in all extremities:] Muscle Tone: [no impairment, ] Gait: [grossly normal, ] Station: [grossly normal] Mental Status Examination - her mental status examination still remains bizarre and disorganized thought process was unable to comprehend her mental illness nor any insight in how to get better General Appearance: [ casual, bizarre, appears older than stated age] Speech/Language: [slow, rapid,hesitant, halting] Attitude/Behavior: [guarded, irritable, withdrawn, indifferent] Mood: [ depressed, euphoric, anxious, elated, irritable, angry, fearful] Affect: [lively, incongruent, labile] Orientation: [ time, person, place situation] Thought Content: [ delusions Risk Factors: [not suicidal (ideations, plan), and/or Homicidal (ideations, plan )] Perception: [hallucinations (auditory] denies Thought Processes: [concrete, circumstantial, tangential Concentration/Attention Span: [impaired] [Per observation and interview with the patient] Recent Memory: impaired] [1 out of 3 in 3 minutes] Remote Memory: [ impaired] [past events, as related history] Intelligence: [below average] [based on history, based on vocabulary, syntax, grammar, and content] Judgement: [ fair] [per patient's behavior/history of present illness] Insight: [ fair] [understanding severity of illness/history of present illness] Admitting Diagnosis: [schizophrenia acute exacerbation with psychosis] Patient Strengths - Steady employment/financial stability: [disability] Housing stability: [x] Patient Limitations: [medication, non-compliance, pathological/unsupported environment, no interests, intellectual impairment, legal issues, lack of social supports] (1) Schizophrenia, chronic with acute exacerbation Current Visit: Yes Status: Acute Priority: High Code(s): F20.9 - SCHIZOPHRENIA, UNSPECIFIED SNOMED Code(s): 286206878 Plan: Plan of Care: [she was on demand order for coming to the hospital and she has no insight she'll have to return to court for mandatory treatment. She'll be admitted to [facility], medical workup, psychiatric workup in process, nursing evaluation, social work evaluation, and recreational therapy.] court and now court mandated Estimated Length of Stay: [10 days] Initial Discharge Plan: [ [facility], referred to therapist] Prognosis: [guarded] She is not responding to Zyprexa and will start Haldol Decanoate 50 mg with eventually will add lamictal 50 mg po qhs=patient refuses. This is a very difficult patient since she is not engaged in her medical psychiatric treatment. Time with Patient: Less than 30
[2018-08-24] MEDS ORDERED: HALOPERIDOL DECANOATE 50 MG/ML 1 ML VIAL IM SCH (10:00)
[2018-08-24] MEDS: metFORMIN 500 MG TAB PO SCH (18:43)
[2018-08-24] MEDS: lamoTRIgine 25 MG TAB PO SCH (20:12)
--- NOTE | 2018-08-25 10:16 | P.PN ---
Subjective Progress Note Date: 08/25/18 Principal diagnosis: mute schizoaffective disorder his is a 67-year-old female with a known medical history was brought in by police under petition. Patient apparently is been demonstrating a flight of ideas and very aggressive and agitated. She's been seen things that aren't there including snakes. Interval history today: This 67-year-old -Congolese female still remains elusive and bizarre as stated in the mental status examination below. She is now participating in treatment. Home Medications Medication Instructions Recorded Confirmed Cephalexin [Keflex] 500 mg PO QID 08/03/18 08/03/18 OLANZapine [ZyPREXA] 2.5 mg PO DAILY 08/03/18 08/03/18 metFORMIN HCL ER [Glucophage Xr] 1,000 mg PO PC-SUPPER 08/03/18 08/03/18 Objective - Vital Signs Vital signs: Vital Signs Temp 98.7 F 08/25/18 00:40 Pulse 80 08/25/18 00:40 Resp 20 08/25/18 00:40 BP 174/88 08/25/18 00:40 Pulse Ox 97 08/03/18 15:32 - Labs CBC & Chem 7: 08/03/18 13:18 08/03/18 13:18 Assessment and Plan Assessment: Musculoskeletal Examination - Abnormal/Involuntary Movements: [none] Strength: [greater than antigravity (greater than/equal to 3/5) in all extremities:] Muscle Tone: [no impairment, ] Gait: [grossly normal, ] Station: [grossly normal] Mental Status Examination - her mental status examination still remains bizarre and disorganized thought process was unable to comprehend her mental illness nor any insight in how to get better General Appearance: [ casual, bizarre, appears older than stated age] Speech/Language: [slow, rapid,hesitant, halting] Attitude/Behavior: [guarded, irritable, withdrawn, indifferent] Mood: [ depressed, euphoric, anxious, elated, irritable, angry, fearful] Affect: [lively, incongruent, labile] Orientation: [ time, person, place situation] Thought Content: [ delusions Risk Factors: [not suicidal (ideations, plan), and/or Homicidal (ideations, plan )] Perception: [hallucinations (auditory] denies Thought Processes: [concrete, circumstantial, tangential Concentration/Attention Span: [impaired] [Per observation and interview with the patient] Recent Memory: impaired] [1 out of 3 in 3 minutes] Remote Memory: [ impaired] [past events, as related history] Intelligence: [below average] [based on history, based on vocabulary, syntax, grammar, and content] Judgement: [ fair] [per patient's behavior/history of present illness] Insight: [ fair] [understanding severity of illness/history of present illness] Admitting Diagnosis: [schizophrenia acute exacerbation with psychosis] Patient Strengths - Steady employment/financial stability: [disability] Housing stability: [x] Patient Limitations: [medication, non-compliance, pathological/unsupported environment, no interests, intellectual impairment, legal issues, lack of social supports] (1) Schizophrenia, chronic with acute exacerbation Current Visit: Yes Status: Acute Priority: High Code(s): F20.9 - SCHIZOPHRENIA, UNSPECIFIED SNOMED Code(s): 718517886 Plan: Plan of Care: [she was on demand order for coming to the hospital and she has no insight she'll have to return to court for mandatory treatment. She'll be admitted to [facility], medical workup, psychiatric workup in process, nursing evaluation, social work evaluation, and recreational therapy.] court and now court mandated Estimated Length of Stay: [10 days] Initial Discharge Plan: [ [facility], referred to therapist] Prognosis: [guarded] She is not responding to Zyprexa and will start Haldol Decanoate 50 mg with eventually will add lamictal 50 mg po qhs=patient refuses. This is a very difficult patient since she is not engaged in her medical psychiatric treatment. Time with Patient: Less than 30
[2018-08-25] MEDS: amLODIPine 10 MG TAB PO SCH (10:20)
[2018-08-25] MEDS: metFORMIN 500 MG TAB PO SCH (18:17)
[2018-08-25] MEDS: lamoTRIgine 25 MG TAB PO SCH (20:24)
[2018-08-26 07:56] LABS: Glucose,Whole Blood 116 mg/dL (75-99)
[2018-08-26 09:13] LABS: Basophils % (A) 0 %; Eosinophils # (A) 0.2 k/uL (0-0.7); Eosinophils % (A) 3 %; HCT 43.3 % (34.0-46.0); HGB 13.8 gm/dL (11.4-16.0); Lymphocytes # (A) 1.8 k/uL (1.0-4.8); Lymphocytes % (A) 29 %; MCH 30.5 pg (25.0-35.0); MCHC 31.9 g/dL (31.0-37.0); MCV 95.8 fL (80.0-100.0); Mean Platelet Volume 8.5; Monocytes # (A) 0.4 k/uL (0-1.0); Monocytes % (A) 7 %; Neutrophils # (A) 3.7 k/uL (1.3-7.7); Neutrophils % (A) 59 %; Platelet Count 197 k/uL (150-450); RBC 4.52 m/uL (3.80-5.40); RDW 12.6 % (11.5-15.5); WBC 6.3 k/uL (3.8-10.6)
[2018-08-26 09:28] LABS: Albumin 3.7 g/dL (3.5-5.0); Calcium 9.3 mg/dL (8.4-10.2); Potassium 4.6 mmol/L (3.5-5.1); Total Bilirubin 0.3 mg/dL (0.2-1.3); Total Protein 6.9 g/dL (6.3-8.2)
[2018-08-26] MEDS: amLODIPine 10 MG TAB PO SCH (09:28)
--- NOTE | 2018-08-26 19:30 | P.PN ---
Progress Note - Text Progress Note Date: 08/26/18 IDENTIFICATION DATA: This is a 67-year-old female brought in by police under petition due to bizzare behaviors, paranoid delusions, aggression and agitation. INTERVAL HISTORY: She reports feeling good. She says the only medication she wants to take is zyprexa brand name and not the olanzapine. She was grandiose and hyperverbal with pressured speech during the interview. 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 She says others are trying to steal her work and she does not want that to happen as she is going to get this proposal renewed for 100 years. She says the land she wanted for senior citizens was spoiled. MENTAL STATUS EXAMINATION: She appears her stated age in fair grooming and hygiene. She was pleasant and cooperative. No abnormal movements noted. Her mood is reported as good and affect appropriate. Her speech and thought process are pressured, tangential with flight of ideas. She denies current auditory or visual hallucinations. She has paranoid ideations. She denies current suicidal or homicidal ideations. She is alert and oriented 4. insight and judgment are limited. ASSESSMENT AND PLAN: No further changes at this time. Monitor for progress Continue safety precuations
[2018-08-26] MEDS: metFORMIN 500 MG TAB PO SCH (19:43)
[2018-08-26] MEDS: lamoTRIgine 25 MG TAB PO SCH (20:27)
[2018-08-26 21:13] LABS: Hemoglobin A1C 6.7 % (4.0-6.0)
[2018-08-27 04:49] LABS: Glucose,Whole Blood 118 mg/dL (75-99)
[2018-08-27] MEDS: amLODIPine 10 MG TAB PO SCH (09:04)
[2018-08-27 11:12] LABS: Appearance,Urine Clear (Clear); Bilirubin,Urine Negative (Negative); Blood,Urine Negative (Negative); Color,Urine Yellow; Glucose,Urine (UA) Negative (Negative); Ketones,Urine Negative (Negative); Leukocyte Esterase,Urine Negative (Negative); Nitrite,Urine Negative (Negative); Protein,Urine Negative (Negative); Specific Gravity,Urine 1.017 (1.001-1.035); Urobilinogen,Urine <2.0 mg/dL (<2.0)
--- NOTE | 2018-08-27 16:03 | P.PN ---
Progress Note - Text Progress Note Date: 08/27/18 IDENTIFICATION DATA: This is a 67-year-old female brought in by police under petition due to bizzare behaviors, paranoid delusions, aggression and agitation. INTERVAL HISTORY: Patient says she is not sure why her neice petitioned her. She says it is all negative energy and does not want to even talk about it. She says she lives alone and reports things have been missing /stolen from her apartment. She is planning to get a service dog at the advise of her friend to make sure that her things are not stolen from her apartment when ever she goes shopping. She perseverates on how she was miss handled by the police while bringing her to the hospital. She says she is not a criminal to be brought to the hospital in hand cuffs. She also says her muscles, joints becoming weak due to receiving injectable medications. 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 She stated she could not tolerate the propranolol and got switched to haldol. She stated she did like haldol and therefore started taking zyprexa 2.5mg for chemical imbalance. She says when she took olanzapine she had to go the eye doctor three times and does not want to take olanzapine. She wants to take only the brand named zyprexa. She reports good sleep and appetite. She reports going to all her groups. She denies current suicidal or homicidal ideations saying she wants to live 100 years. MENTAL STATUS EXAMINATION: She appears her stated age in fair grooming and hygiene. She was pleasant and cooperative. No abnormal movements noted. Her mood is reported as good and affect appropriate. Her speech is normal rate tone and volume. thought process is persevarative and talks about her medication affects. . She denies current auditory or visual hallucinations. She DENIES paranoia She denies current suicidal or homicidal ideations. She is alert and oriented 4. insight and judgment are IMPROVING ASSESSMENT AND PLAN: No further changes at this time. Monitor for progress Continue safety precautions
[2018-08-27] MEDS: metFORMIN 500 MG TAB PO SCH (17:51)
[2018-08-27] MEDS: lamoTRIgine 25 MG TAB PO SCH (20:42)
[2018-08-28] MEDS: amLODIPine 10 MG TAB PO SCH ×2 (07:43→11:14)
--- NOTE | 2018-08-28 09:27 | P.PN ---
Subjective Progress Note Date: 08/28/18 Principal diagnosis: mute schizoaffective disorder his is a 67-year-old female with a known medical history was brought in by police under petition. Patient apparently is been demonstrating a flight of ideas and very aggressive and agitated. She's been seen things that aren't there including snakes. Interval history today: This 67-year-old -Gibralt[place] female still remains elusive and bizarre as stated in the mental status examination below. She is now participating in treatment. Home Medications Medication Instructions Recorded Confirmed Cephalexin [Keflex] 500 mg PO QID 08/03/18 08/03/18 OLANZapine [ZyPREXA] 2.5 mg PO DAILY 08/03/18 08/03/18 metFORMIN HCL ER [Glucophage Xr] 1,000 mg PO PC-SUPPER 08/03/18 08/03/18 Objective - Vital Signs Vital signs: Vital Signs Temp 98.8 F 08/28/18 06:22 Pulse 60 08/28/18 06:22 Resp 18 08/28/18 06:22 BP 152/78 08/28/18 06:22 Pulse Ox 97 08/03/18 15:32 Intake & Output 08/27/18 08/28/18 08/28/18 18:59 06:59 18:59 Weight 77.2 kg - Labs CBC & Chem 7: 08/26/18 08:49 08/26/18 08:49 Assessment and Plan Assessment: Musculoskeletal Examination - Abnormal/Involuntary Movements: [none] Strength: [greater than antigravity (greater than/equal to 3/5) in all extremities:] Muscle Tone: [no impairment, ] Gait: [grossly normal, ] Station: [grossly normal] Mental Status Examination - her mental status examination still remains bizarre and disorganized thought process was unable to comprehend her mental illness nor any insight in how to get better General Appearance: [ casual, bizarre, appears older than stated age] Speech/Language: [slow, rapid,hesitant, halting] Attitude/Behavior: [guarded, irritable, withdrawn, indifferent] Mood: [ depressed, euphoric, anxious, elated, irritable, angry, fearful] Affect: [lively, incongruent, labile] Orientation: [ time, person, place situation] Thought Content: [ delusions Risk Factors: [not suicidal (ideations, plan), and/or Homicidal (ideations, plan )] Perception: [hallucinations (auditory] denies Thought Processes: [concrete, circumstantial, tangential Concentration/Attention Span: [impaired] [Per observation and interview with the patient] Recent Memory: impaired] [1 out of 3 in 3 minutes] Remote Memory: [ impaired] [past events, as related history] Intelligence: [below average] [based on history, based on vocabulary, syntax, grammar, and content] Judgement: [ fair] [per patient's behavior/history of present illness] Insight: [ fair] [understanding severity of illness/history of present illness] Admitting Diagnosis: [schizophrenia acute exacerbation with psychosis] Patient Strengths - Steady employment/financial stability: [disability] Housing stability: [x] Patient Limitations: [medication, non-compliance, pathological/unsupported environment, no interests, intellectual impairment, legal issues, lack of social supports] (1) Schizophrenia, chronic with acute exacerbation Current Visit: Yes Status: Acute Priority: High Code(s): F20.9 - SCHIZOPHRENIA, UNSPECIFIED SNOMED Code(s): 577406135 Plan: Plan of Care: [she was on demand order for coming to the hospital and she has no insight she'll have to return to court for mandatory treatment. She'll be admitted to [facility], medical workup, psychiatric workup in process, nursing evaluation, social work evaluation, and recreational therapy.] court and now court mandated Estimated Length of Stay: [10 days] Initial Discharge Plan: [ [facility], referred to therapist] Prognosis: [guarded] She is not responding to Zyprexa and will start Haldol Decanoate 50 mg with eventually will add lamictal 50 mg po qhs=patient refuses. This is a very difficult patient since she is not engaged in her medical psychiatric treatment. Time with Patient: Less than 30
[2018-08-28] MEDS: metFORMIN 500 MG TAB PO SCH ×2 (11:16→17:54)
[2018-08-28 13:10] LABS: Glucose,Whole Blood 98 mg/dL (75-99)
[2018-08-28] MEDS: INSULIN ASPART 100 UNIT/ML 1 ML 10 ML VIAL SQ SCH ×3 (14:36→20:09)
[2018-08-28 17:21] LABS: Glucose,Whole Blood 148 mg/dL (75-99)
[2018-08-28] MEDS: lamoTRIgine 25 MG TAB PO SCH (19:02)
[2018-08-28 20:09] LABS: Glucose,Whole Blood 93 mg/dL (75-99)
[2018-08-29 05:17] VITALS: TEMP 98.4
[2018-08-29 06:18] LABS: Glucose,Whole Blood 122 mg/dL (75-99)
[2018-08-29] MEDS: INSULIN ASPART 100 UNIT/ML 1 ML 10 ML VIAL SQ SCH ×4 (07:28→19:57)
[2018-08-29] MEDS: metFORMIN 500 MG TAB PO SCH ×2 (07:48→17:31)
[2018-08-29] MEDS: amLODIPine 10 MG TAB PO SCH (07:48)
--- NOTE | 2018-08-29 10:06 | P.PN ---
Subjective Progress Note Date: 08/29/18 Principal diagnosis: mute schizoaffective disorder his is a 67-year-old female with a known medical history was brought in by police under petition. Patient apparently is been demonstrating a flight of ideas and very aggressive and agitated. She's been seen things that aren't there including snakes. Interval history today: This 67-year-old -Angolan female still remains elusive and bizarre as stated in the mental status examination below. She is now participating in treatment. Home Medications Medication Instructions Recorded Confirmed Cephalexin [Keflex] 500 mg PO QID 08/03/18 08/03/18 OLANZapine [ZyPREXA] 2.5 mg PO DAILY 08/03/18 08/03/18 metFORMIN HCL ER [Glucophage Xr] 1,000 mg PO PC-SUPPER 08/03/18 08/03/18 Objective - Vital Signs Vital signs: Vital Signs Temp 98.4 F 08/29/18 05:16 Pulse 57 L 08/29/18 07:47 Resp 18 08/29/18 07:47 BP 147/69 08/29/18 07:47 Pulse Ox 97 08/03/18 15:32 - Labs CBC & Chem 7: 08/26/18 08:49 08/26/18 08:49 Labs: Abnormal Lab Results - Last 24 Hours (Table) 08/28/18 08/29/18 Range/Units 17:06 05:49 POC Glucose (mg/dL) 148 H 122 H (75-99) mg/dL Assessment and Plan Assessment: Musculoskeletal Examination - Abnormal/Involuntary Movements: [none] Strength: [greater than antigravity (greater than/equal to 3/5) in all extremities:] Muscle Tone: [no impairment, ] Gait: [grossly normal, ] Station: [grossly normal] Mental Status Examination - her mental status examination still remains disorganized thought process was unable to comprehend General Appearance: [ casual, appears older than stated age] Speech/Language: [rapid,hesitant, halting] Attitude/Behavior: [guarded, withdrawn, indifferent] Mood: [ anxious, elated, irritable, angry, fearful] Affect: [lively, incongruent, labile] Orientation: [ time, person, place situation] Thought Content: [ delusions Risk Factors: [not suicidal (ideations, plan), and/or Homicidal (ideations, plan )] Perception: [no hallucinations (auditory] denies Thought Processes: [less concrete, circumstantial, tangential Concentration/Attention Span: [impaired] [Per observation and interview with the patient] Recent Memory: impaired] [3 out of 3 in 3 minutes] Remote Memory: [ wnl] [past events, as related history] Intelligence: [ average] [based on history, based on vocabulary, syntax, grammar , and content] Judgement: [ fair] [per patient's behavior/history of present illness] Insight: [ fair] [understanding severity of illness/history of present illness] Admitting Diagnosis: [schizophrenia acute exacerbation with psychosis] Patient Strengths - now willing to take medications Steady employment/financial stability: [disability] Housing stability: [x] Patient Limitations: [medication, non-compliance, pathological/unsupported environment, no interests, intellectual impairment, legal issues, lack of social supports] (1) Schizophrenia, chronic with acute exacerbation Current Visit: Yes Status: Chronic Priority: Medium Code(s): F20.9 - SCHIZOPHRENIA, UNSPECIFIED SNOMED Code(s): 073079543 Plan: Plan of Care: [she was on demand order for coming to the hospital and she has no insight she'll have to return to court for mandatory treatment. She'll be admitted to [facility], medical workup, psychiatric workup in process, nursing evaluation, social work evaluation, and recreational therapy.] court and now court mandated Estimated Length of Stay: [2 days] Initial Discharge Plan: [ [facility], referred to therapist] Prognosis: [guarded] Haldol Decanoate 50 mg with eventually will add lamictal 50 mg po qhs=patient is now medication compliant. This is a very difficult patient since she is not engaged in her medical psychiatric treatment. Time with Patient: Less than 30
[2018-08-29 13:22] LABS: Glucose,Whole Blood 102 mg/dL (75-99)
[2018-08-29] MEDS: lamoTRIgine 25 MG TAB PO SCH (17:34)
[2018-08-29 17:56] LABS: Glucose,Whole Blood 102 mg/dL (75-99)
[2018-08-29 20:03] LABS: Glucose,Whole Blood 105 mg/dL (75-99)
[2018-08-30 06:13] LABS: Glucose,Whole Blood 98 mg/dL (75-99)
[2018-08-30] MEDS: INSULIN ASPART 100 UNIT/ML 1 ML 10 ML VIAL SQ SCH ×2 (07:23→12:39)
[2018-08-30] MEDS: amLODIPine 10 MG TAB PO SCH (07:45)
[2018-08-30] MEDS: metFORMIN 500 MG TAB PO SCH (07:45)
[2018-08-30 07:48] VITALS: BP 145/68; PULSE 54; RESP 18
[2018-08-30] MEDS ORDERED: HALOPERIDOL DECANOATE 50 MG/ML 1 ML VIAL IM ONE (11:45)
--- NOTE | 2018-08-30 11:45 | P.DS ---
Providers Date of admission: 08/03/18 19:51 Expected date of discharge: 08/30/18 Attending physician: Navneet Roberts DO Consults: 08/03/18 20:17 Consult Physician Routine Consulting Provider: Amaury Physician Consult Reason/Comments: medical management Do you want consulting provider notified?: Already Contacted Primary care physician: Brandon Cardona - Discharge Diagnosis(es) (1) Schizophrenia, chronic with acute exacerbation Chief Complaint: Psychiatric Symptoms Stated Complaint: MENTAL HEALTH PETITION Source: police, RN notes reviewed and personal interview with client Mode of arrival: ambulatory - History of Present Illness Initial Comments: This is a 67-year-old female with a known medical history was brought in by police under petition. Patient apparently is been demonstrating a flight of ideas and very aggressive and agitated. She's been seen things that aren't there including snakes. She stated that the poor putting nails and her feet. She apparently and route was having a conversation with no known person. Upon arrival she was very combative verbally abusive and at other times without answer any questions. No trauma is reported no other currently known modifying factors Musculoskeletal Examination - Abnormal/Involuntary Movements: [none] Strength: [greater than antigravity (greater than/equal to 3/5) in all extremities:] Muscle Tone: [no impairment, ] Gait: [grossly normal, ] Station: [grossly normal] Mental Status Examination - her mental status examination still remains disorganized thought process was unable to comprehend General Appearance: [ casual, appears older than stated age] Speech/Language: [rapid,hesitant, halting] Attitude/Behavior: [guarded, withdrawn, indifferent] Mood: [ anxious, elated, irritable, angry, fearful] Affect: [lively, incongruent, labile] Orientation: [ time, person, place situation] Thought Content: [ delusions Risk Factors: [not suicidal (ideations, plan), and/or Homicidal (ideations, plan )] Perception: [no hallucinations (auditory] Thought Processes: [less concrete, circumstantial, tangential Concentration/Attention Span: [impaired] [Per observation and interview with the patient] Recent Memory: wnl] [3 out of 3 in 3 minutes] Remote Memory: [ wnl] [past events, as related history] Intelligence: [ average] [based on history, based on vocabulary, syntax, grammar , and content] Judgement: [ fair] [per patient's behavior/history of present illness] Insight: [ fair] [understanding severity of illness/history of present illness] Current Visit: Yes Status: Chronic Priority: Low Hospital Course: Estimated Length of Stay: discharge today Initial Discharge Plan: [ [facility], referred to therapist, Dr Cardona for follow up Prognosis: [guarded] Haldol Decanoate 50 mg was given today at discharge lamictal 50 mg po qhs= patient is now medication compliant. Other medications are below and sent to [facility] Patient Condition at Discharge: Stable Plan - Discharge Summary Discharge Rx Participant: No New Discharge Prescriptions: New amLODIPine [Norvasc] 10 mg PO DAILY 90 Days #90 tab lamoTRIgine [LaMICtal] 50 mg PO 2100 90 Days #180 tab Continue Cephalexin [Keflex] 500 mg PO QID 10 Days #40 cap metFORMIN HCL ER [Glucophage Xr] 1,000 mg PO PC-SUPPER 90 Days #90 tab.er.24h Discontinued OLANZapine [ZyPREXA] 2.5 mg PO DAILY Discharge Medication List Cephalexin [Keflex] 500 mg PO QID 10 Days #40 cap 08/30/18 [Rx] amLODIPine [Norvasc] 10 mg PO DAILY 90 Days #90 tab 08/30/18 [Rx] lamoTRIgine [LaMICtal] 50 mg PO 2100 90 Days #180 tab 08/30/18 [Rx] metFORMIN HCL ER [Glucophage Xr] 1,000 mg PO PC-SUPPER 90 Days #90 tab.er.24h [Rx] Follow up Appointment(s)/Referral(s): [facility] [Outside] - 1-2 Days (walk in intake today until 300 830 -300 Tuesday 830 - 300) Brandon Cardona MD [Primary Care Provider] - 09/04/18 1:10 pm Patient Instructions/Handouts: Schizophrenia (GEN), Type 2 Diabetes in the Older Adult (GEN), Suicide Prevention (GEN) Activity/Diet/Wound Care/Special Instructions: PT IS TO SEE PODIATRIC SPECIALIST OUT PATIENT, PATIENT NEEDS SPECIAL SHOES FOR HER B[place]YUNS. Activity and diet as tolerated. Avoid the use of street drugs and alcohol. Take all medications as prescribed. When you are in need of refills on your medications please contact your medical provider and/or outpatient psychiatrist to have this done. Please go to scheduled outpatient appointment for aftercare treatment. If symptoms return or become worse, call the crisis line at [phone] and/or go to the nearest emergency room for evaluation. Discharge Disposition: HOME SELF-CARE
[2018-08-30 12:49] LABS: Glucose,Whole Blood 95 mg/dL (75-99)
== END 2018-08-30 14:33 | disposition home or self-care (01) | DRG 885 ==
LOC: EC 12:03 → 3MHU 19:51
PROVIDERS: ADMIT Psychiatry & Neurology Psychiatry; ATTEND Psychiatry & Neurology Psychiatry
DX: F20.89 Other schizophrenia (principal); E11.9 Type 2 diabetes mellitus without complications; R03.0 Elevated blood-pressure reading, without diagnosis of hypertension; E66.9 Obesity, unspecified; Z68.31 Body mass index [BMI] 31.0-31.9, adult; Z91.19 Patient's noncompliance with other medical treatment and regimen; Z79.2 Long term (current) use of antibiotics; Z79.84 Long term (current) use of oral hypoglycemic drugs; Z79.899 Other long term (current) drug therapy
CPT/HCPCS: 36415; 80053; 80306; 80320; 81001; 81003; 82075; 82140; 83036; 83520; 84484; 85025; 96372; 99285

== ENCOUNTER 2021-09-19 18:32 | Inpatient (IN) | payer MEDICARE, MEDICAID ==
[2021-09-19] MEDS ORDERED: MAG HYDROX/AL HYDROX/SIMETH 30 ML CUP PO PRN (21:44)
[2021-09-19] MEDS ORDERED: ACETAMINOPHEN TAB 325 MG TAB PO PRN (21:44)
[2021-09-19] MEDS ORDERED: LORazepam 1 MG TAB PO PRN (21:44)
[2021-09-19] MEDS ORDERED: MAGNESIUM HYDROXIDE 2,400 MG/10 ML CUP PO PRN (21:44)
[2021-09-19] MEDS ORDERED: LORazepam 2 MG/ML INJ IM PRN (21:48)
[2021-09-19] MEDS ORDERED: HALOPERIDOL LACTATE 5 MG/ML 1 ML VIAL IM PRN (21:49)
--- NOTE | 2021-09-19 22:24 | ED ---
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 Patient has been seen in our emergency department several times for similar complaint. She does become noncompliant with her medications and does have worsening delusional behavior. There is a by the niece accompanied with the patient's pickup order. Informs us that the patient has been talking about people that don't exist. She did male her family and a different state an envelope that contained food wrappers, certificate and random insurance paperwork. 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 reports that she is being harassed by police. Patient will not sit down in bed as she states that the person in the room next to her is coughing through the wall and spreading germs. No suicidal or homicidal behavior. Patient was picked up on a pickup order - Related Data Home Medications Medication Instructions Recorded Confirmed metFORMIN HCL ER [Glucophage XR] 500 mg PO TID 09/19/21 09/19/21 Allergies Allergy/AdvReac Type Severity Reaction Status Date / Time Unable to Assess Allergy Verified 08/03/18 20:32 Review of Systems ROS Statement: Those systems with pertinent positive or pertinent negative responses have been documented in the HPI. ROS Other: All systems not noted in ROS Statement are negative. Past Medical History Past Medical History: Unable to Obtain Additional Past Medical History / Comment(s): refusing to respond History of Any Multi-Drug Resistant Organisms: Unobtainable Past Surgical History: Unable to Obtain Past Psychological History: Unable to Obtain Smoking Status: Never smoker Past Alcohol Use History: None Reported, Unable to Obtain Past Drug Use History: None Reported, Unable to Obtain General Exam Limitations: altered mental status General appearance: alert, in no apparent distress Head exam: Present: atraumatic, normocephalic, normal inspection Eye exam: Present: normal appearance, PERRL, EOMI. Absent: scleral icterus, conjunctival injection, periorbital swelling Respiratory exam: Present: normal lung sounds bilaterally. Absent: respiratory distress, wheezes, rales, rhonchi, stridor Cardiovascular Exam: Present: regular rate, normal rhythm, normal heart sounds. Absent: systolic murmur, diastolic murmur, rubs, gallop, clicks Neurological exam: Present: alert Psychiatric exam: Present: flat affect, other (delusional) Skin exam: Present: warm, dry, intact, normal color. Absent: rash Course Vital Signs 09/19/21 19:08 Temperature 98.9 F Pulse Rate 64 Respiratory 18 Rate Blood Pressure 199/95 O2 Sat by Pulse 98 Oximetry Medical Decision Making - Medical Decision Making Upon arrival patient was placed into room 12. A thorough history and physical exam was performed. Patient was assessed by EPS and requires admission at this time. I did fill out a certification on the patient she was taken to the floor in stable condition - Lab Data Lab Results 09/19/21 Range/Units 20:28 Coronavirus (PCR) Not Detected (Not Detectd) Disposition Clinical Impression: Acute psychosis, Schizophrenia, chronic with acute exacerbation Disposition: TRANSFER TO PSYCH HOSP/UNIT Condition: Stable Is patient prescribed a controlled substance at d/c from ED?: No Decision to Admit Reason: Admit from EC
[2021-09-19] MEDS: metFORMIN 500 MG TAB PO SCH (23:36)
[2021-09-20] MEDS: metFORMIN 500 MG TAB PO SCH ×3 (08:56→21:49)
[2021-09-20 15:01] LABS: Glucose,Whole Blood 94 mg/dL (75-99)
[2021-09-20] MEDS: amLODIPine 10 MG TAB PO SCH ×2 (17:38→17:45)
--- NOTE | 2021-09-20 17:54 | HP ---
HISTORY AND PHYSICAL DATE OF SERVICE: 09/20/2021 IDENTIFYING DATA: The patient is a 70-year-old female living circumstances are uncertain. The patient was accompanied by her niece to the ED. She presented on a pick-up order. CHIEF COMPLAINT: The patient has a history of schizophrenia. She has been noncompliant with her medications and has had worsening delusional behavior. HISTORY OF PRESENTING ILLNESS: The patient said virtually nothing throughout the interview. The only information available is what is documented in the medical record. According to the emergency room note, the patient had been noncompliant with medications and having worsening delusions. She made statements of talking about people who do not exist. She apparently had mailed an envelope that contained food wrappers, certificate and random insurance paperwork. She made statements in the ED that she was an MD, that she was being harassed by police and that she believes someone in the next room to her was coughing and spreading germs through the wall. She presented on a pick-up order. It is noted that there is considerable documentation on the pick-up order about confusion, disorganized behavior, delusional thinking and disorientation. She has demonstrated paranoia including believing she is harassed by police. There is no further information available regarding her current circumstances, living situation or possible precipitating factors. She had one prior [facility] hospitalization on the psychiatric H and P of Dr. Roberts dated 08/04/2018. There is minimal documentation only stating that she came on petition demonstrating flight of ideas with agitation and aggressive behavior, she was seeing snakes, believed people were putting nails in her feet. From that admission, she was discharged on Lamictal 50 mg daily. She had been administered Haldol Decanoate 50 mg IM on the day of discharge. She is admitted for further evaluation. SUBSTANCE USE HISTORY: No information available. PAST MEDICAL HISTORY: No information available though the patient is prescribed metformin 500 mg 3 times a day. FAMILY AND SOCIAL HISTORY: No information available though it is noted the patient came to the ED accompanied by her niece. MENTAL STATUS EXAM: Patient was lying in bed. There were several attempts to encourage the patient to get up and possibly come down to the office. She continued to lay in bed with covers pulled over her head. After several repeat attempts over a number of hours, I went into the room with the nurse. The nurse pulled the covers off from her head. She did respond to about 4 questions with very brief answers, though she did not say much that was meaningful, though she did give appropriate responses to the questions. After that, she did not make any more statements and then within a matter of minutes, she pulled the covers over her head. She seemed to be aware that she was on a psychiatric unit. PHYSICAL EXAM: As per medical consultation. ASSESSMENT: This 70-year-old female is diagnosed with schizophrenia, chronic with acute exacerbation as based on the psychiatric admission H and P of Dr. Roberts dated 08/04/2018. We have no further information at present to allow further documentation. STRENGTHS: Include the patient's apparent state of fairly good health. WEAKNESS: Includes delusional thinking. DIAGNOSIS: 1. Schizophrenia, chronic with acute exacerbation as per her prior documentation. 2. Zym-ssrvsux-eiltrzwgl diabetes mellitus. RECOMMENDATIONS: Patient will be admitted for comprehensive medical psychiatric and psychosocial evaluation. We will engage the patient in individual and group therapeutic activities. At this point, I will defer starting any medication though would consider initiating IM medications to address psychosis. It will be important to contact family members perhaps, especially the niece to get further background information. There might be consideration for initiating Haldol Decanoate as potentially a loading dose to advanced treatment. We will give the patient some time to make at least immediate adjustment to the inpatient unit and see if she is able to gain some emotional competence to engage in treatment. We will focus on stabilization and discharge planning. FLORY / MEMO: [id number] /
--- NOTE | 2021-09-20 20:24 | CONS ---
CONSULTATION REASON FOR CONSULTATION: Advice regarding medical problems requested by Psychiatry. HISTORY OF PRESENT ILLNESS: This 70-year-old woman with a past medical history of schizophrenia being followed by Dr. Radha Up in the outpatient setting was admitted for psychiatric evaluation. The patient was saying that on Tuesday morning the patient had surgery ill of the umbilicus for private surgery. Otherwise the patient also had a past history of diabetes type 2 per previous chart. The further details are not available at this time. The blood pressure was also elevated during the previous estimations. There is no history of fever, rigors, chills at this time. PAST MEDICAL HISTORY: History of hypertension, diabetes and schizophrenia. MEDICATIONS: Home medications are metformin 500 mg p.o. t.i.d. ALLERGIES: Unable to assess. Family, social history and review of systems could not be taken. REVIEW OF SYSTEMS: Could not be taken, the patient is not cooperative with questioning. PHYSICAL EXAMINATION: Pulse is 64, blood pressure 190/95, respiration 18, temperature 98.2, pulse ox 98% on room air. HEENT: Conjunctivae normal. NECK: No JVD. CARDIOVASCULAR: S1, S2 muffled. RESPIRATION: Breath sounds diminished in the bases. No rhonchi. No crackles. ABDOMEN: Soft, nontender. LEGS: No edema. No swelling. NERVOUS SYSTEM: No focal deficits. Moves all 4 limbs. SKIN: No ulcer, no rash and no bleeding. JOINTS: No active deforming arthropathy. LABS: Not available. ASSESSMENT: 1. Possible schizophrenia, psychosis. 2. History of diabetes type 2. 3. Hypertension. 4. Obesity with body mass index of 34. RECOMMENDATIONS AND DISCUSSION: This 70-year-old woman who presented with multiple medical issues, at this time I recommend continue with psych medications. I would also recommend resume the metformin and the basic labs. Also recommend Norvas for blood pressure control and continue to monitor. We will be happy to review and the patient may be asked to follow up with primary physician closely after discharge. Thank you Dr. Ruth for letting us participate in the care of this patient. MMMIKEL / RADHAN: [id number] /
[2021-09-21 07:45] LABS: Glucose,Whole Blood 71 mg/dL (75-99)
[2021-09-21] MEDS: metFORMIN 500 MG TAB PO SCH ×3 (08:38→21:02)
[2021-09-21] MEDS: amLODIPine 10 MG TAB PO SCH (08:38)
--- NOTE | 2021-09-21 14:15 | P.PN ---
Progress Note - Text Progress Note Date: 09/21/21 Interval History: Patient was seen resting in bed and was directable and agreeable to speak with communications writer in her room. Currently, the patient is presenting as disorganized on the events leading up to his hospitalization. The patient reports that she felt like she was approached by police without any reason and was brought to the hospital for this. While admitted on the psychiatric unit, the patient is refusing any psychiatric medications stating that she is prescribed her own medication of Zyprexa which she states that she does not really need at this time because her "food is structurally and chemically similar to the imbalance that Zyprexa is to treat and therefore I do not need to take any Zyprexa." The patient vehemently denies any need for any psychiatric medications. She is otherwise not reporting any auditory or visual hallucinations. She denies any suicidal or homicidal ideation, intention, and/or plan. After the patient received a copy of her second clinical certificate filled out by this provider, the patient continues to vehemently deny any psychiatric illness and does not believe that she has a history of schizophrenia. She is currently denying any need for any medications and abruptly entered the interview with this provider. Mental Status Exam: General Appearance: Patient appears to be stated age is alert, directable, and cooperative. Behavior: Patient is calmly seated without any agitated behavior. Speech: Patient's speech is fluent and nonpressured. Mood/Affect: Mood is improving mildly, affect is congruent and constricted. Suicidality/Homicidality: Patient denies having any suicidal or homicidal ideation intent or plan. Perceptions: Patient denies any visual hallucinations and denies any auditory hallucinations Though content/process: The patient endorses bizarre delusions and a somewhat disorganized thought process. Loose associations. Memory and concentration: AOX3, grossly intact for the purposes of this session Judgment and insight: Poor Vital Signs Temp 98.0 F 09/21/21 03:32 Pulse 92 09/21/21 03:32 Resp 18 09/21/21 03:32 BP 145/78 09/21/21 03:32 Pulse Ox 98 09/19/21 19:08 Assessment Schizophrenia Plan: -Patient continues to meet criteria for inpatient psychiatric admission for symptom stabilization and safety. Second clinical certificate was filled out by this provider. -Medications: As patient has a history of nonadherence with treatment, we will initiate treatment with Invega 3 mg by mouth at bedtime for management of schizophrenia. The plan is to transition the patient to a long-acting injectable Invega Sustenna. At this time, the patient has a right to refuse medications. She is currently denying any desire for any medications. We will have to wait for a court order for mental health treatment. -When necessary Ativan and Haldol for agitation/aggression. -SW on board for discharge planning. Encouraged the patient to participate in milieu.
[2021-09-21] MEDS: PALIPERIDONE 3 MG TAB.ER.24 PO SCH (21:02)
[2021-09-22 07:58] LABS: Glucose,Whole Blood 154 mg/dL (75-99)
[2021-09-22] MEDS: amLODIPine 10 MG TAB PO SCH (09:41)
[2021-09-22] MEDS: metFORMIN 500 MG TAB PO SCH ×3 (09:41→21:45)
--- NOTE | 2021-09-22 12:43 | P.PN ---
Progress Note - Text Progress Note Date: 09/22/21 Interval History: Patient was seen in her room and refused to be interviewed. Patient initially barricaded her door prevented this provider from going in but later allowed the provider to go into the room. The patient maintains that she does not need any psychotropic medications prescribed by this provider or this hospital. She maintains that she will be receiving the medications which she has "already paid for." When she was informed that we can give her Zyprexa for psychosis, the patient continues to deny the medications stating that "what to give me his olanzapine and that is different." The patient is otherwise denying any suicidal or homicidal ideation, intention, and/or plan. She denies any auditory or visual hallucinations. Mental Status Exam: General Appearance: Patient appears to be stated age is alert, directable, and cooperative. Behavior: Patient is calmly seated without any agitated behavior. Speech: Patient's speech is fluent and nonpressured. Mood/Affect: Mood is improving mildly, affect is congruent and constricted. Suicidality/Homicidality: Patient denies having any suicidal or homicidal ideation intent or plan. Perceptions: Patient denies any visual hallucinations and denies any auditory hallucinations Though content/process: The patient endorses bizarre delusions and a somewhat disorganized thought process. Loose associations. Memory and concentration: Grossly intact for the purposes of this session Judgment and insight: Poor Vital Signs Temp 98.0 F 09/21/21 03:32 Pulse 92 09/21/21 03:32 Resp 18 09/21/21 03:32 BP 145/78 09/21/21 03:32 Pulse Ox 98 09/19/21 19:08 Assessment Schizophrenia Plan: -Patient continues to meet criteria for inpatient psychiatric admission for symptom stabilization and safety. Second clinical certificate was filled out by this provider. -Medications: As patient has a history of nonadherence with treatment, we'll continue to prescribe Invega 3 mg at bedtime with hopes to transition to a long-acting injectable. At this time, the patient has a right to refuse medications. She is currently denying any desire for any medications. We will have to wait for a court order for mental health treatment. -When necessary Ativan and Haldol for agitation/aggression. -SW on board for discharge planning. Encouraged the patient to participate in milieu.
[2021-09-22] MEDS: PALIPERIDONE 3 MG TAB.ER.24 PO SCH (21:45)
[2021-09-23 07:55] LABS: Glucose,Whole Blood 177 mg/dL (75-99)
[2021-09-23] MEDS: amLODIPine 10 MG TAB PO SCH (08:40)
[2021-09-23] MEDS: metFORMIN 500 MG TAB PO SCH ×3 (08:40→20:45)
--- NOTE | 2021-09-23 10:28 | P.PN ---
Progress Note - Text Progress Note Date: 09/23/21 Interval History: Patient was seen wandering the hallways and was agreeable to speak with commercial insurance underwriter in the office. The patient reports that she is feeling "okay." She is currently not reporting any suicidal or homicidal ideation, intention, and/or plan. She is denying any auditory or visual hallucinations. She continues to have some bizarre thoughts regarding her medications. Patient states that "you guys are not giving me my medications so I am making do with my diet." The pat ient states that "there is sulfur and the Zyprexa that I take so I am getting the sulfur by eating more mustard." The patient states that she plays mustard on her pancakes this morning instead of syrup in order to make up for her not taking any Zyprexa. The patient was informed that this is not how the medication works however she refuses to acknowledge this. When asked what she thinks about during the day, the patient reports that she "thinks about medical." When asked to further define what she means, the patient states that she is above what is being taught in all the classes here. He continues to refuse any medications. Mental Status Exam: General Appearance: Patient appears to be stated age is alert, directable, and cooperative. Behavior: Patient is calmly seated without any agitated behavior. Speech: Patient's speech is fluent and nonpressured. Mood/Affect: Mood is "I'm okay," affect is congruent and constricted. Suicidality/Homicidality: Patient denies having any suicidal or homicidal ideation intent or plan. Perceptions: Patient denies any visual hallucinations and denies any auditory hallucinations Though content/process: The patient endorses bizarre delusions and magical thinking. Loose associations. Memory and concentration: Grossly intact for the purposes of this session Judgment and insight: Poor Vital Signs Temp 98.0 F 09/21/21 03:32 Pulse 92 09/21/21 03:32 Resp 18 09/21/21 03:32 BP 145/78 09/21/21 03:32 Pulse Ox 98 09/19/21 19:08 Assessment Schizophrenia Plan: -Patient continues to meet criteria for inpatient psychiatric admission for symptom stabilization and safety. Second clinical certificate was filled out by this provider. -Medications: As patient has a history of nonadherence with treatment, we will continue to prescribe Invega 3 mg at bedtime with hopes to transition to a long-acting injectable. At this time, the patient has a right to refuse medications. She is currently d enying any desire for any medications. We will have to wait for a court order for mental health treatment. -When necessary Ativan and Haldol for agitation/aggression. -SW on board for discharge planning. Encouraged the patient to participate in milieu.
[2021-09-23] MEDS: PALIPERIDONE 3 MG TAB.ER.24 PO SCH (20:44)
[2021-09-24] MEDS: metFORMIN 500 MG TAB PO SCH ×3 (08:26→20:35)
[2021-09-24] MEDS: amLODIPine 10 MG TAB PO SCH (08:26)
--- NOTE | 2021-09-24 09:40 | P.PN ---
Progress Note - Text Progress Note Date: 09/24/21 Interval History: Patient was seen resting in bed and refused to get out of bed to speak with this provider. Patient remained mute during the psychiatric interview and refused to answer any questions brought on by this provider. She appeared to be awake but then closed her eyes and refused to open them. The interview was then terminated. Mental Status Exam: General Appearance: Patient appears to be stated age is alert, but not directable and cooperative. Behavior: Patient is lying in bed with poor eye contact. Speech: Patient's speech is fluent and nonpressured. Mood/Affect: Mood cannot be assessed at this time. Affect appears to be oppositional. Suicidality/Homicidality: Unable to assess at this time. Perceptions: Unable to assess at this time. Though content/process: Unable to assess at this time. Memory and concentration: Unable to assess at this time. Judgment and insight: Poor Vital Signs Temp 98.0 F 09/21/21 03:32 Pulse 92 09/21/21 03:32 Resp 18 09/21/21 03:32 BP 145/78 09/21/21 03:32 Pulse Ox 98 09/19/21 19:08 Laboratory Results POC Glucose (mg/dL) 177 mg/dL (75-99) H 09/23/21 07:50 POC [facility] Associate ID Tona Albright 09/23/21 07:50 Coronavirus (PCR) Not Detected (Not Detectd) 09/19/21 20:28 Assessment Schizophrenia Plan: -Patient continues to meet criteria for inpatient psychiatric admission for symptom stabilization and safety. Second clinical certificate was filled out by this provider. -No change in medical plan at this time. We will await court order for medications. -Medications: As patient has a history of nonadherence with treatment, we will continue to prescribe Invega 3 mg at bedtime with hopes to transition to a long-acting injectable. At this time, the patient has a right to refuse medications. She is currently denying any desire for any medications. We will have to wait for a court order for mental health treatment. -When necessary Ativan and Haldol for agitation/aggression. -SW on board for discharge planning. Encouraged the patient to participate in milieu.
[2021-09-24] MEDS: PALIPERIDONE 3 MG TAB.ER.24 PO SCH (20:35)
[2021-09-25 05:05] LABS: Glucose,Whole Blood 125 mg/dL (75-99)
[2021-09-25] MEDS: amLODIPine 10 MG TAB PO SCH (08:33)
[2021-09-25] MEDS: metFORMIN 500 MG TAB PO SCH ×3 (08:34→21:35)
--- NOTE | 2021-09-25 09:54 | P.PN ---
Progress Note - Text Progress Note Date: 09/25/21 Interval History: Patient was seen resting in her room. Currently, the patient is endorsing g randiose delusions. The patient states that she needs to be discharged because she is missing out on multiple medical conferences. She states that she is supposed to be attending the [employer] that she is falling behind on her continuing medical education credits. The patient states that she is "above all the doctors that they are going to catch up to her." She is currently not reporting any suicidal or homicidal ideation, intention, and/or plan. She is not reporting any auditory or visual hallucinations. She continues to be nonadherent with her medications. She states that she does not need any these medications as she is already on medications which she paid for. Mental Status Exam: General Appearance: Patient appears to be stated age is alert, directable, and cooperative. Behavior: Patient is calmly seated without any agitated behavior. Speech: Patient's speech is fluent and nonpressured. Mood/Affect: Mood is "I need to get my hair done." Affect is irritable and oppositional. Suicidality/Homicidality: Patient denies having any suicidal or homicidal ideation intent or plan. Perceptions: Patient denies any visual hallucinations and denies any auditory hallucinations Though content/process: The patient endorses grandiose delusions. Memory and concentration: Grossly intact for the purposes of this session Judgment and insight: Poor Assessment Schizophrenia Plan: -Patient continues to meet criteria for inpatient psychiatric admission for symptom stabilization and safety. Second clinical certificate was filled out by this provider. -Medications: As patient has a history of nonadherence with treatment, we will continue to prescribe Invega 3 mg at bedtime with hopes to transition to a long-acting injectable. At this time, the patient has a right to refuse medications. She is currently denying any desire for any medications. We will have to wait for a court order for mental health treatment. -When necessary Ativan and Haldol for agitation/aggression. -SW on board for discharge planning. Encouraged the patient to participate in milieu.
[2021-09-25] MEDS: PALIPERIDONE 3 MG TAB.ER.24 PO SCH (21:35)
[2021-09-26 06:11] LABS: Glucose,Whole Blood 122 mg/dL (75-99)
[2021-09-26] MEDS: metFORMIN 500 MG TAB PO SCH ×3 (08:31→21:16)
[2021-09-26] MEDS: amLODIPine 10 MG TAB PO SCH (08:31)
--- NOTE | 2021-09-26 11:28 | P.PN ---
Progress Note - Text Progress Note Date: 09/26/21 Interval history: Patient was seen sitting at a table alone with a chest board set up and was a greeable to speak to casualty underwriter this morning. She claims that she wants to go home so that she can get her hair done and spoke significantly about her hairdo. She minimized her need for medications and states that "I brought all my medications but they're not offering it to me". She appears to have poor reality testing and poor insight and judgment. She claims that her mood is "fine" and is denyin g any depression or anxiety today. She states that she slept fine last night. At this time patient denies any suicidal or homicidal ideations intent or plan. Denies any Auditory or visual hallucinations. Patient has been refusing her medications. Mental status exam: General Appearance: Patient appears to be elderly, with a hair net, stated age is alert, directable. Wearing hospital gown Behavior: No agitated behavior. Patient is calm and directable Speech: Patient's speech is fluent and nonpressured. Mood/Affect: Mood is improving mildly, affect is congruent and constricted. Suicidality/Homicidality: Patient denies having any suicidal or homicidal ideation intent or plan. Perceptions: Patient denies any auditory or visual hallucinations. Though content/process: Illogical, minimizing her symptoms and need for treatment. Focused on discharge. Memory and concentration: AOX3, grossly intact for the purposes of this session Judgment and insight: Chronically poor Assessment/Plan: Continue with current diagnosis. Patient continues to meet criteria for inpatient psychiatric admission for symptom stabilization and safety. Patient will be continued on paliperidone however is not taking her medications. She was encouraged to do so. Will continue to monitor ongoing response to treatment. Encouraged participation in milieu.
[2021-09-26] MEDS: PALIPERIDONE 3 MG TAB.ER.24 PO SCH (21:16)
[2021-09-27 05:09] LABS: Glucose,Whole Blood 152 mg/dL (75-99)
[2021-09-27] MEDS: metFORMIN 500 MG TAB PO SCH ×3 (08:09→20:29)
[2021-09-27] MEDS: amLODIPine 10 MG TAB PO SCH (08:09)
--- NOTE | 2021-09-27 11:30 | P.PN ---
Progress Note - Text Progress Note Date: 09/27/21 Interval history: Patient was seen sitting in group this morning and was agreeable to speak to tech writer. She appears to have a calm demeanor and answered questions as appropriately she could. She states that she was doing a survey in group. When asked about her medications she states that "they won't give me any of my medications" but states that she had bought her own medications and wants them instead. She was disorganized at times in her responses. She claims that she was able to sleep fairly last night and is denying any depression or anxiety today.She appears to have poor reality testing and poor insight and judgment. She claims that her mood is "fine". She states that she slept fine last night. At this time patient denies any suicidal or homicidal ideations intent or plan. Denies any Auditory or visual hallucinations. Patient has been refusing her medications. Mental status exam: General Appearance: Patient appears to be elderly, with a hair net, stated age is alert, directable. Wearing hospital gown Behavior: No agitated behavior. Patient is calm and directable Speech: Patient's speech is fluent and nonpressured. Mood/Affect: Mood is improving mildly, affect is congruent and constricted. Suicidality/Homicidality: Patient denies having any suicidal or homicidal ideation intent or plan. Perceptions: Patient denies any auditory or visual hallucinations. Though content/process: Illogical, minimizing her symptoms and need for treatment. Focused on discharge. Memory and concentration: AOX3, grossly intact for the purposes of this session Judgment and insight: Chronically poor Assessment/Plan: Continue with current diagnosis. Patient continues to meet criteria for inpatient psychiatric admission for symptom stabilization and safety. Patient will be continued on paliperidone however is not taking her medications. She was encouraged to do so. Will continue to monitor ongoing response to treatment. Encouraged participation in milieu.
[2021-09-27] MEDS: PALIPERIDONE 3 MG TAB.ER.24 PO SCH (20:29)
[2021-09-28] MEDS: amLODIPine 10 MG TAB PO SCH (08:42)
[2021-09-28] MEDS: metFORMIN 500 MG TAB PO SCH ×3 (08:42→21:04)
--- NOTE | 2021-09-28 10:14 | P.PN ---
Progress Note - Text Progress Note Date: 09/28/21 Interval History: Patient was seen hanging in the hallway and was agreeable to speak with the reno de. She is currently not reporting any suicidal or homicidal ideation, intention, and/or plan. She denies any auditory or visual hallucinations. Currently, the patient reports that she had little to no appetite over the weekend because "they're spraying sperm on my food." She was informed that this is not the case. The patient states "well you are not here doctor when the food arrives." She continues to refuse any medication. She continues to state that she does not need to be admitted to the inpatient psychiatric unit and is requesting discharge today. When informed that she would not be discharge, the patient becomes obstinate and terminates interview. Mental Status Exam: General Appearance: Patient appears to be stated age is alert, directable, and cooperative. Behavior: Patient is calmly seated without any agitated behavior. Speech: Patient's speech is fluent and nonpressured. Mood/Affect: Mood is "doing okay." Affect is euthymic with appropriate range. Suicidality/Homicidality: Patient denies having any suicidal or homicidal ideation intent or plan. Perceptions: Patient denies any visual hallucinations and denies any auditory hallucinations Though content/process: The patient endorses bizarre delusions. Memory and concentration: Grossly intact for the purposes of this session Judgment and insight: Poor Vital Signs Temp 98.0 F 09/21/21 03:32 Pulse 92 09/21/21 03:32 Resp 18 09/21/21 03:32 BP 145/78 09/21/21 03:32 Pulse Ox 98 09/19/21 19:08 Intake & Output 09/27/21 09/28/21 09/28/21 18:59 06:59 18:59 Weight 87.5 kg Assessment Schizophrenia Plan: -Patient continues to meet criteria for inpatient psychiatric admission for symptom stabilization and safety. Second clinical certificate was filled out by this provider. Patient refused to defer. Will await court. -Medications: As patient has a history of nonadherence with treatment, we will continue to prescribe Invega 3 mg at bedtime with hopes to transition to a long-acting injectable. At this time, the patient has a right to refuse medications. She is currently denying any desire for any medications. We will have to wait for a court order for mental health treatment. -When necessary Ativan and Haldol for agitation/aggression. -SW on board for discharge planning. Encouraged the patient to participate in milieu.
[2021-09-28] MEDS: PALIPERIDONE 3 MG TAB.ER.24 PO SCH (21:04)
[2021-09-29 07:44] LABS: Glucose,Whole Blood 138 mg/dL (75-99)
[2021-09-29] MEDS: amLODIPine 10 MG TAB PO SCH (07:44)
[2021-09-29] MEDS: metFORMIN 500 MG TAB PO SCH ×3 (07:44→20:47)
--- NOTE | 2021-09-29 10:43 | P.PN ---
Progress Note - Text Progress Note Date: 09/29/21 Interval History: Patient was seen sitting in the hallway and was agreeable to speak with the copy writer. The patient does endorse bizarre delusional beliefs. She continues to state that she cannot eat most of the food here because they are "sprayed." She is unable to identify today what she believes they are sprayed with. She continues to refuse any medication prescribed by this physician. She maintains that she has her own medications that she is required to take or that she will supplement it with her diet. She is currently not reporting any suicidal or homicidal ideation, intention, and/or plan. She is not reporting any auditory or visual hallucinations. She denies any medical issues at this time. Mental Status Exam: General Appearance: Patient appears to be stated age is alert, directable, and cooperative. Behavior: Patient is calmly seated without any agitated behavior. Speech: Patient's speech is fluent and nonpressured. Mood/Affect: Mood is "I'm fine and ready to go." Affect is euthymic with appropriate range. Suicidality/Homicidality: Patient denies having any suicidal or homicidal ideation intent or plan. Perceptions: Patient denies any visual hallucinations and denies any auditory hallucinations Though content/process: The patient endorses bizarre delusions. Fixated on discharge. Memory and concentration: Grossly intact for the purposes of this session Judgment and insight: Poor Vital Signs Temp 96.8 F L 09/29/21 06:12 Pulse 97 09/29/21 06:12 Resp 18 09/29/21 06:12 BP 134/80 09/29/21 06:12 Pulse Ox 98 09/19/21 19:08 Laboratory Results POC Glucose (mg/dL) 138 mg/dL (75-99) H 09/29/21 07:43 POC Glu Senior Front End Engineer ID Jessica Patton 09/29/21 07:43 Coronavirus (PCR) Not Detected (Not Detectd) 09/19/21 20:28 Assessment Schizophrenia Plan: -Patient continues to meet criteria for inpatient psychiatric admission for symptom stabilization and safety. Second clinical certificate was filled out by this provider. Patient refused to defer. Will await court. -Medications: As patient has a history of nonadherence with treatment, we will continue to prescribe Invega 3 mg at bedtime with hopes to transition to a long-acting injectable. At this time, the patient has a right to refuse medications. She is currently denying any desire for any medications. We will have to wait for a court order for mental health treatment. -When necessary Ativan and Haldol for agitation/aggression. -SW on board for discharge planning. Encouraged the patient to participate in milieu.
[2021-09-29 12:47] LABS: Glucose,Whole Blood 136 mg/dL (75-99)
[2021-09-29] MEDS: PALIPERIDONE 3 MG TAB.ER.24 PO SCH (20:46)
[2021-09-30 06:08] LABS: Glucose,Whole Blood 143 mg/dL (75-99)
[2021-09-30] MEDS: metFORMIN 500 MG TAB PO SCH ×3 (08:18→19:54)
[2021-09-30] MEDS: amLODIPine 10 MG TAB PO SCH (08:18)
--- NOTE | 2021-09-30 12:17 | P.PN ---
Progress Note - Text Progress Note Date: 09/30/21 Interval History: Patient was seen sitting in the hallway and was uncooperative and refused to be interviewed by this provider. She did not make eye contact with this provider. She spent her time rearranging chess pieces and did not speak at all to this provider and refused the interview. As per chart review, as documented by the nurse, the patient was seen responding to internal stimuli on 09/28/2021, reporting that snakes were filling up her room and that one of the snakes bit he r ankle. She refused medications when offered. Mental Status Exam: General Appearance: Patient appears to be stated age is alert, but not cooperative. Behavior: Patient is calmly seated without any agitated behavior. Patient is rearranging the chess pieces in the hallway. She appears to be moving them randomly and not abiding by rules of chess. Speech: Patient refuses to speak. Mood/Affect: Mood is cannot be assessed. Affect appears to be obstinate. Suicidality/Homicidality: Unable to assess. Perceptions: Unable to assess. Though content/process: Unable to assess. Memory and concentration: Unable to assess. Judgment and insight: Poor Assessment Schizophrenia Plan: -Patient continues to meet criteria for inpatient psychiatric admission for symptom stabilization and safety. Second clinical certificate was filled out by this provider. Patient refused to defer. Will await court. She is scheduled for court on 10/07/2021. -Medications: As patient has a history of nonadherence with treatment, we will continue to prescribe Invega 3 mg at bedtime with hopes to transition to a long-acting injectable. At this time, the patient has a right to refuse medications. She is currently d enying any desire for any medications. We will have to wait for a court order for mental health treatment. -When necessary Ativan and Haldol for agitation/aggression. -SW on board for discharge planning. Encouraged the patient to participate in milieu.
[2021-09-30] MEDS: PALIPERIDONE 3 MG TAB.ER.24 PO SCH (19:54)
[2021-10-01 07:46] LABS: Glucose,Whole Blood 190 mg/dL (75-99)
[2021-10-01] MEDS: metFORMIN 500 MG TAB PO SCH ×3 (08:36→20:32)
[2021-10-01] MEDS: amLODIPine 10 MG TAB PO SCH (08:36)
--- NOTE | 2021-10-01 10:31 | P.PN ---
Progress Note - Text Progress Note Date: 10/01/21 Interval History: Patient was seen sitting in the hallway and was uncooperative and refused to be interviewed by this provider. She did make eye contact but expressed no desire to speak to this provider. Staff note the patient slept for 3 hours. She has been eating her meals. Mental Status Exam: General Appearance: Patient appears to be stated age is alert, but not cooperative. She is wearing multiple masks. Behavior: Patient is calmly seated without any agitated behavior. Fair eye contact. Speech: Patient refuses to speak. Mood/Affect: Mood is cannot be assessed. Affect appears to flat. Suicidality/Homicidality: Unable to assess. Perceptions: Unable to assess. Though content/process: Unable to assess. Memory and concentration: Unable to assess. Judgment and insight: Poor Vital Signs Temp 96.8 F L 09/29/21 06:12 Pulse 97 09/29/21 06:12 Resp 18 09/29/21 06:12 BP 134/80 09/29/21 06:12 Pulse Ox 98 09/19/21 19:08 Assessment Schizophrenia Plan: -Patient continues to meet criteria for inpatient psychiatric admission for symptom stabilization and safety. Second clinical certificate was filled out by this provider. Patient refused to defer. Will await court. She is scheduled for court on 10/07/2021. -Medications: As patient has a history of nonadherence with treatment, we will continue to prescribe Invega 3 mg at bedtime with hopes to transition to a long-acting injectable. At this time, the patient has a right to refuse medications. She is currently denying any desire for any medications. We will have to wait for a court order for mental health treatment. -When necessary Ativan and Haldol for agitation/aggression. -SW on board for discharge planning. Encouraged the patient to participate in milieu.
[2021-10-01] MEDS: PALIPERIDONE 3 MG TAB.ER.24 PO SCH (20:32)
[2021-10-02 07:41] LABS: Glucose,Whole Blood 213 mg/dL (75-99)
[2021-10-02] MEDS: amLODIPine 10 MG TAB PO SCH (09:24)
[2021-10-02] MEDS: metFORMIN 500 MG TAB PO SCH ×3 (09:24→22:06)
--- NOTE | 2021-10-02 13:20 | P.PN ---
Progress Note - Text Progress Note Date: 10/02/21 Interval History: Patient was seen sitting in the hallway and was agreeable to the psychiatric interview. Currently, the patient denies any auditory or visual hallucinations. Denies any paranoia or other delusions. Despite this, the patient has been noted by staff to be responding to internal stimuli and has been witnessed by this provider to be speaking in acting on people or things that are not present. When brought up with the patient, she denies any of this is actually going on. She currently is continuing to refuse any psychotropic medications. She denies any issues regarding her appetite or sleep. Mental Status Exam: General Appearance: Patient appears to be stated age is alert, and is cooperative today. She is wondering multiple facemasks. Behavior: Patient is calmly seated without any agitated behavior. Fair eye contact. Speech: Speech is nonspontaneous and low in volume. Mood/Affect: Mood is "okay." Affect is blunted. Suicidality/Homicidality: Patient denies any suicidal or homicidal ideation, intention, and/or plan. Perceptions: Patient denies any auditory or visual hallucinations. Though content/process: Patient denies any overt delusions. She does appear to respond to internal stimuli. Memory and concentration: Grossly intact for purposes of this session. Judgment and insight: Poor Vital Signs Temp 96.8 F L 09/29/21 06:12 Pulse 97 09/29/21 06:12 Resp 18 09/29/21 06:12 BP 134/80 09/29/21 06:12 Pulse Ox 98 09/19/21 19:08 Intake & Output 10/01/21 10/02/21 10/02/21 18:59 06:59 18:59 Weight 87.5 kg Laboratory Results - Last 24 Hours 10/02/21 07:38 POC Glucose (mg/dL) 213 H POC Glu Product Design Manager ID Tona Albright Schizophrenia Plan: -Patient continues to meet criteria for inpatient psychiatric admission for symptom stabilization and safety. Second clinical certificate was filled out by this provider. Patient refused to defer. Will await court. She is scheduled for court on 10/07/2021. -Medications: As patient has a history of nonadherence with treatment, we will continue to prescribe Invega 3 mg at bedtime with hopes to transition to a long-acting injectable. At this time, the patient has a right to refuse medications. She is currently denying any desire for any medications. We will have to wait for a court order for mental health treatment. -When necessary Ativan and Haldol for agitation/aggression. -SW on board for discharge planning. Encouraged the patient to participate in milieu.
[2021-10-02] MEDS: PALIPERIDONE 3 MG TAB.ER.24 PO SCH (22:06)
[2021-10-03 06:21] LABS: Glucose,Whole Blood 181 mg/dL (75-99)
[2021-10-03] MEDS: amLODIPine 10 MG TAB PO SCH (08:49)
[2021-10-03] MEDS: metFORMIN 500 MG TAB PO SCH ×3 (08:49→21:38)
--- NOTE | 2021-10-03 14:21 | PN ---
PROGRESS NOTE DATE OF SERVICE: 10/03/2021. CHIEF COMPLAINT: The patient has a history of schizophrenia. She has been noncompliant with her medications and has had worsening delusional thinking and behavior. INTERVAL HISTORY: Patient has been at her baseline. She had a quiet day yesterday. Mostly she stayed in her room. She does not interact with others. At times she will come out on the unit and wonder about to a limited extent. She does not pay much attention to things going on around her. She appeared to sleep fairly well last night. Today she has been up and doing the same. She does not attend groups. She is adamant about the idea that she does not need medications other than her home medications. When I talked to her, she continued to be very reluctant to engage in any kind of productive conversation, especially about treatment. It is noteworthy that she has been declining medications. She did make a statement that she has Zyprexa at home and that she would take Zyprexa. I indicated we could consider that in the hospital. She stated that the hospital has olanzapine and not Zyprexa, and she made some comment about how the olanzapine is somehow toxic, whereas Zyprexa had sulfur in it, which she believes she needed. At that point she got up and left the room. MENTAL STATUS EXAM: Patient was somewhat restless. She did not give much eye contact. She did come into the office and sat for a short period of time. She would interact a little, though in a very limited way. She appeared to get frustrated with the interview and, as noted above, she abruptly left. When she did that, she shoved the chair she was sitting on under the table in quite an intense manner. She then walked out of the room and slammed the door quite hard. She continues to show response to internal stimuli. Her mood is quite dysphoric. It is noteworthy that she appears to be reasonably oriented, in that she was able to talk about some factual issues that were actual happenings. ASSESSMENT: I will continue the current diagnosis and treatment plan. We will continue to make efforts to engage the patient in individual and group therapeutic activities. I strongly encouraged the patient to consider taking medications. I also suggested we could switch to olanzapine. At this point it seems to clear that the patient will decline all psychotropics. I briefly reviewed issues relating to her petition, the upcoming court hearing on October 07, and the likelihood that she would be started on long-acting injectable medications. We will focus on stabilization and discharge planning. FLORY / RADHAN: [id number] /
[2021-10-03 17:32] LABS: Appearance,Urine Clear (Clear); Bacteria,Urine Occasional /hpf; Bilirubin,Urine Negative (Negative); Blood,Urine Negative (Negative); Color,Urine Light Yellow; Glucose,Urine (UA) 4+ (Negative); Hyaline Casts,Urine 1 /lpf (0-2); Ketones,Urine Negative (Negative); Leukocyte Esterase,Urine Large (Negative); Nitrite,Urine Negative (Negative); PH, Urine 6.5 (5.0-8.0); Protein,Urine Negative (Negative); RBC,Urine 1 /hpf (0-5); Specific Gravity,Urine 1.004 (1.001-1.035); Squamous Epithelial Cell,Urine <1 /hpf (0-4); Urobilinogen,Urine <2.0 mg/dL (<2.0); WBC,Urine 16 /hpf (0-5)
[2021-10-03] MEDS: CEPHALEXIN 500 MG CAP PO SCH ×2 (19:12→23:56)
[2021-10-03] MEDS: PALIPERIDONE 3 MG TAB.ER.24 PO SCH (21:38)
[2021-10-04] MEDS: CEPHALEXIN 500 MG CAP PO SCH ×3 (07:18→18:15)
[2021-10-04 07:57] LABS: Urine Alcohol Negative (Negative); Urine Barbiturate Negative (Negative); Urine Cocaine Negative (Negative); Urine Methadone Negative (Negative); Urine Opiates Negative (Negative); Urine Phencyclidine Negative (Negative)
[2021-10-04] MEDS: metFORMIN 500 MG TAB PO SCH ×3 (08:05→20:56)
[2021-10-04] MEDS: amLODIPine 10 MG TAB PO SCH (08:05)
--- NOTE | 2021-10-04 13:09 | PN ---
PROGRESS NOTE DATE OF SERVICE: 10/04/2021. CHIEF COMPLAINT: The patient has a history of schizophrenia. She has been noncompliant with her medications and has had worsening delusional thinking and behavior. INTERVAL HISTORY: Patient continues at her baseline. She had a quiet day yesterday. She will come out on the unit. Typically she will sit by herself. She does not seem to pay too much attention to things going on around her. She interacts minimally with staff. She apparently slept fairly well last night. Today she has been up. She continues in the same vein. She attended groups today though she did not participate in the conversations. She had just sat quietly. She had no specific concerns or complaints when I talked to her. I reviewed issues in regard to the petition process. The patient's response to that was "I have already dealt with the court." She declines medications. MENTAL STATUS: Patient sat without restlessness. She gave limited eye contact. She only responded to a few questions with current responses. Her thoughts seemed clear. Her affect flat. She did make the statement that the only thing she was concerned with was "that" in which she pointed to the door saying she needed to be let out. ASSESSMENT: I will continue the current diagnosis and treatment plan. We will continue to encourage the patient to engage in activities and consider accepting medications. We continue with a petition process. We will focus on stabilization and discharge planning. FLORY / MEMO: [id number] /
[2021-10-04] MEDS: PALIPERIDONE 3 MG TAB.ER.24 PO SCH (20:56)
[2021-10-05] MEDS: CEPHALEXIN 500 MG CAP PO SCH ×4 (01:51→17:38)
[2021-10-05] MEDS: metFORMIN 500 MG TAB PO SCH ×3 (09:44→21:11)
[2021-10-05] MEDS: amLODIPine 10 MG TAB PO SCH (09:44)
--- NOTE | 2021-10-05 10:15 | P.PN ---
Progress Note - Text Progress Note Date: 10/05/21 Interval History: Patient was seen sitting in a group and was agreeable to speak with policy writer in the office. The patient reports that she slept in the hallway last night because "the staff here that in one of my stalkers." She reports that the stalker was present in her room. The patient denies that it was any peer on the unit. When asked if staff can check the room prior to her sleeping, the patient reports that that would not suffice. She is otherwise not reporting any suici viktoria or homicidal ideation, intention, or plan. She is not reporting any auditory or visual hallucinations otherwise. She continues to refuse any antipsychotic medications. She states that she specifically wants to take her medication only. Her medication being Zyprexa and "not olanzapine." Mental Status Exam: General Appearance: Patient appears to be stated age is alert, and is cooperative today. She iswearing multiple facemasks. Behavior: Patient is calmly seated without any agitated behavior. Fair eye contact. Speech: Speech is nonspontaneous and low in volume. Mood/Affect: Mood is "fine.." Affect is blunted. Suicidality/Homicidality: Patient denies any suicidal or homicidal ideation, intention, and/or plan. Perceptions: Patient denies any auditory or visual hallucinations. Though content/process: Patient denies any overt delusions. She does appear to respond to internal stimuli. Memory and concentration: Grossly intact for purposes of this session. Judgment and insight: Poor Assessment Schizophrenia UTI Plan: -Patient continues to meet criteria for inpatient psychiatric admission for symptom stabilization and safety. Second clinical certificate was filled out by this provider. Patient refused to defer. Will await court. She is scheduled for court on 10/07/2021. -Continue treatment for UTI -Medications: As patient has a history of nonadherence with treatment, we will continue to prescribe Invega 3 mg at bedtime with hopes to transition to a long-acting injectable. At this time, the patient has a right to refuse medications. She is currently denying any desire for any medications. We will have to wait for a court order for mental health treatment. -When necessary Ativan and Haldol for agitation/aggression. -SW on board for discharge planning. Encouraged the patient to participate in milieu.
[2021-10-05] MEDS: PALIPERIDONE 3 MG TAB.ER.24 PO SCH (21:11)
[2021-10-06 01:02] VITALS: RESP 14
[2021-10-06] MEDS: CEPHALEXIN 500 MG CAP PO SCH ×4 (01:21→19:14)
[2021-10-06] MEDS: amLODIPine 10 MG TAB PO SCH (08:46)
[2021-10-06] MEDS: metFORMIN 500 MG TAB PO SCH ×3 (08:46→20:47)
--- NOTE | 2021-10-06 11:55 | P.PN ---
Progress Note - Text Progress Note Date: 10/06/21 Interval History: Patient was seen sitting in the hallway and refuses the psychiatric interview. She stares blankly at this provider. This provider encouraged the patient to take her antibiotics so that we may treat her UTI. She does not acknowledge what the provider says. Mental Status Exam: General Appearance: Patient appears to be stated age is alert, but refuses to cooperate. Behavior: Patient is calmly seated without any agitated behavior. Fair eye contact. Speech: Speech is nonverbal. Mood/Affect: Cannot assess. Suicidality/Homicidality: Cannot assess. Perceptions: Cannot assess. Though content/process: Cannot assess. Memory and concentration:Cannot assess. Judgment and insight: Cannot assess. Schizophrenia Plan: -Patient continues to meet criteria for inpatient psychiatric admission for symptom stabilization and safety. Second clinical certificate was filled out by this provider. Patient refused to defer. Will await court. She is scheduled for court on 10/07/2021. -Medications: As patient has a history of nonadherence with treatment, we will continue to prescribe Invega 3 mg at bedtime with hopes to transition to a long-acting injectable. At this time, the patient has a right to refuse medications. She is currently denying any desire for any medications. We will have to wait for a court order for mental health treatment. -When necessary Ativan and Haldol for agitation/aggression. -SW on board for discharge planning. Encouraged the patient to participate in milieu.
[2021-10-06] MEDS: PALIPERIDONE 3 MG TAB.ER.24 PO SCH (20:46)
[2021-10-07] MEDS: CEPHALEXIN 500 MG CAP PO SCH ×5 (03:23→23:54)
[2021-10-07] MEDS: amLODIPine 10 MG TAB PO SCH (07:58)
[2021-10-07] MEDS: metFORMIN 500 MG TAB PO SCH (07:58)
--- NOTE | 2021-10-07 11:36 | P.PN ---
Progress Note - Text Progress Note Date: 10/07/21 Interval History: Patient was seen wandering the hallways and was directable and agreeable to speak with securities underwriter in the hallway. She refused to speak in the office. The patient expresses that she is upset with this provider due to what he said during court. The patient states that she has not been refusing her medications despite constantly refusing her medications. She denies the need for treatment. She is upset and refuses to participate in the psychiatric interview but was informed that if she refuses the oral medication, we will have to administer IM medications in order to treat her. The patient does also state that she does not have a urinary tract infection and was ever urine we collected, was not hers. She believes someone else urinated in her washroom and gave their urine instead. Mental Status Exam: General Appearance: Patient appears to be stated age is alert, difficult to direct, and intermittently cooperative. The patient is wearing multiple layers and has multiple masks on. Behavior: Patient is standing in the hallway. Eye contact is appropriate. Speech: Patient's speech is fluent and nonpressured. Mood/Affect: Mood is annoyed, affect is congruent and irritable Suicidality/Homicidality: Unable to assess Perceptions: Unable to assess Though content/process: Delusional thought content is endorsed. Paranoid. Memory and concentration: Unable to assess Judgment and insight: Poor Vital Signs Temp 96.9 F L 10/06/21 01:01 Pulse 76 10/06/21 01:01 Resp 14 10/06/21 01:01 BP 147/68 10/06/21 01:01 Pulse Ox 98 09/19/21 19:08 Assessment Schizophrenia Plan: -Patient continues to meet criteria for inpatient psychiatric admission for symptom stabilization and safety. -The patient attended court today. We are awaiting court order paperwork for mental health treatment. -Medications: We will continue to prescribe Invega 3 mg at bedtime. Once the court order paperwork has arrived, we will initiate treatment with Zyprexa 5 mg IM when necessary should the patient refuses her oral Invega. -When necessary Ativan and Haldol for agitation/aggression. -SW on board for discharge planning. Encouraged the patient to participate in milieu.
[2021-10-07] MEDS: PALIPERIDONE 3 MG TAB.ER.24 PO SCH (20:16)
[2021-10-08] MEDS: CEPHALEXIN 500 MG CAP PO SCH (06:09)
[2021-10-08] MEDS: amLODIPine 10 MG TAB PO SCH (09:24)
[2021-10-08] MEDS: metFORMIN 500 MG TAB PO SCH ×3 (09:24→21:55)
[2021-10-08] MEDS ORDERED: cefTRIAXone 1,000 MG VIAL (IM USE) IM STA (11:00)
--- NOTE | 2021-10-08 11:02 | P.PN ---
Progress Note - Text Progress Note Date: 10/08/21 Interval history: Patient was seen sitting at the table in the hallway with a blanket wrapped a round her. Patient caught up and started walking towards senior grant writer when senior grant writer approached her. She did not look up at senior grant writer when senior grant writer was attempting to speak with her. She continued walking and ignored senior grant writer and did not respond at all. Mental status exam: General Appearance: Patient appears to be elderly, with a hair net, stated age is alert, not directable. Wearing hospital gown Behavior: No agitated behavior. Patient is calm, not cooperative today Speech: unable to assess Mood/Affect: unable to assess Suicidality/Homicidality: unable to assess Perceptions: unable to assess Though content/process: unable to assess. Memory and concentration: unable to assess Judgment and insight: Chronically poor Plan: -Patient continues to meet criteria for inpatient psychiatric admission for symptom stabilization and safety. -Patient is court ordered. -Medications: We will continue Invega 3 mg at bedtime. Patient is currently on a court order for treatment and has Zyprexa IM as back up if patient refuses oral Invega. -WIll give Rocephin 1000 mg IM today one dose for UTI as patient is refusing PO abx. -When necessary Ativan and Haldol for agitation/aggression. -SW on board for discharge planning. Encouraged the patient to participate in milieu.
[2021-10-08] MEDS: PALIPERIDONE 3 MG TAB.ER.24 PO SCH (21:51)
[2021-10-09] MEDS: metFORMIN 500 MG TAB PO SCH ×3 (08:57→21:14)
[2021-10-09] MEDS: amLODIPine 10 MG TAB PO SCH (08:57)
--- NOTE | 2021-10-09 11:55 | P.PN ---
Progress Note - Text Progress Note Date: 10/09/21 Interval History: Patient was seen in her room looking out the window. The patient refused to be interviewed. When the provider attempted to speak with the patient, she entered the bathroom and slammed the door. Chart review of the patient reveals that the patient has been taking her oral medications and did receive the IM Rocephin for management of her urinary tract infection. This provider attempted to assess whether the patient has been tolerating her medications but she refused to speak with this provider and remained selectively mute during the interview. Mental Status Exam: General Appearance: Patient appears to be stated age is alert and uncooperative. Behavior: Patient slammed the door shut and her restroom. No eye contact. Speech: Selectively mute Mood/Affect: Mood is cannot be assessed. Affect appears to be obstinate. Suicidality/Homicidality: Unable to assess Perceptions: Unable to assess Though content/process: Unable to assess. Memory and concentration: Unable to assess Judgment and insight: Poor Vital Signs Temp 96.9 F L 10/06/21 01:01 Pulse 76 10/06/21 01:01 Resp 14 10/06/21 01:01 BP 147/68 10/06/21 01:01 Pulse Ox 98 09/19/21 19:08 Assessment Schizophrenia Plan: -Patient continues to meet criteria for inpatient psychiatric admission for symptom stabilization and safety. -Medications: We will increase Invega to 6 mg by mouth at bedtime with her plans to continue to transition to a long-acting Invega Sustenna due to the patient's history of nonadherence to treatment. Should the patient refuse oral Invega, she will receive the IM injection of Zyprexa as she is currently under court order for mental health treatment. -When necessary Ativan and Haldol for agitation/aggression. -SW on board for discharge planning. Encouraged the patient to participate in milieu.
[2021-10-09] MEDS: PALIPERIDONE 6 MG TAB.ER.24 PO SCH (21:10)
[2021-10-10] MEDS: metFORMIN 500 MG TAB PO SCH ×3 (07:59→21:20)
[2021-10-10] MEDS: amLODIPine 10 MG TAB PO SCH (07:59)
--- NOTE | 2021-10-10 09:34 | P.PN ---
Subjective Progress Note Date: 10/10/21 Principal diagnosis: Psychotic disorder unspecified Subjective data: This is a psychiatric follow-up on thony paz who is being admitted to this unit since 09/19/21 Patient reports that she was admitted, for about 7 years and is from [facility] Patient states that she was on her way to attend an nutritional conference but is unclear as to how she ended up on the unit She stated that she is not being understood by anyone on this unit She said that she would like to go home today so she can wash her hair Patient stated that she is taking the medications as prescribed but sometimes she does not take them because they do not give her water Objective data: She was alert and oriented to place and person Affect at this time remains restricted Patient remains delusional with looseness of associations and flight of ideas Patient continues to be projective and appears to rationalize and intellectualize Insight into her problem is poor ABILITIES IMPAIRED ASSESSMENT: PSYCHOTIC DISORDER UNSPECIFIED URINARY TRACT INFECTION PLAN: PATIENT WAS ALSO STARTED ON INVEGA YESTERDAY in addition to her other medications Patient has not reported any side effects from her current medications Continue supportive care Continue building of rapport to improve her compliance . Sergei Florez M.D. 10/10/2021 Objective - Vital Signs Vital signs: Vital Signs Temp 96.9 F L 10/06/21 01:01 Pulse 76 10/06/21 01:01 Resp 14 10/06/21 01:01 BP 147/68 10/06/21 01:01 Pulse Ox 98 09/19/21 19:08
[2021-10-10 16:01] LABS: Glucose,Whole Blood 263 mg/dL (75-99)
[2021-10-10 20:10] LABS: Glucose,Whole Blood 344 mg/dL (75-99)
[2021-10-10] MEDS: INSULIN ASPART (NovoLOG) 100 UNIT/ML VIAL SQ SCH (20:14)
[2021-10-10] MEDS: PALIPERIDONE 6 MG TAB.ER.24 PO SCH (21:17)
[2021-10-10] MEDS: OLANZapine 10 MG VIAL IM PRN (21:34)
[2021-10-11 07:55] LABS: Glucose,Whole Blood 135 mg/dL (75-99)
[2021-10-11] MEDS: INSULIN ASPART (NovoLOG) 100 UNIT/ML VIAL SQ SCH ×4 (07:57→20:10)
[2021-10-11] MEDS: amLODIPine 10 MG TAB PO SCH (08:51)
[2021-10-11] MEDS: metFORMIN 500 MG TAB PO SCH ×3 (08:51→22:11)
--- NOTE | 2021-10-11 10:31 | P.PN ---
Subjective Progress Note Date: 10/11/21 Principal diagnosis: Psychotic disorder unspecified Subjective data: This is a psychiatric follow-up on thony paz who is being admitted to this unit since 09/19/21 The patient reports that she has no interest in any help here and would like to go home She states that nobody seems to understand her needs and that there is nothing wrong with her She denies any auditory or visual hallucinations She denies any thoughts of wanting to hurt self or others Objective data: She was alert and oriented to place and person Affect at this time remains restricted Patient remains delusional with looseness of associations and flight of ideas Patient continues to be projective and appears to rationalize and intellectualize Insight into her problem is poor ABILITIES IMPAIRED ASSESSMENT: PSYCHOTIC DISORDER UNSPECIFIED PLAN: PATIENT WAS ALSO STARTED ON INVEGA in addition to her other medications Patient has not reported any side effects from her current medications Continue supportive care Continue building of rapport to improve her compliance . Sergei Florez M.D. 10/11/2021 Objective - Vital Signs Vital signs: Vital Signs Temp 97.2 F L 10/11/21 00:03 Pulse 94 10/11/21 00:03 Resp 14 10/11/21 00:03 BP 169/78 10/11/21 00:03 Pulse Ox 98 09/19/21 19:08 Intake & Output 10/10/21 10/11/21 10/11/21 18:59 06:59 18:59 Weight 89.4 kg - Labs Labs: Abnormal Lab Results - Last 24 Hours (Table) 10/10/21 10/10/21 10/11/21 Range/Units 15:59 20:09 07:45 POC Glucose (mg/dL) 263 H 344 H 135 H (75-99) mg/dL
[2021-10-11 12:38] LABS: Glucose,Whole Blood 101 mg/dL (75-99)
[2021-10-11 17:48] LABS: Glucose,Whole Blood 98 mg/dL (75-99)
[2021-10-11 20:15] LABS: Glucose,Whole Blood 129 mg/dL (75-99)
[2021-10-11] MEDS: PALIPERIDONE 6 MG TAB.ER.24 PO SCH (21:47)
[2021-10-12] MEDS: INSULIN ASPART (NovoLOG) 100 UNIT/ML VIAL SQ SCH ×4 (08:50→21:11)
[2021-10-12] MEDS: amLODIPine 10 MG TAB PO SCH (08:50)
[2021-10-12] MEDS: metFORMIN 500 MG TAB PO SCH ×3 (08:51→21:55)
--- NOTE | 2021-10-12 12:24 | P.PN ---
Progress Note - Text Progress Note Date: 10/12/21 Interval History: Patient was seen wandering the hallways and was agreeable to speak with the conventional mortgage underwriter in her room. The patient has been adherent with her medications and is not endorsing any significant side effects at this time. She reports no auditory or visual hallucinations. She reports no suicidal or homicidal ideation, intention, and/or plan. She reports that the medication does make her feel "heavy." She states it causes her to have pain in her hip when she sleeps at night due to how heavy she is. She is otherwise not reporting anything else. She reports no issues regarding her sleep or her appetite. She denies any suicidal or homicidal ideation, intention, and/or plan. She does not wish to receive the IM invega sustenna but was informed this would be administered before discharge. Mental Status Exam: General Appearance: Patient appears to be stated age is alert, directable and cooperative. Behavior: Psychomotor activity is normal. Eye contact is appropriate. Speech: Nonspontaneous, but with normal volume and tone. Mood/Affect: Mood is "heavy." Affect is blunted but euthymic. Suicidality/Homicidality: Denies suicidal or homicidal ideation, intention, and/or plan. Perceptions: No hallucinations are endorsed. Though content/process: No delusional thought content today. Linear and logical in short conversation. Memory and concentration: Grossly intact for the purposes of this session. Judgment and insight: mildly improving Vital Signs Temp 97.2 F L 10/11/21 00:03 Pulse 94 10/11/21 00:03 Resp 14 10/11/21 00:03 BP 169/78 10/11/21 00:03 Pulse Ox 98 09/19/21 19:08 Intake & Output 10/11/21 10/12/21 10/12/21 18:59 06:59 18:59 Weight 89.4 kg Laboratory Results - Last 24 Hours 10/11/21 10/11/21 10/11/21 12:36 17:46 20:04 POC Glucose (mg/dL) 101 H 98 129 H POC Glu Overseer [employer] ID Jessica Patton Ellie Hadwin, [place] Assessment Schizophrenia Plan: -Patient continues to meet criteria for inpatient psychiatric admission for symptom stabilization and safety. -Medications: We will increase Invega to 9 mg by mouth at bedtime with her plans to continue to transition to a long-acting Invega Sustenna due to the patient's history of nonadherence to treatment. Should the patient refuse oral Invega, she will receive the IM injection of Zyprexa as she is currently under court order for mental health treatment. -When necessary Ativan and Haldol for agitation/aggression. -SW on board for discharge planning. Encouraged the patient to participate in milieu.
[2021-10-12 19:56] LABS: Glucose,Whole Blood 154 mg/dL (75-99)
[2021-10-12] MEDS ORDERED: PALIPERIDONE 3 MG TAB.ER.24 PO SCH (21:00)
[2021-10-12] MEDS ORDERED: WATER FOR INJECTION, STERILE 10 ML IV ONE (21:13)
[2021-10-12] MEDS: OLANZapine 10 MG VIAL IM PRN (21:17)
[2021-10-13] MEDS: amLODIPine 10 MG TAB PO SCH (08:45)
[2021-10-13] MEDS: INSULIN ASPART (NovoLOG) 100 UNIT/ML VIAL SQ SCH ×4 (08:45→21:28)
[2021-10-13] MEDS: metFORMIN 500 MG TAB PO SCH ×3 (08:45→21:28)
[2021-10-13] MEDS ORDERED: OLANZapine 10 MG VIAL IM PRN (09:16)
--- NOTE | 2021-10-13 10:59 | P.PN ---
Progress Note - Text Progress Note Date: 10/13/21 Interval History: Patient was seen wandering the hallways and was agreeable to speak with the headline writer in her room. Patient continues to report that she does not need the medications that she is receiving here. She believes that Invega was too high a dose as she only takes usually 2-3 mg of medications at most. She would not listen to any other reason as to why the medication was being increased. The patient continues to display poor insight into her condition. She does not believe she needs treatment for schizophrenia at all. She is currently not reporting any suicidal or homicidal ideation, intention, and/or plan. She is not reporting any auditory or visual hallucinations. She continues to make some loose associations and endorsed some bizarre thoughts but is otherwise cooperative during the interview. She refused her Invega last night and received IM Zyprexa. Mental Status Exam: General Appearance: Patient appears to be stated age is alert, directable and cooperative. Behavior: Psychomotor activity is normal. Eye contact is appropriate. Speech: Nonspontaneous, but with normal volume and tone. Mood/Affect: Mood is "okay" Affect is blunted Suicidality/Homicidality: Denies suicidal or homicidal ideation, intention, and/or plan. Perceptions: No hallucinations are endorsed. Though content/process: Mild delusional thoughts are endorsed today. Thought process is rigid. Memory and concentration: Grossly intact for the purposes of this session. Judgment and insight: mildly improving Vital Signs Temp 97.2 F L 10/11/21 00:03 Pulse 94 10/11/21 00:03 Resp 14 10/11/21 00:03 BP 169/78 10/11/21 00:03 Pulse Ox 98 09/19/21 19:08 Laboratory Results - Last 24 Hours 10/12/21 19:54 POC Glucose (mg/dL) 154 H POC Glu Community Sports Coordinator ID Emily Lock Assessment Schizophrenia Plan: -Patient continues to meet criteria for inpatient psychiatric admission for symptom stabilization and safety. -Medications: We will decrease Invega back to 6 mg by mouth at bedtime in order to encourage the patient to take the medication. Should the patient refuse she will receive IM Zyprexa 7.5 mg. We will transition the patient to long-acting Invega Sustenna due to her history of nonadherence to treatment. Should the patient refuse oral Invega, she will receive the IM injection of Zyprexa as she is currently under court order for mental health treatment. -When necessary Ativan and Haldol for agitation/aggression. -SW on board for discharge planning. Encouraged the patient to participate in milieu.
[2021-10-13 18:03] LABS: Glucose,Whole Blood 152 mg/dL (75-99)
[2021-10-13] MEDS: PALIPERIDONE 6 MG TAB.ER.24 PO SCH (21:28)
[2021-10-14 01:43] VITALS: BP 149/67; PULSE 73; TEMP 97.6
[2021-10-14] MEDS: metFORMIN 500 MG TAB PO SCH ×3 (08:25→22:14)
[2021-10-14] MEDS: amLODIPine 10 MG TAB PO SCH (08:25)
[2021-10-14] MEDS: INSULIN ASPART (NovoLOG) 100 UNIT/ML VIAL SQ SCH ×4 (08:25→21:50)
[2021-10-14] MEDS ORDERED: PALIPERIDONE IM 234 MG/1.5 ML SYG IM STA (10:47)
--- NOTE | 2021-10-14 10:50 | P.PN ---
Progress Note - Text Progress Note Date: 10/14/21 Interval History: Patient was seen wandering the hallways and was agreeable to speak with the typewriter ribbon winder in the office. Currently, the patient is not reporting any auditory or visual hallucinations. She is denying any paranoia or other delusions. The patient has been adherent with her medications and is reporting no significant side effects at this time. The patient was informed that she has to receive the long-acting injectable medication prior to discharge. She is unhappy with this but is agreeable at this time. The patient is otherwise attending groups and has been more socially appropriate with peers and staff. She denies any issues with any chest pain, shortness of breath, or muscle tightness. Mental Status Exam: General Appearance: Patient appears to be stated age is alert, directable and cooperative. Behavior: Psychomotor activity is normal. Eye contact is appropriate. Speech: Nonspontaneous, but with normal volume and tone. Mood/Affect: Mood is "okay" Affect is blunted Suicidality/Homicidality: Denies suicidal or homicidal ideation, intention, a nd/or plan. Perceptions: No hallucinations are endorsed. Though content/process: The patient is more linear and logical in short conversation today. Memory and concentration: Grossly intact for the purposes of this session. Judgment and insight: mildly improving Vital Signs Temp 97.6 F 10/14/21 01:43 Pulse 73 10/14/21 01:43 Resp 14 10/14/21 01:43 BP 149/67 10/14/21 01:43 Pulse Ox 98 09/19/21 19:08 Laboratory Results - Last 24 Hours 10/13/21 18:02 POC Glucose (mg/dL) 152 H POC Glu Manager Reimbursement Jessica Arora Assessment Schizophrenia Plan: -Patient continues to meet criteria for inpatient psychiatric admission for symptom stabilization and safety. -Medications: -We'll administer her Invega Sustenna 234 mg IM today for schizophrenia. We will hold on the second loading dose due to the patient's age and have the patient follow-up in the outpatient setting. -Will continue the oral Invega at this time and likely discontinue the medication prior to discharge. -When necessary Ativan and Haldol for agitation/aggression. -SW on board for discharge planning. Encouraged the patient to participate in milieu.
[2021-10-14 12:37] LABS: Glucose,Whole Blood 179 mg/dL (75-99)
[2021-10-14 17:32] LABS: Glucose,Whole Blood 146 mg/dL (75-99)
[2021-10-14] MEDS: PALIPERIDONE 6 MG TAB.ER.24 PO SCH (21:50)
[2021-10-15] MEDS: INSULIN ASPART (NovoLOG) 100 UNIT/ML VIAL SQ SCH ×2 (07:46→12:59)
[2021-10-15 07:47] LABS: Glucose,Whole Blood 175 mg/dL (75-99)
[2021-10-15] MEDS: metFORMIN 500 MG TAB PO SCH (08:25)
[2021-10-15] MEDS: amLODIPine 10 MG TAB PO SCH (08:25)
--- NOTE | 2021-10-15 11:05 | P.DS ---
Providers Date of admission: 09/19/21 21:43 Expected date of discharge: 10/15/21 Attending physician: Sg Leslie MD Consults: 09/19/21 21:44 Consult Physician Routine Consulting Provider: Thaddeus Best Consult Reason/Comments: medical management Do you want consulting provider notified?: Yes Primary care physician: Radha Up - Discharge Diagnosis(es) (1) Schizophrenia, chronic with acute exacerbation Current Visit: Yes Status: Chronic Priority: High Hospital Course: Admission HPI: Initial psychiatric evaluation was completed by Dr. Ruth on 09/20/2021 who wrote: "The patient is a 70-year-old female with unknown living circumstances. The patient was accompanied by her niece to the Emergency Department. She presented on a pickup order. The patient has a history of schizophrenia. She has been noncompliant with her medications and has had worsening delusional behavior. The patient said virtually nothing throughout the interview. The only information available as well as documents to medical record. According to emergency room note, the patient had been noncompliant with medications and having worsening delusions. She made statements of talking about people who do not exist. She apparently had mailed an envelope that contained food wrappers, certificate, and random entrance report. She made statements in the emergency department that she is an M.D., that she was being harassed by police and that she believes someone in the next room to her was coughing and spreading germs to the wall. She presented on a pickup order. It is noted that there is considerable documentation pickup order about confusion, disorganized behavior, delusional thinking, and disorientation. She has demonstrated paranoia including believing that she is harassed by police. There is no further information available regarding her current circumstances, living situation, or possible precipitating factors. She has had 1 prior [facility] hospitalization in the psychiatric unit under the care of Dr. Roberts dated 08/04/2018. There is minimal documentation on the scene that she came on petition and asserting flight of ideas with agitation and aggressive behavior, she was seeing snakes, believed people are putting nails and her feet. From that admission, she was discharged on Lamictal 50 mg daily. She had been administered Haldol Decanoate 50 mg IM on the day of discharge. She is admitted for further evaluation." Hospital course: Upon admission to the unit patient was initially cooperative with treatment and refuses medications. The patient had significant delusional thoughts about the medication and stated that her home medication of Zyprexa was different from the Zyprexa that was being prescribed by this hospital. The patient was subsequently certified due to her delusional thought disorder as well as her inability to understand the need for treatment. The patient refused evaluation intimately during the hospitalization. She has been noted to respond to internal stimuli, have conversations with people that were not present, and continued to endorse bizarre delusional thoughts regarding her health. The patient became more withdrawn and this was noticeable. Her urinary analysis was ordered and is determined that the patient did have a urinary tract infection. However, the patient refused any antibiotic medications to treat her urinary tract infection. On 10/07/2021, the patient was court ordered to receive mental health treatment. The patient did receive IM antibiotics for management for urinary tract infection. The patient was started on Invega with the plan to transition the patient to long-acting Invega Sustenna. The patient was initially hesitant to receive the medication and only took it intermittently and received IM Zyprexa when she refused. Eventually the medication was titrated and the patient was administered a loading dose of 234 mg IM of Invega Sustenna on 10/14/2021. The patient displayed significant improvement on the oral regimen of Invega. She became more cooperative and calm during the interviews as well as reported no overt delusional thought processes or respond to internal stimuli. On the day of discharge, the patient is not reporting any suicidal or homicidal ideation, intention, or is denying any auditory or visual hallucinations. She does not mention any overt delusional thoughts at this time. The patient has been adherent with the medications and is not reporting any significant side effects from receiving a long-acting injectable medication. She displays future orientation. The patient was counseled at length on the importance of medication adherence and to follow up with her appropriate outpatient appointments. Furthermore, the patient was counseled at length on avoiding all substances including alcohol and marijuana. The patient denies any access to firearms or other weapons. Prior to discharge, family meeting will be arranged by psychiatric social worker to answer any questions and ensure safety. Mental status exam: General Appearance: Patient appears to be stated age is alert, pleasant, and cooperative. Patient is in no acute distress and has fair hygiene and grooming Behavior: Patient is calmly seated without any agitated behavior. Speech: Patient's speech is fluent and nonpressured. Mood/Affect: Patient reports their mood is "feeling really good", affect is congruent and euthymic. Suicidality/Homicidality: Patient denies having any suicidal or homicidal ideation intent or plan. Perceptions: Patient denies any auditory or visual hallucinations. Though content/process: There is no evidence of any delusional thought content and thought process is linear and goal-directed. Patient is future oriented. Memory and concentration: AOX3, grossly intact for the purposes of this session. Can spell "WORLD" backwards correctly. Judgment and insight: Improved with guarded prognosis Vital Signs Temp 97.6 F 10/14/21 01:43 Pulse 73 10/14/21 01:43 Resp 14 10/14/21 01:43 BP 149/67 10/14/21 01:43 Pulse Ox 98 09/19/21 19:08 Impression: Schizophrenia Plan: -Continue with discharge today as patient has improved and stabilized psychiatrically and is not currently an imminent threat to herself and/or others. Patient will remain at chronically elevated risk impaired to the general population due to the severity of her mental illness. -Continue medications: Invega Sustenna 234 mg IM was administered on 10/14/2021. Second loading dose of Invega Sustenna 156 more grams IM is due on 10/21/2021. We will defer to the outpatient psychiatrist whether to administer the second dose or not as the patient is 70 years old and there is a black box warning for increased cardiovascular events with antipsychotic medication in this age group. -Patient was counseled on the need for medication compliance and appropriate follow-up at mental health and also primary care for medical issues. Patient verbalized understanding and agreed. -Social work to arrange for and conduct family meeting to ensure safety upon discharge and answer any questions/concerns. Social work also to arrange for patients follow up appointments with [facility] for psychiatric care along with follow up with primary care provider. -Patient counseled on abstaining from recreational drugs and marijuana and alcohol. Was informed/educated on the adverse effects on their physical and mental health. Patient verbally agreed and understood. -Patient was instructed to return to the hospital or seek immediate medical care if their psychiatric or medical symptoms do worsen or reoccur. -Psychoeducation and supportive therapy provided to patient. Risks and benefits of pharmacological treatment versus the risks and benefits of nontreatment weight and discussed. Informed consent discussion held. Common side effects of psychotropics discussed such as, but not limited to headache, GI disturbance, sexual dysfunction, movement disorders, sedation, and orthostatic hypotension. Life threatening and blackbox warnings of prescribed medications also discussed. Potential risks of operating a vehicle or heavy machinery discussed with patient at length. Advised on importance of compliance and a reliable and responsible manner. Patient advised to review FDA consumer labeling of all medications prior to taking. Patient verbalized understanding of potential risks, and agrees with current treatment plan. Patient advised to medically contact physician/emergency personnel if any acute changes in condition occur. Allergies Allergy/AdvReac Type Severity Reaction Status Date / Time Unable to Assess Allergy Verified 08/03/18 20:32 Laboratory Results POC Glucose (mg/dL) 175 mg/dL (75-99) H 10/15/21 07:44 POC Glu Advanced Practice Registered Nurse ID Familia Dai 10/15/21 07:44 Urine Color Light Yellow 10/03/21 16:49 Urine Appearance Clear (Clear) 10/03/21 16:49 Urine pH 6.5 (5.0-8.0) 10/03/21 16:49 Ur Specific [place] 1.004 (1.001-1.035) 10/03/21 16:49 Urine Protein Negative (Negative) 10/03/21 16:49 Urine Glucose (UA) 4+ (Negative) H 10/03/21 16:49 Urine Ketones Negative (Negative) 10/03/21 16:49 Urine Blood Negative (Negative) 10/03/21 16:49 Urine Nitrite Negative (Negative) 10/03/21 16:49 Urine Bilirubin Negative (Negative) 10/03/21 16:49 Urine Urobilinogen <2.0 mg/dL (<2.0) 10/03/21 16:49 Ur Leukocyte Esterase Large (Negative) H 10/03/21 16:49 Urine RBC 1 /hpf (0-5) 10/03/21 16:49 Urine WBC 16 /hpf (0-5) H 10/03/21 16:49 Ur Squamous Epith Cells <1 /hpf (0-4) 10/03/21 16:49 Urine Bacteria Occasional /hpf (None) H 10/03/21 16:49 Hyaline Casts 1 /lpf (0-2) 10/03/21 16:49 Urine Opiates Screen Negative (Negative) 10/03/21 16:49 Urine Methadone Screen Negative (Negative) 10/03/21 16:49 Ur Propoxyphene Screen Negative (Negative) 10/03/21 16:49 Urine Barbiturates Negative (Negative) 10/03/21 16:49 Ur Phencyclidine Scrn Negative (Negative) 10/03/21 16:49 Ur Amphetamine Screen Negative (Negative) 10/03/21 16:49 U Benzodiazepines Scrn Negative (Negative) 10/03/21 16:49 Urine Cocaine Screen Negative (Negative) 10/03/21 16:49 U Cannabinoids Screen Negative (Negative) 10/03/21 16:49 Urine Alcohol Negative (Negative) 10/03/21 16:49 Coronavirus (PCR) Not Detected (Not Detectd) 09/19/21 20:28 Patient Condition at Discharge: Stable Plan - Discharge Summary Discharge Rx Participant: No New Discharge Prescriptions: New metFORMIN HCL [Glucophage] 500 mg PO TID 30 Days tab Paliperidone IM [Invega Sustenna] 156 mg IM QMONTHLY #1 each amLODIPine [Norvasc] 10 mg PO DAILY 30 Days tab Discontinued metFORMIN HCL ER [Glucophage XR] 500 mg PO TID Discharge Medication List Paliperidone IM [Invega Sustenna] 156 mg IM QMONTHLY #1 each 10/15/21 [Rx] amLODIPine [Norvasc] 10 mg PO DAILY 30 Days tab 10/15/21 [Rx] metFORMIN HCL [Glucophage] 500 mg PO TID 30 Days tab 10/15/21 [Rx] Follow up Appointment(s)/Referral(s): [facility] [Outside] - 10/15/21 10:30 am (Intake on unit today (10/15) with [facility]) Radha Up MD [Primary Care Provider] - 1 Week Patient Instructions/Handouts: Schizophrenia (DC), Type 2 Diabetes in the Older Adult (DC), What to Do if Your Blood Sugar is Low (DC) Activity/Diet/Wound Care/Special Instructions: Activity and diet as tolerated. Avoid the use of street drugs and alcohol. Take all medications as prescribed. When you are in need of refills on your medications please contact your medical provider and/or outpatient psychiatrist to have this done. Please go to scheduled outpatient appointment for aftercare treatment. If symptoms return or become worse, call the crisis line at and/or go to the nearest emergency room for evaluation Discharge Disposition: HOME SELF-CARE
[2021-10-15 11:36] VITALS: BMI 33.8
[2021-10-15 12:47] LABS: Glucose,Whole Blood 122 mg/dL (75-99)
== END 2021-10-15 14:08 | disposition home or self-care (01) | DRG 885 ==
LOC: EC 18:32 → 3MHU 21:43
PROVIDERS: ADMIT Psychiatry & Neurology Psychiatry; ATTEND Psychiatry & Neurology Psychiatry
DX: F20.9 Schizophrenia, unspecified (principal); N39.0 Urinary tract infection, site not specified; E11.9 Type 2 diabetes mellitus without complications; E66.9 Obesity, unspecified; I10 Essential (primary) hypertension; R45.1 Restlessness and agitation; Z68.34 Body mass index [BMI] 34.0-34.9, adult; Z79.84 Long term (current) use of oral hypoglycemic drugs; T43.506A Underdosing of unspecified antipsychotics and neuroleptics, initial encounter; Z91.128 Patient's intentional underdosing of medication regimen for other reason; Z71.51 Drug abuse counseling and surveillance of drug abuser; Z20.822 Contact with and (suspected) exposure to COVID-19; Z79.899 Other long term (current) drug therapy
CPT/HCPCS: 80306; 81001; 82075; 87086; 87635; 99285

== ENCOUNTER 2021-10-15 16:57 | Inpatient (IN) | payer MEDICARE, MEDICAID ==
--- NOTE | 2021-10-15 17:52 | ED ---
General Adult HPI - General Chief complaint: Psychiatric Symptoms Stated complaint: Mental Health eval Time Seen by Provider: 10/15/21 17:15 Source: patient, EMS, RN notes reviewed, old records reviewed Mode of arrival: EMS Limitations: no limitations - History of Present Illness Initial comments: This is a 70-year-old female presents emergency department because she refused to go into her apartment because there were demons inside. Patient was just released from the mental health unit 2 hours prior when they took her to her apartment she refused to go when it was cleanly there were demons inside so they brought her back to the emergency department. Patient denies this currently and she states she would go into her apartment if she could just find some keys. Patient denies any physical complaints. - Related Data Previous Rx's Medication Instructions Recorded Paliperidone IM [Invega Sustenna] 156 mg IM QMONTHLY #1 each 10/15/21 amLODIPine [Norvasc] 10 mg PO DAILY 30 Days tab 10/15/21 metFORMIN HCL [Glucophage] 500 mg PO TID 30 Days tab 10/15/21 Allergies Allergy/AdvReac Type Severity Reaction Status Date / Time Unable to Assess Allergy Verified 08/03/18 20:32 Review of Systems ROS Statement: Those systems with pertinent positive or pertinent negative responses have been documented in the HPI. ROS Other: All systems not noted in ROS Statement are negative. Past Medical History Past Medical History: Diabetes Mellitus Additional Past Medical History / Comment(s): limited history, pt is not able to answer acurrately. States she sees a make up girl and takes aspirin but is unsure why. History of Any Multi-Drug Resistant Organisms: Unobtainable Past Surgical History: Unable to Obtain Past Psychological History: Depression Smoking Status: Never smoker Past Alcohol Use History: None Reported Past Drug Use History: None Reported General Exam - General Exam Comments Initial Comments: GENERAL: Patient is well-developed and well-nourished. Patient is nontoxic and well- hydrated and is in no acute distress. ENT: Neck is soft and supple. No significant lymphadenopathy is noted. Oropharynx is clear. Moist mucous membranes. Neck has full range of motion without eliciting any pain. EYES: The sclera were anicteric and conjunctiva were pink and moist. Extraocular movements were intact and pupils were equal round and reactive to light. Eyelids were unremarkable. PULMONARY: Unlabored respirations. Good breath sounds bilaterally. No audible rales rhonchi or wheezing was noted. CARDIOVASCULAR: There is a regular rate and rhythm without any murmurs gallops or rubs. ABDOMEN: Soft and nontender with normal bowel sounds. SKIN: Skin is clear with no lesions or rashes and otherwise unremarkable. NEUROLOGIC: Patient is alert and oriented x3. Cranial nerves II through XII are grossly intact. Motor and sensory are also intact. Normal speech, volume and content. Symmetrical smile. MUSCULOSKELETAL: Normal extremities with adequate strength and full range of motion. LYMPHATICS: No significant lymphadenopathy is noted PSYCHIATRIC: Patient told me she was going to [place] to a critical care conference if she could get home. Patient denies thinking there are demons in her apartment. Limitations: no limitations Course Vital Signs 10/15/21 17:16 Temperature 97.5 F L Pulse Rate 96 Respiratory 16 Rate Blood Pressure 168/83 O2 Sat by Pulse 98 Oximetry Medical Decision Making - Lab Data Result diagrams: 10/15/21 18:04 10/15/21 18:04 Lab Results 10/15/21 10/15/21 10/15/21 Range/Units 18:04 18:04 18:04 WBC 6.2 (3.8-10.6) k/uL RBC 4.11 (3.80-5.40) m/uL Hgb 13.0 (11.4-16.0) gm/dL Hct 40.3 (34.0-46.0) % MCV 98.0 (80.0-100.0) fL MCH 31.6 (25.0-35.0) pg MCHC 32.3 (31.0-37.0) g/dL RDW 11.7 (11.5-15.5) % Plt Count 149 L (150-450) k/uL MPV 11.3 Neutrophils % 69 % Lymphocytes % 20 % Monocytes % 7 % Eosinophils % 2 % Basophils % 0 % Neutrophils # 4.2 (1.3-7.7) k/uL Lymphocytes # 1.3 (1.0-4.8) k/uL Monocytes # 0.5 (0-1.0) k/uL Eosinophils # 0.1 (0-0.7) k/uL Basophils # 0.0 (0-0.2) k/uL Sodium 137 (137-145) mmol/L Potassium 4.0 (3.5-5.1) mmol/L Chloride 103 (98-107) mmol/L Carbon Dioxide 29 (22-30) mmol/L Anion Gap 5 mmol/L BUN 19 H (7-17) mg/dL Creatinine 0.88 (0.52-1.04) mg/dL Est GFR (CKD-EPI)AfAm 78 (>60 ml/min/1.73 sqM) Est GFR (CKD-EPI)NonAf 67 (>60 ml/min/1.73 sqM) Glucose 238 H (74-99) mg/dL Calcium 8.8 (8.4-10.2) mg/dL Total Bilirubin 0.1 L (0.2-1.3) mg/dL AST 21 (14-36) U/L ALT 15 (4-34) U/L Alkaline Phosphatase 71 (38-126) U/L Total Protein 6.2 L (6.3-8.2) g/dL Albumin 3.4 L (3.5-5.0) g/dL Urine Color Yellow Urine Appearance Clear (Clear) Urine pH 6.0 (5.0-8.0) Ur Specific [place] 1.019 (1.001-1.035) Urine Protein Negative (Negative) Urine Glucose (UA) 4+ H (Negative) Urine Ketones Negative (Negative) Urine Blood Negative (Negative) Urine Nitrite Negative (Negative) Urine Bilirubin Negative (Negative) Urine Urobilinogen <2.0 (<2.0) mg/dL Ur Leukocyte Esterase Large H (Negative) Urine RBC 2 (0-5) /hpf Urine WBC 80 H (0-5) /hpf Urine Bacteria Rare H (None) /hpf Urine Mucus Rare H (None) /hpf Urine Opiates Screen (NotDetected) Ur Oxycodone Screen (NotDetected) Urine Methadone Screen (NotDetected) Ur Propoxyphene Screen (NotDetected) Ur Barbiturates Screen (NotDetected) U Tricyclic Antidepress (NotDetected) Ur Phencyclidine Scrn (NotDetected) Ur Amphetamines Screen (NotDetected) U Methamphetamines Scrn (NotDetected) U Benzodiazepines Scrn (NotDetected) Urine Cocaine Screen (NotDetected) U Marijuana (THC) Screen (NotDetected) Coronavirus (PCR) (Not Detectd) 10/15/21 10/15/21 Range/Units 18:26 19:02 WBC (3.8-10.6) k/uL RBC (3.80-5.40) m/uL Hgb (11.4-16.0) gm/dL Hct (34.0-46.0) % MCV (80.0-100.0) fL MCH (25.0-35.0) pg MCHC (31.0-37.0) g/dL RDW (11.5-15.5) % Plt Count (150-450) k/uL MPV Neutrophils % % Lymphocytes % % Monocytes % % Eosinophils % % Basophils % % Neutrophils # (1.3-7.7) k/uL Lymphocytes # (1.0-4.8) k/uL Monocytes # (0-1.0) k/uL Eosinophils # (0-0.7) k/uL Basophils # (0-0.2) k/uL Sodium (137-145) mmol/L Potassium (3.5-5.1) mmol/L Chloride (98-107) mmol/L Carbon Dioxide (22-30) mmol/L Anion Gap mmol/L BUN (7-17) mg/dL Creatinine (0.52-1.04) mg/dL Est GFR (CKD-EPI)AfAm (>60 ml/min/1.73 sqM) Est GFR (CKD-EPI)NonAf (>60 ml/min/1.73 sqM) Glucose (74-99) mg/dL Calcium (8.4-10.2) mg/dL Total Bilirubin (0.2-1.3) mg/dL AST (14-36) U/L ALT (4-34) U/L Alkaline Phosphatase (38-126) U/L Total Protein (6.3-8.2) g/dL Albumin (3.5-5.0) g/dL Urine Color Urine Appearance (Clear) Urine pH (5.0-8.0) Ur Specific [place] (1.001-1.035) Urine Protein (Negative) Urine Glucose (UA) (Negative) Urine Ketones (Negative) Urine Blood (Negative) Urine Nitrite (Negative) Urine Bilirubin (Negative) Urine Urobilinogen (<2.0) mg/dL Ur Leukocyte Esterase (Negative) Urine RBC (0-5) /hpf Urine WBC (0-5) /hpf Urine Bacteria (None) /hpf Urine Mucus (None) /hpf Urine Opiates Screen Not Detected (NotDetected) Ur Oxycodone Screen Not Detected (NotDetected) Urine Methadone Screen Not Detected (NotDetected) Ur Propoxyphene Screen Not Detected (NotDetected) Ur Barbiturates Screen Not Detected (NotDetected) U Tricyclic Antidepress Not Detected (NotDetected) Ur Phencyclidine Scrn Not Detected (NotDetected) Ur Amphetamines Screen Not Detected (NotDetected) U Methamphetamines Scrn Not Detected (NotDetected) U Benzodiazepines Scrn Not Detected (NotDetected) Urine Cocaine Screen Not Detected (NotDetected) U Marijuana (THC) Screen Not Detected (NotDetected) Coronavirus (PCR) Not Detected (Not Detectd) Disposition Clinical Impression: Psychosis Disposition: ADMITTED IP TO THIS HOSP Referrals: Radha Up MD [Primary Care Provider] - 1-2 days Time of Disposition: 20:17
[2021-10-15 18:35] LABS: Basophils % (A) 0 %; Eosinophils # (A) 0.1 k/uL (0-0.7); Eosinophils % (A) 2 %; HCT 40.3 % (34.0-46.0); Lymphocytes # (A) 1.3 k/uL (1.0-4.8); Lymphocytes % (A) 20 %; MCH 31.6 pg (25.0-35.0); MCHC 32.3 g/dL (31.0-37.0); Mean Platelet Volume 11.3; Monocytes # (A) 0.5 k/uL (0-1.0); Monocytes % (A) 7 %; Neutrophils # (A) 4.2 k/uL (1.3-7.7); Neutrophils % (A) 69 %; Platelet Count 149 k/uL (150-450); RBC 4.11 m/uL (3.80-5.40); RDW 11.7 % (11.5-15.5); WBC 6.2 k/uL (3.8-10.6)
[2021-10-15 18:41] LABS: Appearance,Urine Clear (Clear); Bacteria,Urine Rare /hpf; Bilirubin,Urine Negative (Negative); Blood,Urine Negative (Negative); Color,Urine Yellow; Glucose,Urine (UA) 4+ (Negative); Ketones,Urine Negative (Negative); Leukocyte Esterase,Urine Large (Negative); Mucus,Urine Rare /hpf; Nitrite,Urine Negative (Negative); Protein,Urine Negative (Negative); RBC,Urine 2 /hpf (0-5); Specific Gravity,Urine 1.019 (1.001-1.035); Urobilinogen,Urine <2.0 mg/dL (<2.0); WBC,Urine 80 /hpf (0-5)
[2021-10-15 18:56] LABS: Albumin 3.4 g/dL (3.5-5.0); Calcium 8.8 mg/dL (8.4-10.2); Total Bilirubin 0.1 mg/dL (0.2-1.3); Total Protein 6.2 g/dL (6.3-8.2)
[2021-10-15 19:04] LABS: Amphetamine Screen,Urine Not Detected (NotDetected); Barbiturate Screen,Urine Not Detected (NotDetected); Benzodiazepines Screen,Urine Not Detected (NotDetected); Cocaine Screen,Urine Not Detected (NotDetected); Methadone Screen, Urine Not Detected (NotDetected); Opiate Screen,Urine Not Detected (NotDetected); Oxycodone Screen, Urine Not Detected (NotDetected); Phencyclidine Screen,Urine Not Detected (NotDetected); Tricyclic Antidepressant,Urine Not Detected (NotDetected); Urn Cannabinoid Scrn Not Detected (NotDetected)
[2021-10-15] MEDS ORDERED: ACETAMINOPHEN TAB 325 MG TAB PO PRN (21:28)
[2021-10-15] MEDS ORDERED: MAGNESIUM HYDROXIDE 2,400 MG/10 ML CUP PO PRN (21:28)
[2021-10-15] MEDS ORDERED: MAG HYDROX/AL HYDROX/SIMETH 30 ML CUP PO PRN (21:28)
[2021-10-15] MEDS ORDERED: OLANZapine 10 MG VIAL IM PRN (21:34)
[2021-10-15] MEDS ORDERED: OLANZapine 5 MG TAB PO PRN (21:36)
[2021-10-15] MEDS: metFORMIN 500 MG TAB PO SCH (23:26)
[2021-10-16] MEDS: metFORMIN 500 MG TAB PO SCH ×3 (08:32→20:39)
[2021-10-16] MEDS: amLODIPine 10 MG TAB PO SCH (08:32)
[2021-10-16] MEDS ORDERED: OLANZapine 10 MG VIAL IM PRN (12:58)
--- NOTE | 2021-10-16 13:00 | P.HP ---
Psychiatric H&P - . H&P Date: 10/16/21 History & Physical: Allergies Allergy/AdvReac Type Severity Reaction Status Date / Time Unable to Assess Allergy Verified 08/03/18 20:32 Vital Signs Temp 97.5 F L 10/15/21 21:53 Pulse 77 10/15/21 21:53 Resp 18 10/15/21 21:53 BP 127/75 10/15/21 21:53 Pulse Ox 97 10/15/21 21:53 Intake & Output 10/15/21 10/16/21 10/16/21 18:59 06:59 18:59 Weight 79.389 kg Laboratory Last Values WBC 6.2 k/uL (3.8-10.6) 10/15/21 18:04 RBC 4.11 m/uL (3.80-5.40) 10/15/21 18:04 Hgb 13.0 gm/dL (11.4-16.0) 10/15/21 18:04 Hct 40.3 % (34.0-46.0) 10/15/21 18:04 MCV 98.0 fL (80.0-100.0) 10/15/21 18:04 MCH 31.6 pg (25.0-35.0) 10/15/21 18:04 MCHC 32.3 g/dL (31.0-37.0) 10/15/21 18:04 RDW 11.7 % (11.5-15.5) 10/15/21 18:04 Plt Count 149 k/uL (150-450) L 10/15/21 18:04 MPV 11.3 10/15/21 18:04 Neutrophils % 69 % 10/15/21 18:04 Lymphocytes % 20 % 10/15/21 18:04 Monocytes % 7 % 10/15/21 18:04 Eosinophils % 2 % 10/15/21 18:04 Basophils % 0 % 10/15/21 18:04 Neutrophils # 4.2 k/uL (1.3-7.7) 10/15/21 18:04 Lymphocytes # 1.3 k/uL (1.0-4.8) 10/15/21 18:04 Monocytes # 0.5 k/uL (0-1.0) 10/15/21 18:04 Eosinophils # 0.1 k/uL (0-0.7) 10/15/21 18:04 Basophils # 0.0 k/uL (0-0.2) 10/15/21 18:04 Sodium 137 mmol/L (137-145) 10/15/21 18:04 Potassium 4.0 mmol/L (3.5-5.1) 10/15/21 18:04 Chloride 103 mmol/L (98-107) 10/15/21 18:04 Carbon Dioxide 29 mmol/L (22-30) 10/15/21 18:04 Anion Gap 5 mmol/L 10/15/21 18:04 BUN 19 mg/dL (7-17) H 10/15/21 18:04 Creatinine 0.88 mg/dL (0.52-1.04) 10/15/21 18:04 Est GFR (CKD-EPI)AfAm 78 (>60 ml/min/1.73 sqM) 10/15/21 18:04 Est GFR (CKD-EPI)NonAf 67 (>60 ml/min/1.73 sqM) 10/15/21 18:04 Glucose 238 mg/dL (74-99) H 10/15/21 18:04 Calcium 8.8 mg/dL (8.4-10.2) 10/15/21 18:04 Total Bilirubin 0.1 mg/dL (0.2-1.3) L 10/15/21 18:04 AST 21 U/L (14-36) 10/15/21 18:04 ALT 15 U/L (4-34) 10/15/21 18:04 Alkaline Phosphatase 71 U/L (38-126) 10/15/21 18:04 Total Protein 6.2 g/dL (6.3-8.2) L 10/15/21 18:04 Albumin 3.4 g/dL (3.5-5.0) L 10/15/21 18:04 Urine Color Yellow 10/15/21 18:04 Urine Appearance Clear (Clear) 10/15/21 18:04 Urine pH 6.0 (5.0-8.0) 10/15/21 18:04 Ur Specific [place] 1.019 (1.001-1.035) 10/15/21 18:04 Urine Protein Negative (Negative) 10/15/21 18:04 Urine Glucose (UA) 4+ (Negative) H 10/15/21 18:04 Urine Ketones Negative (Negative) 10/15/21 18:04 Urine Blood Negative (Negative) 10/15/21 18:04 Urine Nitrite Negative (Negative) 10/15/21 18:04 Urine Bilirubin Negative (Negative) 10/15/21 18:04 Urine Urobilinogen <2.0 mg/dL (<2.0) 10/15/21 18:04 Ur Leukocyte Esterase Large (Negative) H 10/15/21 18:04 Urine RBC 2 /hpf (0-5) 10/15/21 18:04 Urine WBC 80 /hpf (0-5) H 10/15/21 18:04 Urine Bacteria Rare /hpf (None) H 10/15/21 18:04 Urine Mucus Rare /hpf (None) H 10/15/21 18:04 Urine Opiates Screen Not Detected (NotDetected) 10/15/21 18:26 Ur Oxycodone Screen Not Detected (NotDetected) 10/15/21 18:26 Urine Methadone Screen Not Detected (NotDetected) 10/15/21 18:26 Ur Propoxyphene Screen Not Detected (NotDetected) 10/15/21 18:26 Ur Barbiturates Screen Not Detected (NotDetected) 10/15/21 18:26 U Tricyclic Antidepress Not Detected (NotDetected) 10/15/21 18:26 Ur Phencyclidine Scrn Not Detected (NotDetected) 10/15/21 18:26 Ur Amphetamines Screen Not Detected (NotDetected) 10/15/21 18:26 U Methamphetamines Scrn Not Detected (NotDetected) 10/15/21 18:26 U Benzodiazepines Scrn Not Detected (NotDetected) 10/15/21 18:26 Urine Cocaine Screen Not Detected (NotDetected) 10/15/21 18:26 U Marijuana (THC) Screen Not Detected (NotDetected) 10/15/21 18:26 Coronavirus (PCR) Not Detected (Not Detectd) 10/15/21 19:02 10/16/21 13:00 IDENTIFYING DATA: Patient is a 70-year-old, single, unemployed, -[place] female who was most recently discharged on 10/15/21 was brought back to the hospital due to delusional beliefs and psychotic behavior. HPI: Patient presented to the hospital on 10/15/21, shortly after being discharged from the psychiatric unit. As per chart review, the patient was picked up by the ACT team and brought to her apartment. The patient refused to enter the apartment stating that there was a demon's in the apartment and that she had her belongings which she plan to donate all of them to [facility]. When assessed on the psychiatric unit, the patient vehemently denies this report. She expresses disdain as to why she was readmitted and is unable to provide a clear history of events. The patient refuses the psychiatric interview and walks out during this initial interview. The patient was most recently admitted on to the psychiatric unit on 09/20/[address] for medications during this psychiatric hospitalization. The patient has been intermittently adherent with the medications and was discharged with a long-acting injectable dose of Invega Sustenna 234 mg IM on 10/14/2021. PAST PSYCHIATRIC HISTORY: Patient has a significant history of schizophrenia, and has had previous trials of medications including Haldol Decanoate, Lamictal, Zyprexa, and most recently was placed on long-acting Invega Sustenna. The patient has had 2 prior psychiatric hospitalizations on this unit. The patient is open with CM in the ACT team patient the patient reports no prior attempts at suicide. PMH: Past Medical History: Diabetes Mellitus Additional Past Medical History / Comment(s): limited history, pt is not able to answer acurrately. States she sees a track repairer and takes aspirin but is unsure why. History of Any Multi-Drug Resistant Organisms: Unobtainable Past Surgical History: Unable to Obtain Past Psychological History: Depression Smoking Status: Never smoker Past Alcohol Use History: None Reported Past Drug Use History: None Reported ALLERGIES: Patient denies any significant ALLERGIES. CHEMICAL DEPENDENCY HISTORY: Patient reports no substance abuse history. FAMILY PSYCHIATRIC/SUBSTANCE USE HISTORY: Unable to assess. SOCIAL HISTORY: Patient currently lives in her own apartment. She is her own guardian. MENTAL STATUS EXAM: General Appearance: Patient appears to be stated age is alert, uncooperative and difficult to direct. Patient appears to have fair hygiene and grooming. She continues to dress in the same hospital gown and she was discharged in. Behavior: Patient is seated without any agitated behavior. Eye contact is intermittent. Speech: Patient's speech is fluent and nonpressured. Nonspontaneous and monotone. Mood/Affect: Patient reports their mood is upset, affect is irritable Suicidality/Homicidality: Unable to assess Perceptions: Unable to assess Though content/process: Bizarre delusional thought content was endorse prior to this admission however she is not currently endorsing any to this provider overtly. Memory and concentration: Poor Judgment and insight: Grossly poor STRENGTHS/WEAKNESSES: Strength is that the patient is in relatively good physical health and is open with the ACT team. Weakness is that the patient has treatment resistant schizophrenia and a history of nonadherence to treatment. Very poor insight and judgment. INTELLECT: average IMPRESSIONS: Schizophrenia PLAN: -Patient is admitted under an involuntary status to MHU for stabilization of psychiatric symptoms and safety. Patient is admitted under a pickup order. -Medications : We will restart Invega 6 mg at bedtime with plans to transition the patient to Invega Sustenna 156 mg IM on 10/21/21. - Zyprexa PRN for agitation/aggression -Patient was informed of the risks, benefits and side effects of the medication and patient verbally consented to taking the medications. Patient signed med consent form and was placed in chart. -Internal Medicine consult to perform medical evaluation and physical. -SW on board for discharge planning. Encourage patient to participate in groups to work on coping skills. 10/16/21 13:00
[2021-10-16 17:42] LABS: Glucose,Whole Blood 156 mg/dL (75-99)
[2021-10-16] MEDS: PALIPERIDONE 6 MG TAB.ER.24 PO SCH (20:38)
[2021-10-16] MEDS: DOCUSATE 100 MG CAP PO SCH (20:39)
--- NOTE | 2021-10-17 05:09 | P.CONS ---
History of Present Illness - History of Present Illness This is a pleasant 70 years old female with past medical history of diabetes mellitus, depression, and other psychiatric illnesses, was admitted to the mental health unit for signs symptoms of schizophrenia. Medical consult has been requested for routine medical management. Patient was sitting in the hallway looks comfortable and denying any specific symptom. She denies chest pain or dyspnea. No abdominal pain. No change in urine or bowel habits. No fever. She has some mild bilateral leg swelling which is ongoing for a while as per patient. Hemodynamically stable and patient is afebrile Labs show no leukocytosis with CBC is unremarkable. Platelet count 149. BMP is unremarkable. Glucose 238 and 156. Liver enzymes elevated. Urinalysis showed 4+ glucose and large leukocyte esterase Urine drug screen is negative. Coronavirus not detected. Review of Systems Review of systems CONSTITUTIONAL: No fever, no malaise, no fatigue. HEENT: No recent visual problems or hearing problems. Denied any sore throat. CARDIOVASCULAR: No orthopnea, PND, no palpitations, no syncope. PULMONARY: No shortness of breath, no cough, no hemoptysis. GASTROINTESTINAL: No diarrhea, no nausea, no vomiting, no abdominal pain. Normoactive bowel sounds. NEUROLOGICAL: No headaches, no weakness, no numbness. HEMATOLOGICAL: Denies any bleeding or petechiae. GENITOURINARY: Denies any burning micturition, frequency, or urgency. MUSCULOSKELETAL/RHEUMATOLOGICAL: Denies any joint pain, swelling, or any muscle pain. ENDOCRINE: Denies any polyuria or polydipsia. Past Medical History Past Medical History: Diabetes Mellitus Additional Past Medical History / Comment(s): limited history, pt is not able to answer acurrately. States she sees a api architect and takes aspirin but is un sure why. History of Any Multi-Drug Resistant Organisms: Unobtainable Past Surgical History: Unable to Obtain Past Psychological History: Depression Smoking Status: Never smoker Past Alcohol Use History: None Reported Past Drug Use History: None Reported Medications and Allergies Home Medications Medication Instructions Recorded Confirmed Type Paliperidone IM [Invega Sustenna] 156 mg IM QMONTHLY #1 each 10/15/21 10/15/21 Rx amLODIPine [Norvasc] 10 mg PO DAILY 30 Days tab 10/15/21 10/15/21 Rx metFORMIN HCL [Glucophage] 500 mg PO TID 30 Days tab 10/15/21 10/15/21 Rx Allergies Allergy/AdvReac Type Severity Reaction Status Date / Time Unable to Assess Allergy Verified 08/03/18 20:32 Physical Exam Vitals: Vital Signs Temp Pulse Pulse Resp BP BP Pulse Ox 10/15/21 21:53 97.5 F L 77 18 127/75 97 10/15/21 17:16 97.5 F L 96 16 168/83 98 Intake and Output 10/15/21 10/16/21 10/16/21 22:59 06:59 14:59 Other: Weight 79.389 kg -GENERAL: The patient is alert and oriented x3, not in any acute distress. Overweight HEENT: Pupils are round and equally reacting to light. EOMI. No scleral icterus. No conjunctival pallor. Normocephalic, atraumatic. No pharyngeal erythema. No thyromegaly. CARDIOVASCULAR: S1 and S2 present. No murmurs, rubs, or gallops. PULMONARY: Chest is clear to auscultation, no wheezing or crackles. ABDOMEN: Soft, nontender, nondistended, normoactive bowel sounds. No palpable organomegaly. MUSCULOSKELETAL: No joint swelling or deformity. -EXTREMITIES: No cyanosis, clubbing. Bilateral leg edema, mild NEUROLOGICAL: Gross neurological examination did not reveal any focal deficits. SKIN: No rashes. no petechiae. Results CBC & Chem 7: 10/15/21 18:04 10/15/21 18:04 Labs: Abnormal Lab Results - Last 24 Hours (Table) 10/15/21 10/15/21 10/15/21 Range/Units 18:04 18:04 18:04 Plt Count 149 L (150-450) k/uL BUN 19 H (7-17) mg/dL Glucose 238 H (74-99) mg/dL Total Bilirubin 0.1 L (0.2-1.3) mg/dL Total Protein 6.2 L (6.3-8.2) g/dL Albumin 3.4 L (3.5-5.0) g/dL Urine Glucose (UA) 4+ H (Negative) Ur Leukocyte Esterase Large H (Negative) Urine WBC 80 H (0-5) /hpf Urine Bacteria Rare H (None) /hpf Urine Mucus Rare H (None) /hpf Microbiology - Last 24 Hours (Table) 10/15/21 18:04 Urine Culture - Preliminary Urine,Voided Assessment and Plan Assessment: -Schizophrenia and other psychiatric illnesses, management as per psych team -Diabetes mellitus: Continue with metformin and diabetic diet -Hypertension: Continue with Norvasc -Asymptomatic bacteriuria, patient denies any urinary symptoms. No fever or leukocytosis. No need for antibiotic. However patient develops symptoms or become feverish then may need to be restarted on antibiotics and check urine culture however currently she is asymptomatic. Patient was instructed to follow up with her PCP in one week after discharge and she agrees Thank you for consulting us, we will see the patient on an as-needed basis. No free to contact us for any further question
[2021-10-17] MEDS: metFORMIN 500 MG TAB PO SCH ×3 (08:29→23:51)
[2021-10-17] MEDS: amLODIPine 10 MG TAB PO SCH (08:29)
[2021-10-17] MEDS: DOCUSATE 100 MG CAP PO SCH ×2 (08:29→08:41)
--- NOTE | 2021-10-17 11:05 | P.PN ---
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 Subjective data: Patient reports that she was just discharged from this unit and she came back because the discharge plans were incompatible Patient continues to report the word "incompatible 'although she is unable to explain the situation that resulted in her being brought to the hospital Patient states that she is otherwise doing fine and has no new problems or issues She says that they need to straighten out their support system for her to be able to go home Objective data: The patient continues to rationalize intellectualize and remains very projective Patient's insight into her problem is poor The chart reveals that the patient was very psychotic and delusional and had to be readmitted due to inhibitor to care for herself and her basic needs and for grave disability Patient rambles about the different issues and seems to be projective Patient's insight into her problem is poor Assessment: Schizophrenia chronic undifferentiated type Plan: The patient is currently hospitalized on an involuntary status Patient has been restarted on Invega 6 mg at bedtime with eventual plans to be started on long-acting antipsychotic bottle line worker on board for discharge planning Sergei Florez MD / Objective - Vital Signs Vital signs: Vital Signs Temp 97.7 F 10/17/21 06:44 Pulse 99 10/17/21 06:44 Resp 16 10/17/21 06:44 BP 110/66 10/17/21 06:44 Pulse Ox 97 10/15/21 21:53 - Labs CBC & Chem 7: 10/15/21 18:04 10/15/21 18:04 Labs: Abnormal Lab Results - Last 24 Hours (Table) 10/16/21 Range/Units 17:40 POC Glucose (mg/dL) 156 H (75-99) mg/dL Microbiology - Last 24 Hours (Table) 10/15/21 18:04 Urine Culture - Final Urine,Voided
[2021-10-17] MEDS: PALIPERIDONE 6 MG TAB.ER.24 PO SCH (20:49)
[2021-10-17 20:50] LABS: Glucose,Whole Blood 226 mg/dL (75-99)
[2021-10-18 07:55] LABS: Glucose,Whole Blood 142 mg/dL (75-99)
[2021-10-18] MEDS: metFORMIN 500 MG TAB PO SCH ×3 (08:14→20:29)
[2021-10-18] MEDS: amLODIPine 10 MG TAB PO SCH (08:14)
[2021-10-18] MEDS: DOCUSATE 100 MG CAP PO SCH ×2 (08:14→20:29)
--- NOTE | 2021-10-18 11:46 | P.PN ---
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 Subjective data: The patient reports that she is ready to go home and that she could handle on her response reason issues She said that the apartment where she is staying that she has neighbors and her sister worried to help Patient stated that the problem was more to do with the discharge planning not being compatible" Objective data: The patient continues to rationalize intellectualize and remains very projective Patient's insight into her problem is poor The chart reveals that the patient was very psychotic and delusional and had to be readmitted due to inhibitor to care for herself and her basic needs and for grave disability Patient rambles about the different issues and seems to be projective Patient's insight into her problem is poor Assessment: Schizophrenia chronic undifferentiated type Plan: The patient is currently hospitalized on an involuntary status Patient has been restarted on Invega 6 mg at bedtime with eventual plans to be started on long-acting antipsychotic. We'll add Invega 3 mg in the morning also riprap worker on board for discharge planning Sergei Florez MD 10/18/2021 Objective - Vital Signs Vital signs: Vital Signs Temp 96.6 F L 10/18/21 07:26 Pulse 99 10/18/21 07:26 Resp 18 10/18/21 07:26 BP 117/58 10/18/21 07:26 Pulse Ox 97 10/15/21 21:53 Intake & Output 10/17/21 10/18/21 10/18/21 18:59 06:59 18:59 Weight 88.8 kg - Labs CBC & Chem 7: 10/15/21 18:04 10/15/21 18:04 Labs: Abnormal Lab Results - Last 24 Hours (Table) 10/17/21 10/18/21 Range/Units 20:48 07:53 POC Glucose (mg/dL) 226 H 142 H (75-99) mg/dL
[2021-10-18] MEDS: PALIPERIDONE 3 MG TAB.ER.24 PO SCH (12:48)
[2021-10-18] MEDS: PALIPERIDONE 6 MG TAB.ER.24 PO SCH (20:30)
[2021-10-19 07:47] LABS: Glucose,Whole Blood 129 mg/dL (75-99)
[2021-10-19] MEDS: DOCUSATE 100 MG CAP PO SCH ×2 (09:06→20:14)
[2021-10-19] MEDS: metFORMIN 500 MG TAB PO SCH ×3 (09:06→20:14)
[2021-10-19] MEDS: amLODIPine 10 MG TAB PO SCH (09:06)
[2021-10-19] MEDS: PALIPERIDONE 3 MG TAB.ER.24 PO SCH ×2 (09:21→20:14)
--- NOTE | 2021-10-19 11:36 | P.PN ---
Progress Note - Text Progress Note Date: 10/19/21 Interval History: Patient was seen wandering the hallways and was directable and agreeable to speak with writer producer in the office. Currently, the patient has been adherent with her medications and is not endorsing any significant side effects at this time. The patient continues to deny the reasons for her admission. She appears to have limited insight as to what she is even being treated for despite this provider discussing her diagnosis with her at length. The patient's reality testing appears to be poor. She is otherwise not reporting any significant mood symptoms. She is denying any suicidal or homicidal ideation, intention, and/or plan. Patient denies any auditory or visual hallucinations. The patient reports no paranoia or overt delusions at this time. Mental Status Exam: General Appearance: Patient appears to be stated age is alert, directable, and cooperative. The patient is dressed in the same hospital gown and mask. Behavior: Patient is calmly seated without any agitated behavior. Speech: Patient's speech is fluent and nonpressured. Mood/Affect: Mood is improving mildly, affect is congruent and constricted. Suicidality/Homicidality: Patient denies having any suicidal or homicidal ideation intent or plan. Perceptions: Patient denies any visual hallucinations and denies any auditory hallucinations Though content/process: There is no evidence of any delusional thought content and thought process is linear and goal-directed. Memory and concentration: AOX3, grossly intact for the purposes of this session Judgment and insight: Improving mildly Vital Signs Temp 97.0 F L 10/19/21 05:23 Pulse 77 10/19/21 05:23 Resp 14 10/19/21 05:23 BP 138/88 10/19/21 05:23 Pulse Ox 95 10/19/21 05:23 Intake & Output 10/18/21 10/19/21 10/19/21 18:59 06:59 18:59 Weight 88.8 kg Laboratory Results - Last 24 Hours 10/19/21 07:46 POC Glucose (mg/dL) 129 H POC Glu [employer] ID Blaire Zavaleta Assessment Schizophrenia Plan: -Patient continues to meet criteria for inpatient psychiatric admission for symptom stabilization and safety. Patient is calmly court ordered for medications and mental health treatment. -Medications: We will increase Invega to 9 mg at bedtime and transition patient to Invega Sustenna 156 mg IM tomorrow. We'll reassess with the patient is able to return home or go she require guardianship and fpc placement. -Despite having much her belongings with her, the patient continues to dress in the same hospital gown and mask and dress this way even when she was discharged. We will use this as a measure of the patient's psychiatric pathology. -When necessary Zyprexa for agitation/aggression. -SW on board for discharge planning. Encouraged the patient to participate in milieu.
[2021-10-19 17:31] LABS: Glucose,Whole Blood 160 mg/dL (75-99)
[2021-10-20 07:47] LABS: Glucose,Whole Blood 147 mg/dL (75-99)
[2021-10-20] MEDS: amLODIPine 10 MG TAB PO SCH (08:46)
[2021-10-20] MEDS: DOCUSATE 100 MG CAP PO SCH ×2 (08:46→22:11)
[2021-10-20] MEDS: metFORMIN 500 MG TAB PO SCH ×3 (08:47→22:11)
[2021-10-20] MEDS ORDERED: PALIPERIDONE IM 156 MG/ML SYG IM STA (10:13)
[2021-10-20 12:50] LABS: Glucose,Whole Blood 148 mg/dL (75-99)
--- NOTE | 2021-10-20 13:09 | P.PN ---
Progress Note - Text Progress Note Date: 10/20/21 Interval History: Patient was seen wandering the hallways and was directable and agreeable to speak with global technical writer in the office. The patient continues to endorse some bizarre and psychotic behavior. The patient has not changed out of her hospital gown since her last admission. She refuses to change into the home clothes which she brought to the hospital stating that "other people for my clothes and their stuff in it." The patient does not respond to redirection and denies any at tempt to reason with her at the clothes have not been touched other than for inspection by staff. She is otherwise not reporting any auditory hallucinations. She continues to endorse significant paranoia. She denies any issues regarding her medications and is not reporting any significant side effects at this time. She reports no issues regarding her sleep or her appetite. Mental Status Exam: General Appearance: Patient appears to be stated age is alert, directable, and cooperative. The patient is dressed in the same hospital gown and mask. Behavior: Patient is calmly seated without any agitated behavior. Speech: Patient's speech is fluent and nonpressured. Mood/Affect: Mood is irritable, affect is congruent and blunted. Suicidality/Homicidality: Patient denies having any suicidal or homicidal ideation intent or plan. Perceptions: Patient denies any visual hallucinations and denies any auditory hallucinations Though content/process: The patient is endorsing bizarre delusional thought content and paranoia. Memory and concentration: AOX3, grossly intact for the purposes of this session Judgment and insight: Improving mildly Vital Signs Temp 96.4 F L 10/20/21 05:04 Pulse 97 10/20/21 05:04 Resp 18 10/20/21 05:04 BP 140/68 10/20/21 05:04 Pulse Ox 95 10/19/21 05:23 Laboratory Results - Last 24 Hours 10/19/21 10/20/21 10/20/21 17:30 07:46 12:48 POC Glucose (mg/dL) 160 H 147 H 148 H POC Glu [employer] Energy Advisor Domonique Root Shelly Nitschke, Colleen Assessment Schizophrenia Plan: -Patient continues to meet criteria for inpatient psychiatric admission for symptom stabilization and safety. Patient is currently court ordered for medications and mental health treatment. -Consider placement in an AFC home after he obtained emergency guardianship as the patient does not display inability to care for oneself due to the poor insight and judgment secondary to her severe mental illness. -Medications: Continue Invega 9 mg at bedtime and transition patient to Invega Sustenna 156 today. -When necessary Zyprexa for agitation/aggression. -SW on board for discharge planning. Encouraged the patient to participate in milieu.
[2021-10-20 17:37] LABS: Glucose,Whole Blood 176 mg/dL (75-99)
[2021-10-20] MEDS: PALIPERIDONE 3 MG TAB.ER.24 PO SCH (22:11)
[2021-10-21 06:55] VITALS: BP 140/66; PULSE 101; RESP 16; TEMP 97.3
[2021-10-21 07:56] LABS: Glucose,Whole Blood 169 mg/dL (75-99)
[2021-10-21] MEDS: DOCUSATE 100 MG CAP PO SCH (08:56)
[2021-10-21] MEDS: amLODIPine 10 MG TAB PO SCH (08:56)
[2021-10-21] MEDS: metFORMIN 500 MG TAB PO SCH (08:57)
--- NOTE | 2021-10-21 13:43 | P.DS ---
Providers Date of admission: 10/15/21 21:25 Expected date of discharge: 10/21/21 Attending physician: Sg Leslie MD Consults: 10/15/21 21:28 Consult Physician Routine Consulting Provider: Thaddeus Best Consult Reason/Comments: history and physical/medical management Do you want consulting provider notified?: Yes Primary care physician: Radha Up - Discharge Diagnosis(es) (1) Schizophrenia, chronic with acute exacerbation Current Visit: Yes Status: Chronic Priority: High Hospital Course: Admission HPI: Patient is a 70-year-old, single, unemployed, -[place] female who was most recently discharged on 10/15/21 was brought back to the hospital due to delusional beliefs and psychotic behavior. Patient presented to the hospital on 10/15/21, shortly after being discharged from the psychiatric unit. As per chart review, the patient was picked up by the ACT team and brought to her apartment. The patient refused to enter the apartment stating that there was a demon's in the apartment and that she had her belongings which she plan to donate all of them to [facility]. When assessed on the psychiatric unit, the patient vehemently denies this report. She expresses disdain as to why she was readmitted and is unable to provide a clear history of events. The patient refuses the psychiatric interview and walks out during this initial interview. The patient was most recently admitted on to the psychiatric unit on 09/20/[address] for medications during this psychiatric hospitalization. The patient has been intermittently adherent with the medications and was discharged with a long-acting injectable dose of Invega Sustenna 234 mg IM on 10/14/2021. PAST PSYCHIATRIC HISTORY: Patient has a significant history of schizophrenia, and has had previous trials of medications including Haldol Decanoate, Lamictal, Zyprexa, and most recently was placed on long-acting Invega Sustenna. The patient has had 2 prior psychiatric hospitalizations on this unit. The patient is open with [facility] in the ACT team patient the patient reports no prior attempts at suicide. Hospital course: Upon admission to the unit patient was initially confused and irritable as to why she was readmitted on to the psychiatric unit. Despite attempts by this provider educated the patient on her psychotic symptoms, the patient denied that these actually occurred. However, the patient was started on Invega again and this medication was titrated up to 9 mg daily. The patient was adherent with her medications for psychiatry but not her medical medications. The patient was a major transition to Invega Sustenna 156 mg IM which was last given on 10/20/2021. The patient tolerated the medication well. As a measure of the patient's severity of psychotic symptoms, we monitored the patient's ability to change her clothes and plan for the future. Family contacted the psychiatric unit and we were able to coordinate care. The patient displayed significant improvement with the addition of Invega Sustenna and became more future oriented. 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 The patient was subsequently discharged. The patient continued to question whether she required her lip pressure and blood sugar medications upon discharge however was informed to have this discussion with her primary care physician. Despite her nonadherence with those medications, her blood sugars and blood pressure appeared to be elevated but not critical. Furthermore, the patient did not endorse any significant medical symptoms and reported no chest pain, shortness of breath, headache, blurry vision, or generalized feelings of malaise. Mental status exam: General Appearance: Patient appears to be stated age is alert, pleasant, and cooperative. Patient is in no acute distress and has fair hygiene and grooming Behavior: Patient is calmly seated without any agitated behavior. Speech: Patient's speech is fluent and nonpressured. Mood/Affect: Patient reports their mood is "much better", affect is congruent and euthymic. Suicidality/Homicidality: Patient denies having any suicidal or homicidal ideation intent or plan. Perceptions: Patient denies any auditory or visual hallucinations. Though content/process: There is no evidence of any delusional thought content and thought process is linear and goal-directed. Patient is more future oriented. Memory and concentration: AOX3, grossly intact for the purposes of this session. Can spell "WORLD" backwards correctly. Judgment and insight: Improved with guarded prognosis Vital Signs Temp 97.3 F L 10/21/21 06:43 Pulse 101 H 10/21/21 06:43 Resp 16 10/21/21 06:43 BP 140/66 10/21/21 06:43 Pulse Ox 95 10/19/21 05:23 Impression: Schizophrenia Plan: -Continue with discharge today as patient has improved and stabilized psychiatrically and is not currently an imminent threat to herself and/or others. Patient will remain at chronically elevated risk due to the severity of her mental illness and poor insight. -Continue medications: Invega Sustenna 156 mg IM which was less administered on 10/20/21. Next dose due on 11/17/2021 -Patient was counseled on the need for medication compliance and appropriate follow-up at mental health and also primary care for medical issues. Patient verbalized understanding and agreed. -Social work to arrange for and conduct family meeting to ensure safety upon discharge and answer any questions/concerns. Social work also to arrange for patients follow up appointments with [facility] for psychiatric care along with follow up with primary care provider. -Patient counseled on abstaining from recreational drugs and marijuana and alcohol. Was informed/educated on the adverse effects on their physical and mental health. Patient verbally agreed and understood. -Patient was instructed to return to the hospital or seek immediate medical care if their psychiatric or medical symptoms do worsen or reoccur. -Psychoeducation and supportive therapy provided to patient. Risks and benefits of pharmacological treatment versus the risks and benefits of nontreatment weight and discussed. Informed consent discussion held. Common side effects of psychotropics discussed such as, but not limited to headache, GI disturbance, sexual dysfunction, movement disorders, sedation, and orthostatic hypotension. Life threatening and blackbox warnings of prescribed medications also discussed. Potential risks of operating a vehicle or heavy machinery discussed with patient at length. Advised on importance of compliance and a reliable and responsible manner. Patient advised to review FDA consumer labeling of all medications prior to taking. Patient verbalized understanding of potential risks, and agrees with current treatment plan. Patient advised to medically contact physician/emergency personnel if any acute changes in condition occur. Allergies Allergy/AdvReac Type Severity Reaction Status Date / Time Unable to Assess Allergy Verified 08/03/18 20:32 Laboratory Results WBC 6.2 k/uL (3.8-10.6) 10/15/21 18:04 RBC 4.11 m/uL (3.80-5.40) 10/15/21 18:04 Hgb 13.0 gm/dL (11.4-16.0) 10/15/21 18:04 Hct 40.3 % (34.0-46.0) 10/15/21 18:04 MCV 98.0 fL (80.0-100.0) 10/15/21 18:04 MCH 31.6 pg (25.0-35.0) 10/15/21 18:04 MCHC 32.3 g/dL (31.0-37.0) 10/15/21 18:04 RDW 11.7 % (11.5-15.5) 10/15/21 18:04 Plt Count 149 k/uL (150-450) L 10/15/21 18:04 MPV 11.3 10/15/21 18:04 Neutrophils % 69 % 10/15/21 18:04 Lymphocytes % 20 % 10/15/21 18:04 Monocytes % 7 % 10/15/21 18:04 Eosinophils % 2 % 10/15/21 18:04 Basophils % 0 % 10/15/21 18:04 Neutrophils # 4.2 k/uL (1.3-7.7) 10/15/21 18:04 Lymphocytes # 1.3 k/uL (1.0-4.8) 10/15/21 18:04 Monocytes # 0.5 k/uL (0-1.0) 10/15/21 18:04 Eosinophils # 0.1 k/uL (0-0.7) 10/15/21 18:04 Basophils # 0.0 k/uL (0-0.2) 10/15/21 18:04 Sodium 137 mmol/L (137-145) 10/15/21 18:04 Potassium 4.0 mmol/L (3.5-5.1) 10/15/21 18:04 Chloride 103 mmol/L (98-107) 10/15/21 18:04 Carbon Dioxide 29 mmol/L (22-30) 10/15/21 18:04 Anion Gap 5 mmol/L 10/15/21 18:04 BUN 19 mg/dL (7-17) H 10/15/21 18:04 Creatinine 0.88 mg/dL (0.52-1.04) 10/15/21 18:04 Est GFR (CKD-EPI)AfAm 78 (>60 ml/min/1.73 sqM) 10/15/21 18:04 Est GFR (CKD-EPI)NonAf 67 (>60 ml/min/1.73 sqM) 10/15/21 18:04 Glucose 238 mg/dL (74-99) H 10/15/21 18:04 POC Glucose (mg/dL) 169 mg/dL (75-99) H 10/21/21 07:54 POC Glu Test Engineering Manager ID Danielle Ch 10/21/21 07:54 Calcium 8.8 mg/dL (8.4-10.2) 10/15/21 18:04 Total Bilirubin 0.1 mg/dL (0.2-1.3) L 10/15/21 18:04 AST 21 U/L (14-36) 10/15/21 18:04 ALT 15 U/L (4-34) 10/15/21 18:04 Alkaline Phosphatase 71 U/L (38-126) 10/15/21 18:04 Total Protein 6.2 g/dL (6.3-8.2) L 10/15/21 18:04 Albumin 3.4 g/dL (3.5-5.0) L 10/15/21 18:04 Urine Color Yellow 10/15/21 18:04 Urine Appearance Clear (Clear) 10/15/21 18:04 Urine pH 6.0 (5.0-8.0) 10/15/21 18:04 Ur Specific [place] 1.019 (1.001-1.035) 10/15/21 18:04 Urine Protein Negative (Negative) 10/15/21 18:04 Urine Glucose (UA) 4+ (Negative) H 10/15/21 18:04 Urine Ketones Negative (Negative) 10/15/21 18:04 Urine Blood Negative (Negative) 10/15/21 18:04 Urine Nitrite Negative (Negative) 10/15/21 18:04 Urine Bilirubin Negative (Negative) 10/15/21 18:04 Urine Urobilinogen <2.0 mg/dL (<2.0) 10/15/21 18:04 Ur Leukocyte Esterase Large (Negative) H 10/15/21 18:04 Urine RBC 2 /hpf (0-5) 10/15/21 18:04 Urine WBC 80 /hpf (0-5) H 10/15/21 18:04 Urine Bacteria Rare /hpf (None) H 10/15/21 18:04 Urine Mucus Rare /hpf (None) H 10/15/21 18:04 Urine Opiates Screen Not Detected (NotDetected) 10/15/21 18:26 Ur Oxycodone Screen Not Detected (NotDetected) 10/15/21 18:26 Urine Methadone Screen Not Detected (NotDetected) 10/15/21 18:26 Ur Propoxyphene Screen Not Detected (NotDetected) 10/15/21 18:26 Ur Barbiturates Screen Not Detected (NotDetected) 10/15/21 18:26 U Tricyclic Antidepress Not Detected (NotDetected) 10/15/21 18:26 Ur Phencyclidine Scrn Not Detected (NotDetected) 10/15/21 18:26 Ur Amphetamines Screen Not Detected (NotDetected) 10/15/21 18:26 U Methamphetamines Scrn Not Detected (NotDetected) 10/15/21 18:26 U Benzodiazepines Scrn Not Detected (NotDetected) 10/15/21 18:26 Urine Cocaine Screen Not Detected (NotDetected) 10/15/21 18:26 U Marijuana (THC) Screen Not Detected (NotDetected) 10/15/21 18:26 Coronavirus (PCR) Not Detected (Not Detectd) 10/15/21 19:02 Patient Condition at Discharge: Stable Plan - Discharge Summary New Discharge Prescriptions: New amLODIPine [Norvasc] 10 mg PO DAILY 30 Days tab metFORMIN HCL [Glucophage] 500 mg PO TID 30 Days tab Continue Paliperidone IM [Invega Sustenna] 156 mg IM QMONTHLY #1 each Discontinued metFORMIN HCL [Glucophage] 500 mg PO TID 30 Days tab amLODIPine [Norvasc] 10 mg PO DAILY 30 Days tab Discharge Medication List Paliperidone IM [Invega Sustenna] 156 mg IM QMONTHLY #1 each 10/21/21 [Rx] amLODIPine [Norvasc] 10 mg PO DAILY 30 Days tab 10/21/21 [Rx] metFORMIN HCL [Glucophage] 500 mg PO TID 30 Days tab 10/21/21 [Rx] Follow up Appointment(s)/Referral(s): [facility] [Outside] - 10/21/21 4:00 pm (ACT Team 10/21/2021 @ 16:00 11/05/2021 14:30-15:[address] Guzman ) Radha Up MD [Primary Care Provider] - 1-2 days Patient Instructions/Handouts: Schizophrenia (DC) Activity/Diet/Wound Care/Special Instructions: Activity and diet as tolerated. Avoid the use of street drugs and alcohol. Take all medications as prescribed. When you are in need of refills on your medications please contact your medical provider and/or outpatient psychiatrist to have this done. Please go to scheduled outpatient appointment for aftercare treatment. If symptoms return or become worse, call the crisis line at and/or go to the nearest emergency room for evaluation Discharge Disposition: HOME SELF-CARE
== END 2021-10-21 13:15 | disposition home or self-care (01) | DRG 885 ==
LOC: EC 16:57 → 3MHU 21:25
PROVIDERS: ADMIT Psychiatry & Neurology Psychiatry; ATTEND Psychiatry & Neurology Psychiatry
DX: F20.9 Schizophrenia, unspecified (principal); E11.9 Type 2 diabetes mellitus without complications; F32.A Depression, unspecified; I10 Essential (primary) hypertension; Z79.82 Long term (current) use of aspirin; Z79.84 Long term (current) use of oral hypoglycemic drugs; Z79.899 Other long term (current) drug therapy; Z20.822 Contact with and (suspected) exposure to COVID-19
CPT/HCPCS: 36415; 80053; 80306; 81001; 82075; 85025; 87086; 87635; 99285